=== PATIENT | female | born 1945 | race Caucasian/White ===

== ENCOUNTER → 2018-01-27 11:25 | Outpatient (CLI) | payer MEDICARE, OTHER, SELFPAY ==
[2018-01-27 14:49] LABS: Microalbumin,Random Urine < 5.0 mg/L (NO RANGE EST.)
[2018-01-27 14:52] LABS: AST(SGOT) 21 U/L (15-37); Alanine Aminotransfer ALT/SGPT 29 U/L (13-56); Albumin, Serum 3.6 g/dL (3.2-5.0); Alkaline Phosphatase 76 U/L (45-117); Anion Gap 9 (5-15); BUN 24 mg/dL (7-18); Bilirubin, Direct 0.16 mg/dL (0.00-0.30); Calcium,Total 8.8 mg/dL (8.5-10.1); Chloride 106 mmol/L (98-107); Cholesterol 135 mg/dL (200); Creatinine, Serum 0.83 mg/dL (0.55-1.02); EST Glomerular Filtration Rate 72 mL/min (>60); Est Glom Filt Rate - Afr Amer 87 mL/min (>60); Globulin 3.2 g/dL (2.2-4.2); Glucose 97 mg/dL (74-106); High Density Lipoprotein 46 mg/dL; Potassium 3.9 mmol/L (3.5-5.1); Protein, Total 6.8 g/dL (6.4-8.2); Sodium Level 141 mmol/L (136-145); Thyroid Stim Hormone (TSH) 1.21 uIU/mL (0.358-3.74); Triglycerides 176 mg/dL; Very Low Density Lipoprotein 35 mg/dL (5-40)
== END ==
PROVIDERS: Family Provider Family Medicine; PCP Family Medicine; Visit Provider Family Medicine
DX: I25.10 Atherosclerotic heart disease of native coronary artery without angina pectoris (principal); E11.9 Type 2 diabetes mellitus without complications; R00.2 Palpitations
CPT/HCPCS: 36415; 80048; 80061; 80076; 82043; 82570; 83036; 84443

== ENCOUNTER → 2018-03-07 09:08 | Outpatient (CLI) | payer MEDICARE, OTHER, SELFPAY ==
[2018-03-07 11:32] LABS: Magnesium 1.6 mg/dL (1.6-2.6)
== END ==
PROVIDERS: Family Provider Family Medicine; PCP Family Medicine; Visit Provider Physician Assistant Medical
DX: I25.10 Atherosclerotic heart disease of native coronary artery without angina pectoris (principal); I10 Essential (primary) hypertension; R00.2 Palpitations
CPT/HCPCS: 36415; 83735; 93225; 93226

== ENCOUNTER → 2018-07-25 11:20 | Outpatient (CLI) | payer MEDICARE, OTHER, SELFPAY ==
[2018-07-25 12:30] LABS: AST(SGOT) 15 U/L (15-37); Alanine Aminotransfer ALT/SGPT 29 U/L (13-56); Albumin, Serum 3.3 g/dL (3.2-5.0); Alkaline Phosphatase 82 U/L (45-117); Anion Gap 9 (5-15); BUN 16 mg/dL (7-18); BUN/Creat Ratio 18.2 RATIO (10-20); Bilirubin, Direct 0.13 mg/dL (0.00-0.30); Chloride 105 mmol/L (98-107); Cholesterol 154 mg/dL (200); Creatinine, Serum 0.88 mg/dL (0.55-1.02); EST Glomerular Filtration Rate 67 mL/min (>60); Est Glom Filt Rate - Afr Amer 81 mL/min (>60); Globulin 3.3 g/dL (2.2-4.2); Glucose 107 mg/dL (74-106); High Density Lipoprotein 41 mg/dL; Potassium 3.7 mmol/L (3.5-5.1); Protein, Total 6.6 g/dL (6.4-8.2); Sodium Level 142 mmol/L (136-145); Triglycerides 251 mg/dL; Very Low Density Lipoprotein 50 mg/dL (5-40)
== END ==
PROVIDERS: Nurse Practitioner Family; Family Provider Family Medicine; PCP Family Medicine; Visit Provider Family Medicine
DX: E11.9 Type 2 diabetes mellitus without complications (principal); E78.5 Hyperlipidemia, unspecified; Z79.899 Other long term (current) drug therapy
CPT/HCPCS: 36415; 80048; 80061; 80076; 83036

== ENCOUNTER → 2018-08-22 08:22 | Outpatient (CLI) | payer MEDICARE, OTHER, SELFPAY ==
--- NOTE | 2018-08-22 08:26 | CT_ITS ---
STUDY: CT CHEST WITH CONTRAST REASON FOR EXAM: Female, 72 years old. Follow-up right lower lobe lung nodule. RADIATION DOSAGE (If Supplied By Facility): CTDIvol = ( 16.72 ) mGy, DLP = ( 701.43 ) mGycm TECHNIQUE: Transaxial imaging was performed following intravenous administration of 100 ml of Isovue 300 contrast material. Multiplanar coronal and sagittal images were reformatted. Individualized dose optimization techniques were used for this CT. COMPARISON: CT of the chest, November 03, 2016. FINDINGS: The lungs are well expanded. There is a vague irregular density in the lateral aspect of the right upper lobe measuring 2 mm in diameter. This is best seen on image 52 of series 4. This appears unchanged from the previous examination. An area of pleural-based irregularity in the posterior lateral right lung base which appears markedly decreased from the previous examination nodularity, seen in this area is now absent. Lungs are otherwise clear. There is no demonstrated pleural abnormality. Sternal cerclage wires and vascular clips are present from a prior sternotomy and coronary artery bypass graft procedure (CABG). The heart is normal in size. Normal pericardium. Normal mediastinum. Normal hilar regions. Normal enhanced pulmonary arteries. There is atherosclerotic calcification of the aortic arch with tortuosity and elongation of the aortic arch and descending thoracic aorta. There are multi-level degenerative changes of the thoracic spine. There is a type I hiatal hernia. There are cysts in the liver which appear unchanged from the previous examination. CT/Chest WITH Contrast IMPRESSION: 1. Nonvisualization of the nodular density described at the right lung base on the prior study. There is minimal linear density seen in this area on the current exam. 2. Smaller nodular density more superiorly in the right lower lobe which appears stable. 3. No other interval change. Electronically Signed: Juan Ramon Fofana DO at 21:11 EST Tel [phone], Service support ,
== END ==
PROVIDERS: Family Provider Family Medicine; PCP Family Medicine; Referring Provider Family Medicine; Visit Provider Family Medicine
DX: R93.89 Abnormal findings on diagnostic imaging of other specified body structures (principal)
CPT/HCPCS: 71260; Q9967

== ENCOUNTER → 2018-11-03 13:49 | Outpatient (CLI) | payer MEDICARE, SELFPAY ==
--- NOTE | 2018-11-03 14:08 | VDLE_ITS ---
Reason For Study: LEG PAIN RIGHT LEFT CFV is compressible, spontaneous, phasic, GSV is normal. competent and demonstrates normal CFV is compressible, spontaneous, phasic, augmentation. competent, and demonstrates normal Procedure augmentation. Exam performed in department. FV is compressible, spontaneous, phasic, A preliminary report was called and/or faxed competent and demonstrates normal to Tina Beaulieu. augmentation. POP V is compressible, spontaneous, phasic, competent and demonstrates normal augmentation. T/P Trunk is compressible. PTV is compressible. LT PerV is compressible. Interpretation Summary Deep veins of the left lower extremity are patent and compressible segmentally. There is no evidence of left lower extremity deep vein thrombosis. Valvular competence appears intact within the proximal deep venous system on the left . The left greater saphenous vein appears patent and compressible segmentally. Ordering Physician: Sim Beaulieu Referring Physician: Sim Beaulieu Performed By: Modesta Harvey RVT
--- OUTSIDE RECORDS SUMMARY | 2019-01-08 03:37 | XMS RPT_ITS ---
:1945 Author Organization OHIP Support Name Relationship Address Phone AUDIE ESCOBEDO Unavailable Unavailable + [place] [address] S Unavailable Unavailable Unavailable SHAUM, AUDREY Unavailable [address] + [place] [address] AUDIE ESCOBEDO Unavailable Unavailable + [place] [address] S Unavailable Unavailable Unavailable SHAUM, AUDREY Unavailable [address] + [place] [address] S Unavailable Unavailable Unavailable SHAUM, AUDREY Unavailable [address] + [place] [address] AUDIE ESCOBEDO Unavailable Unavailable + [place] [address] S Unavailable Unavailable Unavailable SHAUM, AUDREY Unavailable [address] + [place] [address] S Unavailable Unavailable Unavailable SHAUM, AUDREY Unavailable [address] + [place] [address] S Unavailable Unavailable Unavailable SHAUM, AUDREY Unavailable [address] + [place] [address] S Unavailable Unavailable Unavailable SHAUM, AUDREY Unavailable [address] + [place] [address] S Unavailable Unavailable Unavailable SHAUM, AUDREY Unavailable [address] + [place] [address] S Unavailable Unavailable Unavailable SHAUM, AUDREY Unavailable [address] + [place] [address] S Unavailable Unavailable Unavailable SHAUM, AUDREY Unavailable [address] + [place] [address] S Unavailable Unavailable Unavailable SHAUM, AUDREY Unavailable [address] + [place] [address] SHAUM, AUDREY Unavailable [address] + [place] [address] SHAUM, AUDREY Unavailable [address] + [place] [address] S Unavailable Unavailable Unavailable SHAUM, AUDREY Unavailable [address] + [place] [address] SHAUM, AUDREY Unavailable [address] + [place] [address] SHAUM, AUDREY Unavailable [address] + [place] [address] Care Team Providers Name Role Phone NURA SOUZA, DR. CASEY Maya Attending Unavailable LUCINDA SOUZA, DR. ENGLAND Primary Care Unavailable NURA SOUZA, DR. CASEY Maya Attending Unavailable LUCINDA SOUZA, DR. ENGLAND Primary Care Unavailable MoodTomas avendaño Attending Unavailable Roof, Kishor H Referring Unavailable May Gonzalez Attending Unavailable Mandy Montelongo Attending Unavailable FigueroaRosana Attending Unavailable Jolliff, Karine Primary Care Unavailable FigueroaRosana Referring Unavailable Roof, Kishor H Consulting Unavailable MoodispaTomas prabhakar Attending Unavailable Jolliff, Karine Attending Unavailable Jolliff, Karine Referring Unavailable Jolliff, Karine Primary Care Unavailable Roof, Kishor H Attending Unavailable Jolliff, Karine Primary Care Unavailable Roof, Kishor H Referring Unavailable Jolliff, Karine Attending Unavailable Jolliff, Karine Primary Care Unavailable Roof, Kishor H Consulting Unavailable FigueroaRosana Attending Unavailable Jolliff, Karine Referring Unavailable Jolliff, Karine Primary Care Unavailable Jolliff, Karine Attending Unavailable Jolliff, Karine Primary Care Unavailable Christofer, Sim Attending Unavailable Beaulieu, Sim Referring Unavailable Jolliff, Karine Primary Care Unavailable Roof, Kishor H Attending Unavailable Jolliff, Karine Referring Unavailable PROBLEMS PROBLEMS DATE TYPE CONDITION / CODE ATTENDING STATUS SOURCE 10/02/2018 Unknown I48.0 - Paroxysmal Tomas Amaro Active [place] atrial fibrillation / Community I48.0(ICD-10) Hospital Repository 08/08/2018 Unknown Z95.1 - Presence of Kishor Gay Active [place] aortocoronary bypass Community graft / Z95.1(ICD-10) Hospital Repository 03/07/2018 Unknown I10 - Essential Figueroa, Active [place] (primary) Rosana Downing [facility] hypertension / Hospital I10(ICD-10) Repository 04/10/2018 Unknown R00.2 - Palpitations Tomas Amaro Active [place] / R00.2(ICD-10) [facility] Hospital Repository 03/02/2018 Unknown R01.1 - Cardiac Amee Figueroa murmur, unspecified / Rosana Downing [facility] R01.1(ICD-10) Hospital Repository 05/22/2018 Unknown I25.10 - Karine Berg Active [place] Atherosclerotic heart [facility] disease of [facility] coronary artery Repository without angina pectoris / I25.10(ICD-10) PROCEDURES PROCEDURES No Procedure Records FoundRESULTS RESULTS VENOUS DUPLEX LOWER Observed: 11/03/2018 Status: F Source: [place] EXTREMITY 2:36 PM [facility] REPOSITORY [facility] Cardiovascular Services [address] [place] [address] Venous Duplex US, Unilateral 11/03/18 1411 MR#: [id number] Acct: [id number] Name: AISLINN SALAS Rep #: [id number] : 1945 73 From: Jethro Brady MD Attending Dr: Sim Beaulieu MD Status: REG CLI Ordering Dr: Sim Beaulieu MD Date: 11/03/18 Location: CVS Sex: F C Admitted: Reason For Study: LEG PAIN RIGHT LEFT CFV is compressible, spontaneous, phasic, GSV is normal. competent and demonstrates normal CFV is compressible, spontaneous, phasic, augmentation. competent, and demonstrates normal Procedure augmentation. Exam performed in department. FV is compressible, spontaneous, phasic, A preliminary report was called and/or faxed competent and demonstrates normal to Tina Beaulieu. augmentation. POP V is compressible, spontaneous, phasic, competent and demonstrates normal augmentation. T/P Trunk is compressible. PTV is compressible. LT PerV is compressible. Interpretation Summary Deep veins of the left lower extremity are patent and compressible segmentally. There is no evidence of left lower extremity deep vein thrombosis. Valvular competence appears intact within the proximal deep venous system on the left . The left greater saphenous vein appears patent and compressible segmentally. Ordering Physician: Sim Beaulieu Referring Physician: Sim Beaulieu Performed By: Modesta Harvey RVT 11/03/18 1435 Date Jethro Brady MD CC: Karine Berg MD; Sim Beaulieu MD Date Dictated: 11/03/18 1411 Date Transcribed: 11/03/18 1435 Strategy Lead: Signed CHEST WITH CONTRAST Observed: 08/22/2018 Status: F Source: [place] 8:27 AM [facility] REPOSITORY [facility] Imaging Services [address] [place] [address] Chest WITH Contrast MR#: [id number] Acct: [id number] Name: AISLINN SALAS Rep #: [id number] : 1945 F 72 From: Juan Ramon Fofana DO PCP: Karine Berg MD Status: REG CLI Study: Chest WITH Contrast Date of Exam: 08/22/18 Exam# [id number] Ordering Dr: Karine Berg MD STUDY: CT CHEST WITH CONTRAST REASON FOR EXAM: Female, 72 years old. Follow-up right lower lobe lung nodule. RADIATION DOSAGE (If Supplied By Facility): CTDIvol = ( 16.72 ) mGy, DLP = ( 701.43 ) mGycm TECHNIQUE: Transaxial imaging was performed following intravenous administration of 100 ml of Isovue 300 contrast material. Multiplanar coronal and sagittal images were reformatted. Individualized dose optimization techniques were used for this CT. COMPARISON: CT of the chest, November 03, 2016. FINDINGS: The lungs are well expanded. There is a vague irregular density in the lateral aspect of the right upper lobe measuring 2 mm in diameter. This is best seen on image 52 of series 4. This appears unchanged from the previous examination. An area of pleural-based irregularity in the posterior lateral right lung base which appears markedly decreased from the previous examination nodularity, seen in this area is now absent. Lungs are otherwise clear. There is no demonstrated pleural abnormality. Sternal cerclage wires and vascular clips are present from a prior sternotomy and coronary artery bypass graft procedure (CABG). The heart is normal in size. Normal pericardium. Normal mediastinum. Normal hilar regions. Normal enhanced pulmonary arteries. There is atherosclerotic calcification of the aortic arch with tortuosity and elongation of the aortic arch and descending thoracic aorta. There are multi-level degenerative changes of the thoracic spine. There is a type I hiatal hernia. There are cysts in the liver which appear unchanged from the previous examination. CT/Chest WITH Contrast IMPRESSION: 1. Nonvisualization of the nodular density described at the right lung base on the prior study. There is minimal linear density seen in this area on the current exam. 2. Smaller nodular density more superiorly in the right lower lobe which appears stable. 3. No other interval change. Electronically Signed: Juan Ramon Fofana DO at 21:11 EST Tel [phone], Service support , CC: Karine Berg MD Strategy Lead: Signed CARDIOLOGY VISIT Observed: 08/08/2018 Status: F Source: [place] REPORT 10:38 AM [facility] REPOSITORY [facility] [address] [place] [address] OFFICE VISIT Date of Service: 08/08/18 MR#: [id number] Acct: [id number] Name: AISLINN SALAS Rep #: [id number] : 1945 Provider: MARQUITA Gay Age/Sex: 72/F Location: [facility] Status: Signed HPI HPI Details: AISLINN SALAS, is a 72 F who presents to the office today for a cardiovascular outpatient follow-up. She has a history of coronary artery disease with bypass surgery in August 2016. She had an JOHNSON to the LAD, SVG to the OM and SVG to the PDA. She also has a history of atrial fibrillation, TIA, heparin-induced thrombocytopenia, DVT, and pulmonary embolism. She is no longer on coumadin d/t resolved DVT. Pt. denies chest, arm, jaw, or neck discomfort. Her exercise tolerance is stable. Pt. denies symptoms of CHF, lightheadedness, dizziness, near syncope, or syncopal episodes. Pt. denies edema or claudication issues. Pt. denies orthopnea, PND, fever, chills, blood in urine, blood in stool, myalgia, or unexplainable fatigue. She states palpitations every 3-4 days. These last for about 2 minutes. She states feeling generalized weakness. Intake Vital Signs08/08/18 Height 5 ft 3 in 08/08/18 Weight: 212 lb 08/08/18 Body Mass Index (BMI) 37.5 08/08/18 Blood Pressure 128/62 H 08/08/18 Blood Pressure Location Lt brachial Intake Visit Reasons: INTERMITTENT TACH PER PCP Principal Systems Architect Required: No Accompanied by: none Is patient in pain?: No Allergies heparin Allergy (Verified 08/08/18 09:07) Other Medications Omeprazole [Prilosec] 20 mg PO DAILY 01/18/15 [History Confirmed 03/02/18] Lisinopril/Hydrochlorothiazide [Zestoretic 20/25 Tablet] 20 - 25 mg PO DAILY 01/24/15 [History Confirmed 03/02/18] Aspirin E.C. [Ecotrin] 81 mg PO DAILY@0800 11/04/16 [History Confirmed 03/02/18] Atorvastatin Calcium [Lipitor] 40 mg PO QHS 11/04/16 [History Confirmed 03/02/18] Folic Acid 0.8 mg PO DAILY@0800 11/04/16 [History Confirmed 03/02/18] Metformin HCl [Metformin HCl ER] 500 mg PO 11/04/16 [History Confirmed 03/02/18] atorvastatin 40 mg tablet 40 mg PO QDAY 02/28/18 [History Confirmed 03/02/18] coenzyme Q 10 10 mg capsule 10 mg PO ONCE 03/02/18 [History Confirmed 03/02/18] magnesium oxide 400 mg (241.3 mg magnesium) tablet 400 mg PO BID #60 tab 03/08/18 [Rx] metoprolol succinate ER 50 mg tablet,extended release 24 hr 100 mg PO DAILY tab 08/08/18 [History Confirmed 08/08/18] PFSH Medical History Paroxysmal atrial fibrillation (Chronic) Pure hypercholesterolemia (Chronic) Essential (primary) hypertension (Chronic) Atherosclerosis of [place] coronary artery of [place] heart without angina pectoris (Chronic) Palpitations (Chronic) Cardiac murmur (Chronic) Abnormal electrocardiogram [ECG] [EKG] (Chronic) Encounter for long-term current use of high risk medication (Chronic) Cerebral infarction (Chronic) 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) Secondary pulmonary arterial hypertension (Chronic) H/O: hysterectomy (Resolved) GERD (gastroesophageal reflux disease) (Chronic) Fatigue (Acute) Shortness of breath (Acute) Surgical History H/O coronary artery bypass surgery (Resolved) Family History Father CAD (coronary artery disease) CVA (cerebral vascular accident) Mother Diabetes Brother ablation for SVT x2 Social History Smoking Status: Never smoker alcohol intake: never substance use type: does not use caffeine: Yes Type: coffee Number of servings: 1 what type of physical activity do you participate in: none ROS Const Const: Negative for body ache, fever(s), chills, fatigue or weakness ENT ENT: Negative for dizziness Cardio Chest Pain: No Palpitations: Yes Edema: None Muscle aches with walking: None Resp Respiratory: Negative for SOB with activity, SOB at rest, SOB orthopnea\SOB lying down or paroxysmal nocturnal dyspnea GI GI: Negative nausea, black,tarry stools, bright, red blood in stools or vomiting blood/hematemesis : Negative for hematuria or frequent nighttime urination/ nocturia Musc Musc: Negative for muscle aches/ myalgia Skin Skin: Negative non-healing lesions or rash Neuro Neuro: Negative for weakness, dizziness, lightheadedness, near syncope, syncope or orthostatic symptoms Endo Endo: Negative for fatigue Allergy Allergy/Immunology: Negative for rash Cardiology Exam Const Appearance: cooperative, no acute distress and well developed Nutritional Appearance: obese Orientation: alert, awake and oriented x3 Head Head: normocephalic and atraumatic Ears: hearing grossly normal bilaterally Nose: external nose normal Face and Sinus: face symmetric Mouth: moist mucous membranes Eyes General: appearance normal, both eyes and all related structures Conjunctivae: conjunctivae normal Pupils: PERRL EOM: EOM intact bilaterally Neck Neck: normal visual inspection, no lymphadenopathy and no JVD Carotids: Negative bruit Neck Mass: Negative Neck mass Chest Chest inspection: normal inspection of the chest, symmetric chest movement and normal respiratory effort Auscultation: Bilateral: Clear to Auscultation Cardio Palpation: normal PMI Rate: regular rate Rhythm: regular rhythm Heart sounds: S1 normal and S2 normal; negative rub, gallop or murmur GI GI: normal to inspection and obese Neuro General: alert, awake, oriented x3, CN's II-XI intact bilaterally and moves all extremities Extremities Pulses: Normal: Right Posterior Tibial Pulse, Left Posterior Tibial Pulse, Right Radial Pulse, Left Radial Pulse Lower Extremity Edema: None: Bilateral Psych Psychological: normal affect Supplemental Info Heart catheterization from August 2016 showed elevated LVEDP, normal LV size, wall motion, systolic function, estimate ejection fraction of 65%, significant proximal left main coronary artery disease, LAD status post takeoff of septal office machine servicer apprentice system shows 95-90% stenosis, mid LAD with 50% stenosis, OM prior to bifurcation shows 75% stenosis, RCA that was a large dominant vessel with proximal minimal luminal irregularities, mid 25% stenosis, mid to distal 75% stenosis, and distal 25% stenosis. Echocardiogram from July 2016 showed ejection fraction of 70%, mildly enlarged left atrium, mild to moderate mitral annular calcification, extension of the mitral and a consultation onto the posterior mitral valve leaflet, trivial mitral valve insufficiency, trivial tricuspid valve insufficiency, mild focal aortic valve thickening, trivial pulmonic valve insufficiency, bubble contrast study negative for right to left interatrial shunt, and unable to calculate RVSP. 24-hour Holter monitor from February 2018 showed normal sinus rhythm, minimum heart rate of 50 bpm, maximum heart rate of 103 bpm, average heart of 69 bpm, rare PACs with no runs noted, rare PVCs with no runs noted, and patient reported no symptoms. Exercise tolerance test from 2016 was a technically inadequate exercise tolerance test with peak exercise ECG with continued nonspecific T wave abnormality and decreased functional capacity. Carotid duplex ultrasound from December 2012 showed right internal carotid artery with approximate 50% stenosis and moderate, 16-49%, stenosis of the left extracranial internal carotid. Assessment AND Plan 1. Atherosclerosis of [place] coronary artery of [place] heart without angina pectoris I25.10 CABG x3- JOHNSON to LAD, SVG to OM1 and PDA 08/23/16 Plan Patient denies any chest pain, arm pain, jaw pain, neck pain, shortness of breath, or fatigue suggestive of angina at this time. We will continue to monitor this. We will not make any medication regimen changes and will continue risk factor modification. 2. H/O coronary artery bypass surgery Z95.1 CABG x3- JOHNSON to LAD, SVG to OM1 and PDA 08/23/16 Plan She will continue current treatment plan as outlined above. Orders Orders: 3. Paroxysmal atrial fibrillation I48.0 Plan She appears to be maintaining regular rhythm. Her EKG in February 2018 showed sinus rhythm. It is unclear if her palpitations are related to ectopic beats, paroxysmal atrial fibrillation, or other dysrhythmia. She will undergo a 30-day event monitor for further evaluation. Her heart rate remains well controlled today in office. She is not on oral anticoagulation due to resolved DVT per patient. Depending on results further recommendation will be made Orders Orders: 4. Palpitations R00.2 Plan As noted above, she will undergo a 30-day event monitor to evaluate rhythm associated with palpitations. Her 24-hour Holter monitor in February 2018 showed normal sinus rhythm, rare PACs, and rare PVCs. 5. Essential (primary) hypertension I10 Plan Patient's blood pressure is well-controlled today in the office. We will continue to monitor this. We will not make any medication regimen changes. 6. Pure hypercholesterolemia E78.00 Plan Lipid panel from July 2018 showed cholesterol: 154, HDL: 41, LDL: 63, and triglycerides: 251. She will continue with current statin medication. Plan Detail Additional Comments Thank you for allowing us to participate in the patient's plan of care, if you have any questions please do not hesitate to call. This note was generated using a voice recognition system and there may be incorrect words, spelling, or punctuation that were not noted upon reviewing the office note prior to saving. Coding Level of Care Code Off vis,est,level 3 Diagnoses Atherosclerosis of [place] coronary artery of [place] heart without angina pectoris I25.10 H/O coronary artery bypass surgery Z95.1 Paroxysmal atrial fibrillation I48.0 Palpitations R00.2 Essential (primary) hypertension I10 Pure hypercholesterolemia E78.00 Coding Level of Care Code Off vis,est,level 3 Diagnoses Atherosclerosis of [place] coronary artery of [place] heart without angina pectoris I25.10 H/O coronary artery bypass surgery Z95.1 Paroxysmal atrial fibrillation I48.0 Palpitations R00.2 Essential (primary) hypertension I10 Pure hypercholesterolemia E78.00 08/08/18 1038 <Electronically signed by Kishor Gay WET END OPERATOR-C> Date Kishor Gay WET END OPERATOR-C Cosigner Signature: Date (if applicable) CC: Karine Berg MD 12 LEAD EKG PERFORMED Observed: 08/08/2018 Status: F Source: [place] [facility] 9:08 AM [facility] [address] [place] [address] 12 Lead EKG performed by [facility] 08/08/18906 MR#: [id number] Acct: [id number] Name: AISLINN SALAS Rep #: [id number] : 1945 72 From: Kishor Gay NP-Jakub Attending Dr: Kishor Gay NP Status: DEP AMB Ordering Dr: Kishor Gay Date: 08/08/18 Location: [facility] Sex: F C Admitted: [facility]/12 Lead EKG performed by [facility] ECG Report Interpretation Consider repeat ECGElectronically signed on 08/09/2018 at 19:39 by Tomas Amaro Software Version [id number] 08/09/181939 Date Kishor Gay WET END OPERATORBrie CC: Karine Berg MD Date Dictated: 08/08/18906 Date Transcribed: 08/08/18906 Strategy Lead: DARIEL Signed HEMOGLOBIN A1C Collected: 07/25/2018 Status: F Source: [place] 11:23 AM [facility] REPOSITORY Order Comment: Order Date: 09/15/17 Order Info: [id number] - *Hepatic Function Panel DR Zulma BERG ORDERED: A1C, BMP WET END OPERATOR.Lena GAY ORDERED: LIVER, LIPID TYPE CODE TESTS RESULT OUT OF RANGE REFERENCE UNITS LAB L501.9985 4.2-6.3 % Normal HGB A1C 6.0 Performed By: #### L501.9985 #### [facility] [address] [place], [address] BASIC METABOLIC Collected: 07/25/2018 Status: F Source: [place] PROFILE (BMP) 11:22 AM [facility] REPOSITORY Order Comment: Order Date: 09/15/17 Order Info: [id number] - *Hepatic Function Panel DR Zulma BERG ORDERED: A1C, BMP JAVIER GAY ORDERED: LIVER, LIPID Order Info: [id number] - *Lipid Profile CC PCP Comments: 12 hours fasting, may have water. TYPE CODE TESTS RESULT OUT OF RANGE REFERENCE UNITS LAB L501.0100 74-106 mg/dL High GLU 107 Result Comment: Fasting Glucose result from 100 to 125 mg/dL suggests IMPAIRED HOMEOSTASIS per A.D.A. criteria. Please note revised GLUCOSE reference range effective 2017. LAB L501.1000 7-18 mg/dL Normal BUN 16 LAB L501.1100 0.55-1.02 mg/dL Normal CREAT,SERUM 0.88 Result Comment: The validity of the calculated GFR AND GFRAA in patients over 70 years has not been determined. Clinical correlation is essential. LAB L501.1110 >60 mL/min Normal EST GFR 67 Result Comment: Non- GFR Calc LAB L501.1115 >60 mL/min Normal EST GFR - AA 81 Result Comment: GFR Calc LAB L501.1300 10-20 RATIO Normal BUN/CRE 18.2 LAB L501.2200 8.5-10.1 mg/dL CA Normal 9.0 LAB L501.5300 136-145 mmol/L NA Normal 142 LAB L501.5600 3.5-5.1 mmol/L K Normal 3.7 LAB L501.5900 98-107 mmol/L CL Normal 105 LAB L501.6100 21.0-32.0 mmol/L Normal CO2 28.0 LAB L501.6200 5-15 Normal GAP 9 Performed By: #### L500.2500 #### [facility] [address] [place], [place], [id number] LIVER PROFILE Collected: 07/25/2018 Status: F Source: [place] 11:22 AM [facility] REPOSITORY Order Comment: Order Date: 09/15/17 Order Info: [id number] - *Hepatic Function Panel DR Zulma BERG ORDERED: A1C, BMP WET END OPERATOR.Lena GAY ORDERED: LIVER, LIPID Order Info: [id number] - *Lipid Profile CC PCP Comments: 12 hours fasting, may have water. TYPE CODE TESTS RESULT OUT OF RANGE REFERENCE UNITS LAB L501.1500 6.4-8.2 g/dL Normal T PROT 6.6 LAB L501.1800 3.2-5.0 g/dL Normal ALB 3.3 LAB L501.1950 2.2-4.2 g/dL Normal GLOB 3.3 LAB L501.4100 15-37 U/L Normal AST 15 LAB L501.4305 45-117 U/L Normal ALK P 82 LAB L501.4405 13-56 U/L Normal ALT 29 LAB L501.4600 0.20-1.00 mg/dL Normal T BILI 0.70 LAB L501.4700 0.00-0.30 mg/dL Normal D BILI 0.13 Performed By: #### L500.3400 #### [facility] [address] [place], [place], [id number] LIPID PROFILE Collected: 07/25/2018 Status: F Source: [place] 11:22 AM [facility] REPOSITORY Order Comment: Order Date: 09/15/17 Order Info: [id number] - *Hepatic Function Panel DR Zulma BERG ORDERED: A1C, BMP WET END OPERATOR.Lena GAY ORDERED: LIVER, LIPID Order Info: [id number] - *Lipid Profile CC PCP Comments: 12 hours fasting, may have water. TYPE CODE TESTS RESULT OUT OF RANGE REFERENCE UNITS LAB L501.4900 200 mg/dL Normal CHOL 154 Result Comment: <200 mg/dL Desirable 200-240 mg/dL Borderline >240 mg/dL High Risk LAB L501.5000 mg/dL High TRIG 251 Result Comment: The drugs N-Acetylcysteine and Metamizole may falsely depress this assay. Serum Triglycerides Reference Interval Normal <150 mg/dL Borderline high 150 - 199 mg/dL High 200 - 499 mg/dL Very High > or = 500 mg/dL LAB L501.6400 mg/dL Normal HDL 41 Result Comment: The drugs N-Acetylcysteine and Metamizole may falsely depress this assay. Reference Range HDL <40 mg/dL Low HDL Cholesterol HDL >or= 60 mg/dL High HDL Cholesterol LAB L501.6500 0-130 mg/dL Normal LDL 63 LAB L501.6600 5-40 mg/dL High VLDL 50 Performed By: #### L500.4100 #### [facility] [address] [place], [address] MAGNESIUM Collected: 03/07/2018 Status: F Source: [place] 9:48 AM [facility] REPOSITORY TYPE CODE TESTS RESULT OUT OF RANGE REFERENCE UNITS LAB L501.5200 1.6-2.6 mg/dL Normal MG 1.6 Result Comment: Slight Hemolysis, Result may be falsely increased. Performed By: #### L501.5200 #### [facility] [address] [place], [address] CARDIOLOGY VISIT Observed: 03/03/2018 Status: F Source: [place] REPORT 7:59 AM [facility] REPOSITORY [facility] [address] [place] [address] OFFICE VISIT Date of Service: 03/02/18 MR#: [id number] Acct: [id number] Name: AISLINN SAALS Rep #: [id number] : 1945 Provider: Rosana Figueroa Age/Sex: 72/F Location: [facility] Status: Signed HPI HPI Details: AISLINN SALAS, is a 72 F who presents to the office today for a cardiovascular follow-up. She has a history of coronary artery disease with bypass surgery in August 2016. She had an JOHNSON to the LAD, SVG to the OM and SVG to the PDA. She also has a history of atrial fibrillation, TIA, heparin-induced thrombocytopenia, DVT and pulmonary embolism. She is no longer on coumadin. From a cardiac standpoint, patient is doing well. She does not have any chest discomfort/heaviness/tightness. She does have some muscle discomfort from driving for long periods of time. Her exercise tolerance is stable for her age. She does not have any worsening symptoms of shortness of breath. She does not have any orthopnea. She denies PND. She does not have any symptoms of congestive heart failure. She does have palpitations in the evenings when she is tired. She notes that it is racing when she checks her pulse. This is different than what she had when she had her 30 day event monitor, at that time it felt like it was skipping. She does not have any lightheadedness or dizziness. She does not have any near-syncope or syncope. She does not have any lower extremity edema. She does not have any symptoms of claudication. 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 [Ecotrin] 81 mg PO DAILY@0800 11/04/16 [History Confirmed 03/02/18] Atorvastatin Calcium [Lipitor] 40 mg PO QHS 11/04/16 [History Confirmed 03/02/18] Folic Acid 0.8 mg PO DAILY@0800 11/04/16 [History Confirmed 03/02/18] Metformin HCl [Metformin HCl ER] 500 mg PO 11/04/16 [History Confirmed 03/02/18] atorvastatin 40 mg tablet 40 mg PO QDAY 02/28/18 [History Confirmed 03/02/18] coenzyme Q10 10 mg capsule 10 mg PO ONCE 03/02/18 [History Confirmed 03/02/18] magnesium oxide 400 mg capsule 400 mg PO QDAY cap 03/02/18 [History Confirmed 03/02/18] Ejection fraction %: 65 to 70 PFSH Medical History Palpitations (Chronic) Cerebral infarction (Chronic) Secondary pulmonary arterial hypertension (Chronic) HLD (hyperlipidemia) (Chronic) Atherosclerotic heart disease of [place] coronary artery without angina pectoris (Chronic) GERD (gastroesophageal reflux disease) (Chronic) Hypertension (Chronic) Fatigue (Acute) Shortness of breath (Acute) Surgical History H/O: hysterectomy (Resolved) H/O coronary artery bypass surgery (Resolved) Family History Father CAD (coronary artery disease) CVA (cerebral vascular accident) Mother Diabetes Brother ablation for SVT x2 Social History Smoking Status: Never smoker alcohol intake: never substance use type: does not use caffeine: Yes Type: coffee Number of servings: 1 what type of physical activity do you participate in: none ROS Const Const: Negative for weakness, fatigue, fever(s) or headache(s) Eyes Eyes: Negative for blind spots, loss of peripheral vision or transient loss of vision ENT ENT: Negative for headache(s), dizziness, tinnitus or Nosebleed/epistaxis Cardio Chest Pain: No Palpitations: Yes (see HPI) Edema: None Muscle aches with walking: None Resp Respiratory: Negative for SOB with activity, SOB at rest, SOB orthopnea\SOB lying down or Cough GI GI: Negative nausea, vomiting, heartburn or vomiting blood/hematemesis : Negative for hematuria Musc Musc: Negative for muscle aches/ myalgia Neuro Neuro: Negative for weakness, headache(s), dizziness, near syncope, syncope, lightheadedness or orthostatic symptoms Asael Hematologic/Lymphatic: Negative for easy bleeding Endo Endo: Negative for fatigue Cardiology Exam Const Appearance: cooperative, no acute distress and well developed Orientation: alert, awake and oriented x3 Head Head: normocephalic and atraumatic Mouth: moist mucous membranes Eyes General: appearance normal, both eyes and all related structures Conjunctivae: conjunctivae normal Pupils: PERRL EOM: EOM intact bilaterally Neck Neck: normal visual inspection, no lymphadenopathy and no JVD Carotids: Negative bruit Neck Mass: Negative Neck mass Chest Chest inspection: normal inspection of the chest and symmetric chest movement Auscultation: Bilateral: Clear to Auscultation Cardio Palpation: normal PMI Rate: regular rate Rhythm: regular rhythm Heart sounds: S1 normal and S2 normal; negative rub, gallop or murmur GI GI: normal to inspection, soft, no hepatosplenomegaly and bowel sounds present; negative tender Neuro General: alert, awake, oriented x3, CN's II-XI intact bilaterally and moves all extremities Extremities Pulses: Normal: Right Posterior Tibial Pulse, Left Posterior Tibial Pulse, Right Radial Pulse, Left Radial Pulse Lower Extremity Edema: None: Bilateral Psych Psychological: normal affect Assessment AND Plan 1. Atherosclerosis of [place] coronary artery of [place] heart without angina pectoris I25.10 CABG x3- JOHNSON to LAD, SVG to OM1 and PDA 08/23/16 Plan - LIS Horvath Stable, from a cardiac standpoint patient does not have any symptoms of angina. We recommend that they continue with current aggressive medical management and risk factor modification. Orders Orders: 2. Essential hypertension I10 Plan - LIS Horvath Blood pressure is well controlled on current medications, we do not recommend any changes at this time. Orders Orders: 3. Pure hypercholesterolemia E78.00; E78.0 Plan - LIS Horvath Recent lipid profile demonstrates total cholesterol 135, HDL 46, LDL 54. Will not make any adjustments. These are adequately controlled. 4. Palpitations R00.2 Plan - LIS Horvath Patient does have concerns over palpitations. This is different than what she had described at her previous visit where she had a 30 day event monitor. Will obtain a magnesium. We will also obtain a 24-hour Holter monitor. Orders Orders: Plan Detail Other Orders Orders: Additional Comments - LIS Horvath The above patient was discussed with Dr. Amaro, he agrees with plan of care. Thank you for allowing us to participate in patient's plan of care, if you have any questions please do not hesitate to call. This note was generated using a voice recognition system and there may be incorrect words, spelling or punctuation errors that were not noted when reviewing the office note prior to saving. Follow Up 6 Months (MMM) 1 Year (PFM) Coding Level of Care Code Off vis,est,level 4 Diagnoses Atherosclerosis of [place] coronary artery of [place] heart without angina pectoris I25.10 [place] vs. transplanted heart: [place] heart Essential hypertension I10 Hypertension type: essential hypertension Pure hypercholesterolemia E78.00; E78.0 Hyperlipidemia type: pure hypercholesterolemia Palpitations R00.2 Coding Level of Care Code Off vis,est,level 4 Diagnoses Atherosclerosis of [place] coronary artery of [place] heart without angina pectoris I25.10 [place] vs. transplanted heart: [place] heart Essential hypertension I10 Hypertension type: essential hypertension Pure hypercholesterolemia E78.00; E78.0 Hyperlipidemia type: pure hypercholesterolemia Palpitations R00.2 03/02/18 1605 <Electronically signed by Rosana HAYS> Date Rosana HAYS 03/03/18 0759<Electronically signed by Tomas Amaro MD> Cosigner Signature: Date (if applicable) Tomas Amaro MD CC: Karine Berg MD 12 LEAD EKG PERFORMED Observed: 03/02/2018 Status: F Source: [facility] BY [facility] 2:32 PM [facility] REPOSITORY [facility] [address] [place] [address] 12 Lead EKG performed by [facility] 03/02/18 1432 MR#: [id number] Acct: [id number] Name: AISLINN SALAS Rep #: [id number] : 1945 72 From: Rosana HAYS Attending Dr: Rosana Figueroa Status: REG AMB Ordering Dr: Rosana Figueroa Date: 03/02/18 Location: [facility] Sex: F C Admitted: [facility]/12 Lead EKG performed by [facility] ECG Report Interpretation Sinus Rhythm Low voltage in precordial leads. ABNORMAL Electronically signed on 03/02/2018 at 15:03 by Tomas Amaro 03/02/18 1504 Date Rosana HAYS CC: Karine Berg MD Date Dictated: 03/02/181431 Date Transcribed: 03/02/181431 Strategy Lead: JOSUE Signed DIMER Collected: 01/30/2018 Status: F Source: [facility] 7:41 AM [facility] REPOSITORY TYPE CODE TESTS RESULT OUT OF RANGE REFERENCE UNITS LAB DIMER(LOINC <=0.49 mcg/mL FEU ) D-Dimer 0.46 Result Comment: The result of the D-Dimer test should be evaluated in the context of all the clinical and laboratory data available. In those instances where the laboratory result does not agree with the clinical evaluation, additional tests should be performed accordingly. Performed By: #### DIMER #### [facility] [address] [place], [place] [address] MICROALB:CREAT Collected: 01/27/2018 Status: F Source: RAGINI RATIO,RANDOM UR 11:30 AM [facility] REPOSITORY TYPE CODE TESTS RESULT OUT OF RANGE REFERENCE UNITS LAB L501.1200 NO RANGE EST. mg/dL 73.80 Normal UR CREAT LAB L502.0500 NO RANGE EST. mg/L < 5.0 Normal MICROALBUMI N,UR LAB L502.0600 <30 mg/g CRE mg/g CRE Test Normal not performed MALB:CREAT Performed By: #### L502.0250 #### [facility] [address] [place], [place], [address] BASIC METABOLIC Collected: 01/27/2018 Status: F Source: RAGINI PROFILE (BMP) 11:30 AM [facility] REPOSITORY TYPE CODE TESTS RESULT OUT OF RANGE REFERENCE UNITS LAB L501.0100 74-106 mg/dL Normal GLU 97 Result Comment: Please note revised GLUCOSE reference range effective 2017. LAB L501.1000 7-18 mg/dL High BUN 24 LAB L501.1100 0.55-1.02 mg/dL Normal CREAT,SERUM 0.83 Result Comment: The validity of the calculated GFR AND GFRAA in patients over 70 years has not been determined. Clinical correlation is essential. LAB L501.1110 >60 mL/min Normal EST GFR 72 Result Comment: Non- GFR Calc LAB L501.1115 >60 mL/min Normal EST GFR - AA 87 Result Comment: GFR Calc LAB L501.1300 10-20 RATIO High BUN/CRE 29.0 LAB L501.2200 8.5-10.1 mg/dL CA Normal 8.8 LAB L501.5300 136-145 mmol/L NA Normal 141 LAB L501.5600 3.5-5.1 mmol/L K Normal 3.9 LAB L501.5900 98-107 mmol/L CL Normal 106 LAB L501.6100 21.0-32.0 mmol/L Normal CO2 26.0 LAB L501.6200 5-15 Normal GAP 9 Performed By: #### L500.2500, L500.3400, L500.4100, L501.9520 #### [facility] [address] [place], [place], [address] LIVER PROFILE Collected: 01/27/2018 Status: F Source: [place] 11:30 AM [facility] REPOSITORY TYPE CODE TESTS RESULT OUT OF RANGE REFERENCE UNITS LAB L501.1500 6.4-8.2 g/dL Normal T PROT 6.8 LAB L501.1800 3.2-5.0 g/dL Normal ALB 3.6 LAB L501.1950 2.2-4.2 g/dL Normal GLOB 3.2 LAB L501.4100 15-37 U/L Normal AST 21 LAB L501.4305 45-117 U/L Normal ALK P 76 LAB L501.4405 13-56 U/L Normal ALT 29 Result Comment: Please note revised ALT reference range effective 2017. LAB L501.4600 0.20-1.00 mg/dL Normal T BILI 0.90 LAB L501.4700 0.00-0.30 mg/dL Normal D BILI 0.16 Performed By: #### L500.2500, L500.3400, L500.4100, L501.9520 #### [facility] [address] [place], [place], [address] LIPID PROFILE Collected: 01/27/2018 Status: F Source: RAG[place]I 11:30 AM [facility] REPOSITORY TYPE CODE TESTS RESULT OUT OF RANGE REFERENCE UNITS LAB L501.4900 200 mg/dL Normal CHOL 135 Result Comment: <200 mg/dL Desirable 200-240 mg/dL Borderline >240 mg/dL High Risk LAB L501.5000 mg/dL Normal TRIG 176 Result Comment: The drugs N-Acetylcysteine and Metamizole may falsely depress this assay. Serum Triglycerides Reference Interval Normal <150 mg/dL Borderline high 150 - 199 mg/dL High 200 - 499 mg/dL Very High > or = 500 mg/dL LAB L501.6400 mg/dL Normal HDL 46 Result Comment: The drugs N-Acetylcysteine and Metamizole may falsely depress this assay. Reference Range HDL <40 mg/dL Low HDL Cholesterol HDL >or= 60 mg/dL High HDL Cholesterol LAB L501.6500 0-130 mg/dL Normal LDL 54 LAB L501.6600 5-40 mg/dL Normal VLDL 35 Performed By: #### L500.2500, L500.3400, L500.4100, L501.9520 #### [facility] [address] [place], [place], [address] THYROID STIM HORMONE Collected: 01/27/2018 Status: F Source: [place]AN (TSH) 11:30 AM [facility] REPOSITORY TYPE CODE TESTS RESULT OUT OF RANGE REFERENCE UNITS LAB L501.9520 0.358-3.74 uIU/mL Normal TSH 1.21 Performed By: #### L500.2500, L500.3400, L500.4100, L501.9520 #### [facility] [address] [place], [place], [address] HEMOGLOBIN A1C Collected: 01/27/2018 Status: F Source: [place] 11:30 AM [facility] REPOSITORY TYPE CODE TESTS RESULT OUT OF RANGE REFERENCE UNITS LAB L501.9985 4.2-6.3 % Normal HGB A1C 6.0 Performed By: #### L501.9985 #### [facility] [address] [place], [address] CBC Collected: 01/16/2018 Status: F Source: [facility] 8:52 AM [facility] REPOSITORY TYPE CODE TESTS RESULT OUT OF REFERENCE UNITS RANGE LAB WBC(LOINC) 4.60-10.80 10 3/mcL WBC 7.40 LAB RBCCT(LOINC 4.20-5.40 10 6/mcL ) RBC 4.41 LAB HGB(LOINC) 12.0-16.0 G/dL Hgb 14.3 LAB HCT(LOINC) 37.0-47.0 % Hct 40.5 LAB MCV(LOINC) 80.0-94.0 fL MCV 91.7 LAB MCH(LOINC) 27.0-31.2 pg High MCH 32.4 LAB MCHC(LOINC) 33.0-37.0 G/dL MCHC 35.4 LAB RDW(LOINC) 11.5-14.5 % RDW 13.3 LAB PLT(LOINC) 130-400 10 3/mcL Platelet 228 LAB MPV(LOINC) 7.4-10.4 fL MPV 9.1 Performed By: #### CBC, ADIFF, ANEU, GFR, FE, LD, CMP, IBC, DIMER #### [address] [address] #### FERR #### [address] [address] .AUTO DIFF Collected: 01/16/2018 Status: F Source: [facility] 8:52 AM [facility] REPOSITORY TYPE CODE TESTS RESULT OUT OF REFERENCE UNITS RANGE LAB NACHO(LOINC) 37.0-80.0 % Neutrophil % 76.6 LAB LYM(LOINC) 10.0-50.0 % Lymphocyte % 13.1 LAB MON(LOINC) 1.7-13.0 % Monocyte % 7.8 LAB EO(LOINC) 0.0-7.0 % Eosinophil % 2.0 LAB BAS(LOINC) 0.0-2.5 % Basophil % 0.5 LAB ABLYM(LOIN 0.77-3.85 10 3/mcL C) Lymphocyte, 1.00 Absolute LAB COLBY(LOINC 0.15-1.00 10 3/mcL ) Monocyte, 0.60 Absolute LAB AEOS(LOINC 0.00-0.40 10 3/mcL ) Eosinophil, 0.10 Absolute LAB ABAS(LOINC 0.00-0.19 10 3/mcL ) Basophil, 0.00 Absolute Performed By: #### CBC, ADIFF, ANEU, GFR, FE, LD, CMP, IBC, DIMER #### [address] [address] #### FERR #### [place] [address] .NEUABS Collected: 01/16/2018 Status: F Source: [facility] 8:52 AM [facility] REPOSITORY TYPE CODE TESTS RESULT OUT OF REFERENCE UNITS RANGE LAB ANEU(LOINC) 2.85-6.16 10 3/mcL Neutrophil, 5.70 Absolute Performed By: #### CBC, ADIFF, ANEU, GFR, FE, LD, CMP, IBC, DIMER #### [address] [address] #### FERR #### [place] [address] .GFR Collected: 01/16/2018 Status: F Source: [facility] 8:52 AM [facility] REPOSITORY TYPE CODE TESTS RESULT OUT OF REFERENCE UNITS RANGE LAB GFRAA(LOINC ml/min/1.73 ) sqm GFR 92 [place] Result Comment: GFR Population mean for , Non- Americans Ages 20-29 = 116 mL/min/1.73 sq.m. Ages 30-39 = 107 mL/min/1.73 sq.m. Ages 40-49 = 99 mL/min/1.73 sq.m. Ages 50-59 = 93 mL/min/1.73 sq.m. Ages 60-69 = 85 mL/min/1.73 sq.m. Ages 70+ = 75 mL/min/1.73 sq.m. Chronic Kidney Disease: Less than 60 mL/min/1.73 square meters End Stage Renal Disease: Less than 15 mL/min/1.73 square meters LAB GFRNO(LOINC) ml/min/1.73sqm GFR Non- >60 Result Comment: GFR Population mean for , Non- Americans Ages 20-29 = 116 mL/min/1.73 sq.m. Ages 30-39 = 107 mL/min/1.73 sq.m. Ages 40-49 = 99 mL/min/1.73 sq.m. Ages 50-59 = 93 mL/min/1.73 sq.m. Ages 60-69 = 85 mL/min/1.73 sq.m. Ages 70+ = 75 mL/min/1.73 sq.m. Chronic Kidney Disease: Less than 60 mL/min/1.73 square meters End Stage Renal Disease: Less than 15 mL/min/1.73 square meters Performed By: #### CBC, ADIFF, ANEU, GFR, FE, LD, CMP, IBC, DIMER #### [address] [address] #### FERR #### [place] [address] FE Collected: 01/16/2018 Status: F Source: [facility] 8:52 AM [facility] REPOSITORY TYPE CODE TESTS RESULT OUT OF RANGE REFERENCE UNITS LAB FE(LOINC) 65-170 mcg/dL Iron 83 Performed By: #### CBC, ADIFF, ANEU, GFR, FE, LD, CMP, IBC, DIMER #### [address] [address] #### FERR #### [address] [address] LDH Collected: 01/16/2018 Status: F Source: [facility] 8:52 AM [facility] REPOSITORY TYPE CODE TESTS RESULT OUT OF RANGE REFERENCE UNITS LAB LD(LOINC) 100-190 IU/L High LDH 224 Performed By: #### CBC, ADIFF, ANEU, GFR, FE, LD, CMP, IBC, DIMER #### [address] [address] #### FERR #### [place] [address] CMP Collected: 01/16/2018 Status: F Source: [facility] 8:52 AM [facility] REPOSITORY TYPE CODE TESTS RESULT OUT OF REFERENCE UNITS RANGE LAB 1547-9 83-110 mg/dL GLUCOSE High 114 LAB NA(LOINC) 136-146 mEq/L Sodium Level 140 LAB K(LOINC) 3.5-5.1 mEq/L Potassium Level 4.3 LAB CL(LOINC) 98-107 mEq/L Chloride 102 LAB CO2(LOINC) 23-31 mEq/L CO2 29 LAB EBAL(LOINC mEq/L ) Electrolyte Balance 9.0 LAB BUN(LOINC) 7.0-18.0 mg/dL BUN High 19.7 LAB CRE(LOINC) 0.6-1.2 mg/dL Creatinine Lvl (s) 0.7 LAB BC(LOINC) 7-27 ratio High BUN/Creatinine 28 Ratio LAB CA(LOINC) 8.4-10.2 mg/dL Calcium Lvl 9.8 LAB PROT(LOINC 6.0-8.3 G/dL ) Total Protein 6.5 LAB ALB(LOINC) 3.4-4.8 G/dL Albumin Level 4.2 LAB GLB(LOINC) G/dL Globulin 2.3 LAB AG(LOINC) 1.1-2.5 ratio A/G Ratio 1.8 LAB BILT(LOINC 0.2-1.0 mg/dL ) Bili Total 0.7 LAB AP(LOINC) 40-135 IU/L Alk Phos 70 LAB AST(LOINC) 10-40 IU/L AST/SGOT 21 LAB ALT(LOINC) 10-35 IU/L ALT/SGPT 23 Performed By: #### CBC, ADIFF, ANEU, GFR, FE, LD, CMP, IBC, DIMER #### [address] [address] #### FERR #### [address] [address] IBC Collected: 01/16/2018 Status: F Source: [facility] 8:52 AM [facility] REPOSITORY TYPE CODE TESTS RESULT OUT OF RANGE REFERENCE UNITS LAB IBC(LOINC) 250-450 mcg/dL TIBC 267 Performed By: #### CBC, ADIFF, ANEU, GFR, FE, LD, CMP, IBC, DIMER #### [address] [address] #### FERR #### [place] [id number] DIMER Collected: 01/16/2018 Status: F Source: [facility] 8:52 AM [facility] [place] REPOSITORY TYPE CODE TESTS RESULT OUT OF RANGE REFERENCE UNITS LAB DIMER(LOINC <=0.49 mcg/mL FEU ) High D-Dimer 0.57 Result Comment: The result of the D-Dimer test should be evaluated in the context of all the clinical and laboratory data available. In those instances where the laboratory result does not agree with the clinical evaluation, additional tests should be performed accordingly. Performed By: #### CBC, ADIFF, ANEU, GFR, FE, LD, CMP, IBC, DIMER #### [place] [address] [place], [place] [address] #### FERR #### [place] [address] FERR Collected: 01/16/2018 Status: F Source: [facility] 8:52 AM [facility] REPOSITORY TYPE CODE TESTS RESULT OUT OF REFERENCE UNITS RANGE LAB FERR(LOINC) 8-252 ng/mL Ferritin 124 Performed By: #### CBC, ADIFF, ANEU, GFR, FE, LD, CMP, IBC, DIMER #### [place] [address] [place], [place] [address] #### FERR #### [place] [address] ALLERGIES ALLERGIES DATE TYPE / CODE NAME / CODE REACTION SEVERITY SOURCE 08/08/2018 Drug heparin/F006 Other Unknown [facility] Allergy/4160 615695([facility] [address](SNOMED M) Repository CT) ENCOUNTERS ENCOUNTERS ADMIT/DISCHARGE ACCOUNT NUMBER ADMITTING ENCOUNTER LOCATION SOURCE CLASS 11/03/2018 [id number] Ambulatory [facility] ding:[facility] Repository 08/22/2018 [id number] Ambulatory [facility] ding:CT Repository 08/11/2018 [id number] Ambulatory [facility] ding:[facility] Repository 08/11/2018 [id number] Ambulatory [facility]MSBuilding: [facility] Repository 08/08/2018/08/08/20 [id number] Ambulatory BMSBuilding: [place] 18 [facility] Repository 07/25/2018 [id number] Ambulatory [facility] ding:MFPLAB Repository 03/07/2018 [id number] Ambulatory [facility] ding:PSN Repository 03/07/2018 [id number] Ambulatory BMSBuilding: [facility] Repository 03/02/2018/03/02/20 [id number] Ambulatory BMSBuilding: [place] 18 BMS.[facility] Repository 02/28/2018 [id number] Ambulatory [facility] Repository 02/17/2018 [id number] Ambulatory BMSBuilding: [place] BMS.[facility] Repository 01/30/2018/01/31/20 [id number] Ambulatory [address] ding:OLAB [facility] Repository 01/27/2018 [id number] Ambulatory [facility] ding:MFPLAB Repository 01/16/2018/01/17/20 [id number] Ambulatory [address] ding:[facility] Repository PAYERS PAYERS ENCOUNTER GUARANTOR PAYER SUBSCRIBER SOURCE 11/03/2018 AISLINN A Primary AISLINN A [place] [id number] NARENDRA Insurance[facility] A [facility] [id number] [address]Vhw: Number: Repository [id number] () Date:2018-11-03 11/03/2018 Secondary IASLINN A [place] Insurance:HUMANA [facility] Community MEDICARE PPOPolicy [id number] Hospital Number: Repository [id number] Date:[id number] [address]SV: 11/03/2018 Tertiary NOT GIVENUNK [place] Insurance:SELF PAY [facility] Number: Effective Repository Date:2018-11-03 08/22/2018 AISLINN A Primary AISLINN A [place] [id number] NARENDRA Insurance:[facility] [id number] [address]Xbs: Number: Repository [id number] (HP) Date:2018-07-31 08/22/2018 Secondary AISLINN A [place] Insurance:SHENENCE EDDIE: [facility] [id number] Hospital Number: Repository [id number] Date:[id number] [address]GT: 08/22/2018 Tertiary NOT GIVENUNK [place] Insurance:SELF PAY [facility] Number: Effective Repository Date:2018-07-31 08/11/2018 AISLINN A Primary NOT GIVENUNK [place] [id number] NARENDRA Insurance:SELF PAY [facility] [address]Hli: Number: Effective Repository Date:2018-08-08 (HP) 08/11/2018 AISLINN A Primary AISLINN A [place] [id number] NARENDRA Insurance:MEDICARE SHAUMDOB: [facility], PART A [facility] [id number] [facility] [address]Slb: Number: Repository [id number] (HP) Date:2018-07-25 08/11/2018 Secondary AISLINN A [place] Insurance:EVERENCE ADRIENB: [facility] [id number] Hospital Number: Repository [id number] Date:[id number] [address]EZ: 08/11/2018 Tertiary NOT GIVENUNK [place] Insurance:SELF PAY [facility] Number: Effective Repository Date:2018-08-08 08/08/2018 AISLINN A Primary AISLINN A [place] [id number] NARENDRA Insurance:MEDICARE [facility] [facility], PART A [facility] [id number] [facility]ers [facility] [address]Jdi: Number: Repository [id number] (HP) Date:2018-07-25 08/08/2018 Secondary AISLINN A [place] Insurance:EVERENCE ADRIEN: [facility] [id number] Hospital Number: Repository [id number] Date:[id number] [place] [address] [place] [address]TB: 08/08/2018 Tertiary NOT GIVENUNK Ragini Insurance:SELF PAY [facility] Number: Effective Repository Date:2018-08-08 07/25/2018 AISLINN A Primary AISLINN A Ragini [id number] [address] Insurance:MEDICARE SHAUMDOB: [facility] PART A [facility] [id number] Corners Regional Health Center 60123Wkb: Number: Repository [id number] (HP) Date:2018-07-25 07/25/2018 Secondary AISLINN A Ragini [facility] [id number] Hospital Number: Repository [id number] Date:6812-88-48[address] [place] [address]SA: 07/25/2018 Tertiary NOT GIVENUNK [place] Insurance:SELF PAY [facility] Number: Effective Repository Date:2018-07-25 03/07/2018 IASLINN A Primary AISLINN A Ragini [id number] NARENDRA Insurance:MEDICARE SHAUMDOB: [facility], PART A [facility] [id number] Corners Regional Health Center [address]Nze: Number: Repository [id number] (HP) Date:2018-03-02 03/07/2018 Secondary AISLINN A [place] Insurance:CINDY JURADO: [facility] [id number] Hospital Number: Repository [id number] Date:[id number] [place] [address]TW: 03/07/2018 Tertiary NOT GIVENUNK [place] Insurance:SELF PAY [facility] Number: Effective Repository Date:2018-03-02 03/07/2018 IASLINN A Primary AISLINN A Ragini [id number] NARENDRA Insurance:MEDICARE [facility] PART A [facility] [id number] Corners Regional Health Center [address]Ayo: Number: Repository [id number] (HP) Date:2018-03-02 03/07/2018 Secondary AISLINN A [place] Insurance:EVERENCE ADRIENB: [facility] [id number] Hospital Number: Repository [id number] Date:[id number] [place] [address]PN: 03/07/2018 Tertiary NOT GIVENUNK Ragini Insurance:SELF PAY [facility] Number: Effective Repository Date:2018-03-07 03/02/2018 AISLINN A Primary AISLINN A [place] [id number] NARENDRA Insurance:MEDICARE SHAUMDOB: [facility] PART A [facility] [id number] Corners Regional Health Center [address]Rah: Number: Repository [id number] (HP) Date:2017-09-27 03/02/2018 Secondary AISLINN A Ragini Insurance:EVERENCE ADRIENB: [facility] [id number] Hospital Number: Repository [id number] Date:[id number] [place] [address]IC: 03/02/2018 Tertiary NOT GIVENUNK Ragini Insurance:SELF PAY [facility] Number: Effective Repository Date:2017-09-27 02/28/2018 Aislinn A Primary Aislinn A Ragini [id number] Narendra Insurance:EVERENCE BuckumDOB: [facility] [id number] Corners Regional Health Center [address]Cqk: Number: Repository [id number] (HP) Date:[id number] [place] [address]QO: 02/28/2018 Secondary Aislinn A [place] Insurance:[facility]ARE [facility] [id number] Hospital Number: Repository [id number] Date:2018-02-28 02/28/2018 Tertiary NOT GIVENUNK [place] Insurance:SELF PAY [facility] Number: Effective Repository Date:2018-02-28 02/17/2018 Aislinn A Primary Aislinn A Ragini [id number] [place] Insurance:EVERENCE ShaumDOB: [facility] [id number] Corners Regional Health Center [address]Ttb: Number: Repository [id number] (HP) Date:8282-01-51MY [address] [place], [place] [address] [address]JN: 02/17/2018 Secondary Aislinn A Rag[place] Insurance:MEDICARE ShaumDOB: [facility] PART A [facility] [id number] Hospital Number: Repository [id number] Date:2018-02-17 02/17/2018 Tertiary NOT GIVENUNK Rag[place] Insurance:SELF PAY [facility] Number: Effective Repository Date:2018-02-17 01/30/2018 AISLINN A Primary AISLINN A [facility] SHAUMDOB: Insurance:MEDICARE SHAUMDOB: [facility] [id number] PART [facility] Number: [id number] Repository [facility] [id number] [address] [place], [place] Date:2018-01-30 [place], [place] [address]Okm: 330 [id number]: (HP) Name:[facility] [phone] [facility] (HP)Tel: (000) [address] [address]Oavimkaqq, 000-0000 (WP) [place] [address]MY: 01/30/2018 Secondary [facility] A [facility] Insurance:EVERENCE OF SHAUMDOB: [facility] Number: [id number] Repository [id number] Date:2018-01-30 [place], [place] [id number] [address]Uzd: (330) Name:[facility] [phone] (HP)Tel: [phone]: (WP) [phone] 01/27/2018 AISLINN A Primary AISLINN A [place] [id number] NARENDRA Insurance:MEDICARE SHAUMDOB: [facility] [address], PART A [facility] [id number] Corners Regional Health Center [address]Aut: Number: Repository [id number] (HP) Date:2018-01-27 01/27/2018 Secondary AISLINN A Rag[place] Insurance:EVERENCE SHAUMDOB: [facility] [id number] Hospital Number: Repository [id number] Date:8040-86-14JP [address] [place], [place] [address] [address]LU: 01/27/2018 Tertiary NOT GIVENUNK Ragini Insurance:SELF PAY [facility] Number: Effective Repository Date:2018-01-27 01/16/2018 AISLINN A Primary AISLINN A [facility] SHAUMDOB: Insurance:[facility]ICARE [facility] [place] [id number] [facility] Number: [id number] Repository [address] [id number] [facility] [place] Date:2018-01-16 [place], [place] [address]Fts: 330 [id number] [address]Yhn: (HP) Name:[facility] [phone] [facility] (HP)Tel: 000) [address] [address]Xqifofzsx, 000-0000 (WP) [place] [address]NX: 01/16/2018 Secondary [facility] A [facility] Insurance:EVERENCE OF SHAUMDOB: [facility] Number: [id number] Repository [id number] Date:2018-01-16 - [place], [place] [id number] [address]Ras: (330) Name:[facility] [phone] [place] (HP)Tel: [phone]: (WP) [phone]
== END ==
PROVIDERS: Family Provider Family Medicine; PCP Family Medicine; Referring Provider Family Medicine; Visit Provider Family Medicine
DX: M79.605 Pain in left leg (principal); Z86.73 Personal history of transient ischemic attack (TIA), and cerebral infarction without residual deficits
CPT/HCPCS: 93971

== ENCOUNTER → 2018-12-18 11:36 | Outpatient (CLI) | payer MEDICARE, SELFPAY ==
[2018-08-08 09:06] VITALS: BMI 37.5
[2018-12-18 14:43] LABS: Anion Gap 9 (5-15); BUN 16 mg/dL (7-18); BUN/Creat Ratio 21.1 RATIO (10-20); Calcium,Total 8.8 mg/dL (8.5-10.1); Chloride 106 mmol/L (98-107); Creatinine, Serum 0.76 mg/dL (0.55-1.02); EST Glomerular Filtration Rate 79 mL/min (>60); Est Glom Filt Rate - Afr Amer 96 mL/min (>60); Glucose 92 mg/dL (74-106); Microalbumin,Random Urine 6.4 mg/L (NO RANGE EST.); Microalbumin:Creatinine Ratio 10.1 mg/g CRE (<30 mg/g CRE); Potassium 4.1 mmol/L (3.5-5.1); Sodium Level 140 mmol/L (136-145)
== END ==
PROVIDERS: Family Provider Family Medicine; PCP Family Medicine; Referring Provider Family Medicine; Visit Provider Family Medicine
DX: E11.9 Type 2 diabetes mellitus without complications (principal); I10 Essential (primary) hypertension
CPT/HCPCS: 36415; 80048; 82043; 82570; 83036

== ENCOUNTER → 2019-04-12 07:34 | Outpatient (CLI) | payer MEDICARE, SELFPAY ==
[2019-03-26 09:30] VITALS: BMI 36.8
[2019-04-12 08:14] LABS: AST(SGOT) 24 U/L (15-37); Alanine Aminotransfer ALT/SGPT 34 U/L (13-56); Albumin, Serum 3.8 g/dL (3.2-5.0); Alkaline Phosphatase 82 U/L (45-117); Bilirubin, Direct 0.23 mg/dL (0.00-0.30); Cholesterol 162 mg/dL (200); Globulin 3.3 g/dL (2.2-4.2); High Density Lipoprotein 53 mg/dL; Protein, Total 7.1 g/dL (6.4-8.2); Triglycerides 186 mg/dL; Very Low Density Lipoprotein 37 mg/dL (5-40)
== END ==
PROVIDERS: Family Provider Family Medicine; PCP Family Medicine; Referring Provider Internal Medicine Cardiovascular Disease; Visit Provider Internal Medicine Cardiovascular Disease
DX: E78.5 Hyperlipidemia, unspecified (principal)
CPT/HCPCS: 80061; 80076

== ENCOUNTER → 2019-07-27 11:59 | Outpatient (CLI) | payer MEDICARE, SELFPAY ==
[2019-03-26 09:30] VITALS: BMI 36.8
[2019-07-27 16:05] LABS: Vitamin B12 1075 pg/mL (211-911)
== END ==
PROVIDERS: Family Provider Family Medicine; PCP Family Medicine; Referring Provider Family Medicine; Visit Provider Family Medicine
DX: R00.2 Palpitations (principal)
CPT/HCPCS: 36415; 82607

== ENCOUNTER → 2019-10-15 08:16 | Outpatient (CLI) | payer MEDICARE, SELFPAY ==
[2019-09-26 08:34] VITALS: BMI 37.9
[2019-10-15 09:36] LABS: AST(SGOT) 18 U/L (15-37); Alanine Aminotransfer ALT/SGPT 29 U/L (13-56); Albumin, Serum 3.6 g/dL (3.2-5.0); Alkaline Phosphatase 76 U/L (45-117); Bilirubin, Direct 0.17 mg/dL (0.00-0.30); Cholesterol 143 mg/dL (200); Globulin 3.2 g/dL (2.2-4.2); High Density Lipoprotein 57 mg/dL; Protein, Total 6.8 g/dL (6.4-8.2); Triglycerides 162 mg/dL; Very Low Density Lipoprotein 32 mg/dL (5-40)
== END ==
PROVIDERS: Family Provider Family Medicine; PCP Family Medicine; Referring Provider Internal Medicine Cardiovascular Disease; Visit Provider Internal Medicine Cardiovascular Disease
DX: E78.00 Pure hypercholesterolemia, unspecified (principal)
CPT/HCPCS: 36415; 80061; 80076

== ENCOUNTER → 2019-12-24 14:54 | Outpatient (CLI) | payer MEDICARE, SELFPAY ==
[2019-09-26 08:34] VITALS: BMI 37.9
[2019-12-24 18:36] LABS: AST(SGOT) 21 U/L (15-37); Alanine Aminotransfer ALT/SGPT 32 U/L (13-56); Anion Gap 7 (5-15); BUN 20 mg/dL (7-18); BUN/Creat Ratio 24.1 RATIO (10-20); Calcium,Total 9.1 mg/dL (8.5-10.1); Chloride 100 mmol/L (98-107); Cholesterol 162 mg/dL (200); Creatinine, Serum 0.83 mg/dL (0.55-1.02); EST Glomerular Filtration Rate 71 mL/min (>60); Est Glom Filt Rate - Afr Amer 86 mL/min (>60); Glucose 107 mg/dL (74-106); High Density Lipoprotein 43 mg/dL; Potassium 3.5 mmol/L (3.5-5.1); Sodium Level 137 mmol/L (136-145); Triglycerides 225 mg/dL; Very Low Density Lipoprotein 45 mg/dL (5-40)
[2019-12-24 18:38] LABS: Hemoglobin A1c 6.2 % (4.2-6.3)
[2019-12-24 18:43] LABS: Microalbumin,Random Urine < 5.0 mg/L (NO RANGE EST.)
== END ==
PROVIDERS: PCP Family Medicine; Referring Provider Family Medicine; Visit Provider Family Medicine
DX: E11.9 Type 2 diabetes mellitus without complications (principal); I10 Essential (primary) hypertension; E78.00 Pure hypercholesterolemia, unspecified
CPT/HCPCS: 36415; 80048; 80061; 82043; 82570; 83036; 84450; 84460

== ENCOUNTER → 2021-05-13 15:46 | Outpatient (CLI) | payer MEDICARE, SELFPAY ==
[2021-01-12 09:20] VITALS: BMI 36.6
[2021-05-13 18:07] LABS: Anion Gap 7 (5-15); BUN 28 mg/dL (7-18); BUN/Creat Ratio 23.9 RATIO (10-20); Calcium,Total 9.1 mg/dL (8.5-10.1); Chloride 102 mmol/L (98-107); Creatinine, Serum 1.17 mg/dL (0.55-1.02); EST Glomerular Filtration Rate 48 mL/min (>60); Est Glom Filt Rate - Afr Amer 58 mL/min (>60); Glucose 138 mg/dL (74-106); Potassium 4.2 mmol/L (3.5-5.1); Sodium Level 137 mmol/L (136-145)
== END ==
PROVIDERS: PCP Family Medicine; Referring Provider Family Medicine; Visit Provider Family Medicine
DX: E11.9 Type 2 diabetes mellitus without complications (principal)
CPT/HCPCS: 36415; 80048

== ENCOUNTER → 2021-05-29 08:56 | Outpatient (CLI) | payer MEDICARE, SELFPAY ==
[2021-01-12 09:20] VITALS: BMI 36.6
[2021-05-29 10:26] LABS: Anion Gap 8 (5-15); BUN 19 mg/dL (7-18); BUN/Creat Ratio 20.6 RATIO (10-20); Calcium,Total 8.9 mg/dL (8.5-10.1); Chloride 104 mmol/L (98-107); Creatinine, Serum 0.92 mg/dL (0.55-1.02); EST Glomerular Filtration Rate 63 mL/min (>60); Est Glom Filt Rate - Afr Amer 76 mL/min (>60); Glucose 145 mg/dL (74-106); Potassium 3.9 mmol/L (3.5-5.1); Sodium Level 138 mmol/L (136-145)
== END ==
PROVIDERS: PCP Family Medicine; Referring Provider Family Medicine; Visit Provider Family Medicine
DX: E11.59 Type 2 diabetes mellitus with other circulatory complications (principal)
CPT/HCPCS: 36415; 80048

== ENCOUNTER → 2021-06-15 07:56 | Outpatient (CLI) | payer MEDICARE, SELFPAY ==
[2021-06-15 09:42] LABS: AST(SGOT) 22 U/L (15-37); Alanine Aminotransfer ALT/SGPT 37 U/L (13-56); Albumin, Serum 3.6 g/dL (3.2-5.0); Alkaline Phosphatase 68 U/L (45-117); Cholesterol 123 mg/dL (200); Globulin 3.4 g/dL (2.2-4.2); High Density Lipoprotein 47 mg/dL; Triglycerides 179 mg/dL; Very Low Density Lipoprotein 36 mg/dL (5-40)
== END ==
PROVIDERS: PCP Family Medicine; Referring Provider Nurse Practitioner Gerontology; Visit Provider Nurse Practitioner Gerontology
DX: E78.00 Pure hypercholesterolemia, unspecified (principal)
CPT/HCPCS: 36415; 80061; 80076

== ENCOUNTER 2021-11-12 13:20 | Outpatient (CLI) | payer MEDICARE, SELFPAY ==
--- NOTE | 2021-11-12 13:25 | ECHOCS_ITS ---
Reason For Study: MURMUR Procedure This was a 2D Doppler, Color Flow transthoracic echocardiogram. The study was technically difficult. Due to body habitus. Contrast injection was performed. Exam performed in department. Left Ventricle Normal LV size. Left ventricular systolic function is normal. The estimated ejection fraction is 70 %. Diastolic function is indeterminate. No regional wall motion abnormalities noted. Right Ventricle Normal RV size. Normal systolic function. Atria Normal left atrium. Normal right atrium. No doppler evidence for ASD. Mitral Valve There is mild to moderate mitral annular calcification. Extension of the mitral annular calcification onto the posterior mitral valve leaflet. Trivial mitral valve insufficiency. Tricuspid Valve Normal tricuspid valve. Trivial tricuspid valve insufficiency. Unable to estimate RV systolic pressure/pulmonary artery pressure due to technically difficult study. Aortic Valve Trisinus/trileaflet aortic valve. Mild diffuse aortic valve thickening. Mild focal aortic valve calcification. Pulmonic Valve The pulmonic valve is not well visualized. Trivial pulmonic valve insufficiency. Great Vessels Normal sized aortic root. Pericardium/Pleural No pericardial effusion. MMode/2D Measurements & Calculations LVIDd: 4.3 cm IVSd: 1.1 cm Ao root diam: 2.8 cm LVIDs: 2.7 cm LVPWd: 0.99 cm RVDd: 2.9 cm FS: 37.1 % LAV(MOD-bp): 57.5 ml LA A4 area: 18.2 cm2 LA dimension(2D): 3.5 cm LAV(MOD-bp) Indexed: 28.9 ml/m2 LAV(MOD-sp2): 68.6 ml LAV(MOD-sp4): 49.0 ml RA A4 area: 11.9 cm2 Time Measurements MV dec time: 0.29 sec Doppler Measurements & Calculations MV E max syd: 100.7 cm/sec Lat Peak E' Syd: 5.7 cm/sec Med Peak E' Syd: 4.5 cm/sec MV A max syd: 141.9 cm/sec E/E' lat: 17.7 E/E' med: 22.6 MV E/A: 0.71 Ao V2 max: 149.0 cm/sec LV V1 max: 92.3 cm/sec PA V2 max: 65.9 cm/sec Ao max P.9 mmHg LV V1 max P.4 mmHg ECHO/Echo Complete W/ Contrast Interpretation Summary The study was technically difficult. Contrast injection was performed. Left ventricular systolic function is normal. The estimated ejection fraction is 70 %. There is mild to moderate mitral annular calcification. Extension of the mitral annular calcification onto the posterior mitral valve l eaflet. Trivial mitral valve insufficiency. Trivial tricuspid valve insufficiency. Mild diffuse aortic valve thickening. Mild focal aortic valve calcification. Trivial pulmonic valve insufficiency. Unable to estimate RV systolic pressure/pulmonary artery pressure due to techni danish difficult study. Diastolic function is indeterminate. Ordering Physician: Tomas Amaro Referring Physician: Karine Berg Performed By: Ingrid Lott, ELIJAH, RVT
== END 2021-11-12 23:59 | disposition short-term general hospital (02) ==
LOC: CVS 13:22
PROVIDERS: PCP Family Medicine; Visit Provider Internal Medicine Cardiovascular Disease
DX: I27.21 Secondary pulmonary arterial hypertension (principal); I48.0 Paroxysmal atrial fibrillation; E78.00 Pure hypercholesterolemia, unspecified; I10 Essential (primary) hypertension; I25.10 Atherosclerotic heart disease of native coronary artery without angina pectoris; R01.1 Cardiac murmur, unspecified; Z95.1 Presence of aortocoronary bypass graft
CPT/HCPCS: 93306; Q9957; A4216; C8929

== ENCOUNTER → 2022-05-26 | Outpatient (CLI) | payer MEDICARE, SELFPAY ==
[2022-05-26 12:11] LABS: Absolute Lymphocyte Count 0.77 X10^3/uL (0.83-4.51); Absolute Neutrophil Count 4.9 X10^3/uL (2.0-7.7); Basophil# 0.03 X10^3/uL; Basophil% 0.5 % (0-1); Eosinophil# 0.12 X10^3/uL; Eosinophils% 1.9 % (0-5); Hematocrit 40.5 % (37-47); Hemoglobin 13.4 g/dL (12.0-15.0); Lymphocyte # 0.77 X10^3/ul (0.83-4.51); Lymphocyte % 12.1 % (19-41); Mean Corp Hgb Conc 33.1 g/dL (32-36); Mean Corpuscular Hgb 30.8 pg (27.0-32.0); Mean Corpuscular Volume 93.1 fL (81-99); Monocyte# 0.57 X10^3/uL; Monocyte% 8.9 % (0-10); NRBC Flagged by Analyzer 0 % (0-5); Neutrophil # 4.86 X10^3/uL (2.7-7.7); Neutrophil % 76.1 % (47-70); Platelet Count 248 K/mm3 (150-450); RBC Distribution Width CV 13.5 % (11.6-14.6); RBC Distribution Width SD 45.8 fl (35.1-43.9); Red Blood Count 4.35 M/mm3 (4.2-5.4); White Blood Count 6.4 K/mm3 (4.4-11.0)
[2022-05-26 12:26] LABS: AST(SGOT) 28 U/L (15-37); Alanine Aminotransfer ALT/SGPT 40 U/L (13-56); Albumin, Serum 3.4 g/dL (3.2-5.0); Alkaline Phosphatase 68 U/L (45-117); Bilirubin, Direct 0.18 mg/dL (0.00-0.30); Cholesterol 131 mg/dL (200); Globulin 3.2 g/dL (2.2-4.2); High Density Lipoprotein 44 mg/dL; Protein, Total 6.6 g/dL (6.4-8.2); Triglycerides 191 mg/dL; Very Low Density Lipoprotein 38 mg/dL (5-40)
[2022-05-26 12:42] LABS: Anion Gap 4 (5-15); BUN 15 mg/dL (7-18); BUN/Creat Ratio 16.4 RATIO (10-20); Calcium,Total 9.5 mg/dL (8.5-10.1); Chloride 106 mmol/L (98-107); Creatinine, Serum 0.91 mg/dL (0.55-1.02); EST Glomerular Filtration Rate 63 mL/min (>60); Est Glom Filt Rate - Afr Amer 77 mL/min (>60); Glucose 134 mg/dL (74-106); Potassium 4.1 mmol/L (3.5-5.1); Sodium Level 141 mmol/L (136-145)
== END | disposition home or self-care (01) ==
LOC: MFPLAB 10:05
PROVIDERS: Nurse Practitioner Gerontology; PCP Family Medicine; Referring Provider Family Medicine; Visit Provider Family Medicine
DX: E11.9 Type 2 diabetes mellitus without complications (principal); R53.83 Other fatigue; E78.00 Pure hypercholesterolemia, unspecified
CPT/HCPCS: 36415; 80048; 80061; 80076; 85025

== ENCOUNTER → 2022-06-07 | Outpatient (CLI) | payer MEDICARE, SELFPAY | END | disposition home or self-care (01) | PROVIDERS: PCP Family Medicine; Visit Provider Family Medicine | DX: R39.89 Other symptoms and signs involving the genitourinary system (principal) | CPT/HCPCS: 87086; 87088 ==

== ENCOUNTER 2022-09-18 22:50 | Emergency (ER) | payer MEDICARE, SELFPAY ==
[2022-09-18 22:51] VITALS: BP 238/61; PULSE 91; RESP 16; TEMP 36.4; O2SAT 98; BMI 36.3
--- NOTE | 2022-09-18 22:54 | NURSING ---
Called for ecg
--- NOTE | 2022-09-18 23:02 | EKG12_ITS ---
Test Reason : PALPATATIONS Blood Pressure : / mmHG Vent. Rate : 090 BPM Atrial Rate : 090 BPM P-R Int : 164 ms QRS Dur : 086 ms QT Int : 366 ms P-R-T Axes : 044 034 076 degrees QTc Int : 447 ms Normal sinus rhythm Nonspecific ST and T wave abnormality Abnormal ECG Confirmed by DREW HDZ, ROGELIO ([id number]), editor city [place] ([id number]) on 09/20/2022 10:01:37 AM Referred By: Confirmed By:ROGELIO RUSSELL MD
[2022-09-18 23:13] VITALS: PULSE 83; RESP 18; O2SAT 100
--- NOTE | 2022-09-18 23:35 | RAD_ITS ---
EXAM: XR CHEST, 1 VIEW CLINICAL INDICATION: palpitations TECHNIQUE: Frontal view of the chest. This report was created using [employer] report generation technology. COMPARISON: 10/20/16. FINDINGS: LUNGS AND PLEURAL SPACES: Unremarkable. No consolidation or edema. No pneumothorax. No effusion. HEART: See below. MEDIASTINUM: Central airways and mediastinal contour are unremarkable. BONES/JOINTS: Degenerative changes of the acromioclavicular joints and spine. Intact sternotomy wires status post CABG. SOFT TISSUES: Unremarkable. RAD/Chest 1 View (Portable) IMPRESSION: No acute disease. Electronically Signed: Fer Christina MD at 23:55 EST ,
[2022-09-18 23:40] LABS: Absolute Lymphocyte Count 1.17 X10^3/uL (0.83-4.51); Absolute Neutrophil Count 5.3 X10^3/uL (2.0-7.7); Basophil# 0.05 X10^3/uL; Basophil% 0.7 % (0-1); Eosinophil# 0.16 X10^3/uL; Eosinophils% 2.2 % (0-5); Hematocrit 39.5 % (37-47); Hemoglobin 13.2 g/dL (12.0-15.0); Lymphocyte # 1.17 X10^3/ul (0.83-4.51); Lymphocyte % 15.7 % (19-41); Mean Corp Hgb Conc 33.4 g/dL (32-36); Mean Corpuscular Hgb 30.6 pg (27.0-32.0); Mean Corpuscular Volume 91.4 fL (81-99); Mean Platelet Vol. 10.3 fl (6.2-12.0); Monocyte# 0.71 X10^3/uL; Monocyte% 9.5 % (0-10); NRBC Flagged by Analyzer 0 % (0-5); Neutrophil # 5.32 X10^3/uL (2.7-7.7); Neutrophil % 71.5 % (47-70); Platelet Count 234 K/mm3 (150-450); RBC Distribution Width CV 13.3 % (11.6-14.6); RBC Distribution Width SD 45.5 fl (35.1-43.9); Red Blood Count 4.32 M/mm3 (4.2-5.4); White Blood Count 7.4 K/mm3 (4.4-11.0)
[2022-09-19] VITALS: BP 154/53; PULSE 85; RESP 16; O2SAT 96
[2022-09-19 00:06] LABS: Anion Gap 6 (5-15); BUN 21 mg/dL (7-18); BUN/Creat Ratio 24.1 RATIO (10-20); Calcium,Total 9.3 mg/dL (8.5-10.1); Chloride 105 mmol/L (98-107); Creatinine, Serum 0.87 mg/dL (0.55-1.02); EST Glomerular Filtration Rate 67 mL/min (>60); Est Glom Filt Rate - Afr Amer 81 mL/min (>60); Estimated Creatinine Clearance 44.08 ml/min; Glucose 170 mg/dL (74-106); Magnesium 1.7 mg/dL (1.6-2.6); Potassium 3.5 mmol/L (3.5-5.1); Sodium Level 139 mmol/L (136-145); Thyroid Stim Hormone (TSH) 2.46 uIU/mL (0.358-3.74); Troponin-I HS 14 pg/mL (3.0-54.0)
[2022-09-19 00:56] VITALS: BP 139/57; PULSE 79; RESP 15; O2SAT 97
--- NOTE | 2022-09-19 00:57 | EDS_ITS ---
HPI History of Present Illness Chief Complaint: Palpitations Narrative Narrative: Patient is a 77-year-old female with past medical history of paroxysmal atrial fibrillation as well as hypertension. She was seen by her family doctor and recently prescribed Remeron. She states that she took her first dose tonight at 8 PM and then around 930 began feeling like her heart was beating hard and fast and irregular. She states that there was no true chest pain shortness of breath nausea vomiting or diaphoresis associated with this. She states she waited 2 hours approximately and there was no improvement of symptoms and therefore she comes to the ER for evaluation. Patient denies any illicit drug use or excessive stimulant use [facility] Medical History Abnormal electrocardiogram [ECG] [EKG] Atherosclerosis of campo coronary artery of campo heart without angina pectoris Cardiac murmur Cerebral infarction Encounter for long-term current use of high risk medication Essential (primary) hypertension Fatigue GERD (gastroesophageal reflux disease) vermin exterminator use of drug Palpitations Paroxysmal atrial fibrillation Pure hypercholesterolemia Secondary pulmonary arterial hypertension Shortness of breath Home Medications atorvastatin 40 mg tablet 40 mg PO QHS 11/04/16 [History Last Taken Unknown] metformin 500 mg 24 hr tablet,extended release 500 mg PO DAILY 03/26/19 [History Last Taken Unknown] amlodipine 5 mg tablet 5 mg PO DAILY #90 tabs 09/26/19 [Rx Last Taken Unknown] lisinopril 20 mg-hydrochlorothiazide 25 mg tablet 2 tab PO DAILY 09/26/19 [History Last Taken Unknown] metoprolol succinate 100 mg tablet,extended release 24 hr 100 mg PO DAILY 10/21/21 [History Last Taken Unknown] mirtazapine 7.5 mg tablet 7.5 mg PO QHS 09/18/22 [History Last Taken Unknown] Allergy/AdvReac Type Severity Reaction Status Date / Time heparin Allergy Other Verified 09/18/22 22:50 Family History Father CAD (coronary artery disease) CVA (cerebral vascular accident) Mother Diabetes Brother ablation for SVT x2 Surgical History H/O coronary artery bypass surgery (~08/23/16) History of hysterectomy Social History (Reviewed 04/27/22 @ 09:16 by Mellissa Zarate FIGURE REFINISHER AND REPAIRER, FIGURE REFINISHER AND REPAIRER-C) Smoking Status: Never smoker alcohol intake: never substance use type: does not use caffeine: Yes Type: coffee Number of servings: 1 what type of physical activity do you participate in: none ROS ROS ED Constitutional Constitutional ED: Denies chills or fever(s) ENT ENT ED: Denies sore throat Cardiovascular Cardiovascular: Reports palpitations and racing heartbeat; Denies chest pain Respiratory/Chest Respiratory/Chest: Denies cough or dyspnea Gastrointestinal Gastrointestinal: Denies abdominal pain, diarrhea, nausea or vomiting Genitourinary Genitourinary ED: Denies dysuria Musculoskeletal Musculoskeletal: Denies myalgias Integumentary Denies rash Neurologic Neurologic: Denies headache(s) Psychiatric Psychiatric: Denies anxiety Hematologic/Lymphatic Hematologic/Lymphatic: Denies easy bleeding or easy bruising EXAM Physical Exam Const Vital Signs: 09/18/22 22:51 09/18/22 23:13 09/19/22 00:00 Temperature 97.6 F L Temperature Source Temporal Pulse Rate 91 83 85 Respiratory Rate 16 18 16 Blood Pressure 238/61 H 154/53 H Blood Pressure Mean 120 86 Pulse Ox 98 100 96 Oxygen Delivery Method Room Air Room Air Room Air 09/19/22 00:56 Temperature Temperature Source Pulse Rate 79 Respiratory Rate 15 Blood Pressure 139/57 H Blood Pressure Mean Pulse Ox 97 Oxygen Delivery Method Positive well nourished and well developed General Appearance ED: well developed HEENT Reports moist mucous membranes Eyes PERRL and EOMs intact bilaterally Neck supple Resp normal respiratory effort and clear to auscultation bilaterally Cardio regular rate and regular rhythm Rate: other Other Details: Radial pulses are +2-4 bilaterally are equal and symmetric Carotid pulses are equal and symmetric as well GI normal to inspection, nondistended, normoactive bowel sounds, non-tender and non-distended GI Narrative: No voluntary guarding or rigidity no pulsatile mass Auscultation: normoactive bowel sounds Palpation: soft Extremity normal to inspection Extremity Narrative: No asymmetric edema no pitting edema negative Homans' sign bilaterally Neuro oriented x3 and CN's II-XII intact bilaterally Sensorium / Orientation: alert Psych mental status grossly normal Skin no rashes or lesions noted MDM MDM MDM Narrative Medical decision making narrative: Patient arrived to the ER hypertensive but her initial EKG showed normal sinus rhythm without acute IL changes or cardiac dysrhythmia changes. Blood pressure was rechecked upon entry into the room and had spontaneously improved to approximately 160/60. With the patient's known history of paroxysmal atrial fibrillation and a report of a hard and fast heart rate at home this most likely was the cause of her palpitations. At this time she is not in atrial fibrillation with RVR but instead in normal sinus rhythm but in order to ensure that there is no cause for her recent symptoms a basic cardiac work-up was obtained. Blood work revealed no clinically significant findings and with the initial hypertension there were no signs of endorgan damage either. Patient was kept on the monitor and her heart rate remained normal sinus rhythm and blood pressure remained at an acceptable level between 140 and 160 systolically. Therefore at this time as the work-up does not reveal any acute kidney injury or cardiac event and electrolytes are within normal limits and patient's symptoms have remained gone since arrival there is no need for further work-up and she is safe for discharge. Lab Data Attestation: I reviewed the patient's lab results. Labs: Laboratory Results - last 24 hr 09/18/22 09/18/22 23:10 23:10 WBC 7.4 RBC 4.32 Hgb 13.2 Hct 39.5 MCV 91.4 MCH 30.6 MCHC 33.4 RDW Std Deviation 45.5 H RDW Coeff of Amber 13.3 Plt Count 234 MPV 10.3 Immature Gran % (Auto) 0.400 Neut % (Auto) 71.5 H Lymph % (Auto) 15.7 L [place] % (Auto) 9.5 Eos % (Auto) 2.2 Baso % (Auto) 0.7 Absolute Neuts (auto) 5.3 Absolute Lymphs (auto) 1.17 Nucleated RBC % 0 Sodium 139 Potassium 3.5 Chloride 105 Carbon Dioxide 28.0 Anion Gap 6 BUN 21 H Creatinine 0.87 Estim Creat Clear Calc 44.08 Est GFR (MDRD) Af Amer 81 Est GFR (MDRD) Non-Af 67 BUN/Creatinine Ratio 24.1 H Glucose 170 H Calcium 9.3 Magnesium 1.7 Troponin I High Sens 14 TSH 2.46 Radiography Diagnostic Testing: Clinical Impression(s) from Imaging Studies Chest X-Ray 09/18/22 23:35 IMPRESSION: No acute disease. Electronically Signed: Fer Christina MD at 23:55 EST , Chest x-ray as interpreted by the emergency medicine physician reveals no acute infiltrate pneumothorax or pleural effusion Discharge Plan Triage Chief Complaint: Palpitations ED Provider: Fer Osborne Dx/Rx/DC Orders Clinical Impression: Palpitations, Paroxysmal atrial fibrillation, Accelerated hypertension Instructions: ED Palpitations Prescriptions: No Action amlodipine 5 mg tablet 5 mg PO DAILY Qty: 90 0RF metoprolol succinate 100 mg tablet extended release 24 hr 100 mg PO DAILY lisinopril-hydrochlorothiazide 20-25 mg tablet 2 tab PO DAILY Label Comments: BLOOD PRESSURE, HEART atorvastatin 40 MG tablet 40 mg PO QHS metformin 500 mg tablet,ER leon.retention 24 hr 500 mg PO DAILY mirtazapine 7.5 mg tablet 7.5 mg PO QHS Primary Care Provider: Karine Berg Referrals: Karine Berg MD [Primary Care Provider] - Activity Restrictions/Additional Instructions: Please do not take your mirtazapine/Remeron as less than 1% of people who are on this medication can experience a cardiac arrhythmia. Talk to your family doctor on Tuesday about whether he should continue this or not. Your work-up today does not show any electrolyte abnormalities or abnormal heart rhythm in the ER. If you have any further concerns please return to the ER for repeat evaluation Disposition Disposition: Home, Self Care Discharge Date/Time: 09/19/22 01:06
== END 2022-09-19 01:06 | disposition home or self-care (01) ==
LOC: ED 23:25
PROVIDERS: Emergency Provider Emergency Medicine; PCP Family Medicine; Visit Provider Emergency Medicine
DX: R00.2 Palpitations (principal); I48.0 Paroxysmal atrial fibrillation; I10 Essential (primary) hypertension; E78.00 Pure hypercholesterolemia, unspecified; I25.10 Atherosclerotic heart disease of native coronary artery without angina pectoris
CPT/HCPCS: 71045; 80048; 83735; 84443; 84484; 85025; 93005; 99283

== ENCOUNTER → 2022-11-02 | Outpatient (CLI) | payer MEDICARE, SELFPAY ==
[2022-11-02 11:17] LABS: BUN 20 mg/dL (7-18); Creatinine, Serum 0.94 mg/dL (0.55-1.02); Glucose 113 mg/dL (74-106)
[2022-11-02 11:18] LABS: Anion Gap 7 (5-15); BUN/Creat Ratio 21.4 RATIO (10-20); Calcium,Total 9.2 mg/dL (8.5-10.1); Chloride 104 mmol/L (98-107); EST Glomerular Filtration Rate 62 mL/min (>60); Est Glom Filt Rate - Afr Amer 74 mL/min (>60); Magnesium 1.8 mg/dL (1.6-2.6); Potassium 4.1 mmol/L (3.5-5.1); Sodium Level 140 mmol/L (136-145)
[2022-11-02 11:19] LABS: Vitamin B12 898 pg/mL (211-911)
== END | disposition home or self-care (01) ==
PROVIDERS: PCP Family Medicine; Referring Provider Nurse Practitioner Gerontology; Visit Provider Nurse Practitioner Gerontology
DX: R00.2 Palpitations (principal)
CPT/HCPCS: 36415; 80048; 82607; 83735

== ENCOUNTER → 2022-11-12 | Outpatient (CLI) | payer MEDICARE, SELFPAY ==
--- NOTE | 2022-11-12 07:54 | CDU_ITS ---
Reason For Study: Lightheadedness Rt. Velocities/BP Lt. Velocities/BP Prox CCA 110.4/20.4 cm/sec. Prox CCA 94.1/9.3 cm/sec. Mid CCA 123.6/13.8 cm/sec. Mid CCA 122.1/12.3 cm/sec. Dist CCA 91.3/16.7 cm/sec. Dist CCA 115.5/16.7 cm/sec. Prox ICA 152.1/20.4 cm/sec. Prox ICA 117.7/18.9 cm/sec. Mid ICA 133.9/17.0 cm/sec. Mid ICA 104.5/18.9 cm/sec. Dist ICA 91.0/17.3 cm/sec. Dist ICA 106.7/27.7 cm/sec. Rt. ICA/CCA = 1.2. Lt. ICA/CCA = 1.0. Prox ECA 417.7/13.9 cm/sec. Prox ECA 168.2/3.5 cm/sec. Rt. Vert. 43.3/6.6 cm/sec. Lt. Vert. 46.9/6.2 cm/sec. Right Extracranial There is heterogeneous, irregular atherosclerotic plaque noted in the right common carotid artery. There is heterogeneous, irregular atherosclerotic plaque noted in the right internal carotid artery. There is heterogeneous, irregular atherosclerotic plaque noted in the right external carotid artery. Antegrade flow is noted in the right vertebral artery. Left Extracranial There is heterogeneous, irregular atherosclerotic plaque noted in the left common carotid artery. There is heterogeneous, irregular atherosclerotic plaque noted in the left internal carotid artery. There is heterogeneous, irregular atherosclerotic plaque noted in the left external carotid artery. Antegrade flow is noted in the left vertebral artery. Procedure Carotid Duplex 16597. This is a Carotid Duplex examination using B-mode, color flow and specral Doppler. The exam was diagnostic. The study was technically difficult due to patient heavy breathing. Exam performed in department. VL/Carotid Duplex Ultrasound Interpretation Summary Moderate (50-69%) stenosis right extracranial internal carotid. Mild (<50%) stenosis left extracranial internal carotid. Patent and antegrade vertebrals bilaterally. Ordering Physician: Mellissa Zarate Referring Physician: Karine Chang Performed By: Rd Resendez RVT
== END | disposition home or self-care (01) ==
LOC: PSN 07:52
PROVIDERS: PCP Family Medicine; Visit Provider Internal Medicine Cardiovascular Disease
DX: I65.23 Occlusion and stenosis of bilateral carotid arteries (principal); I48.0 Paroxysmal atrial fibrillation; R00.2 Palpitations; R42 Dizziness and giddiness
CPT/HCPCS: 93225; 93226; 93880

== ENCOUNTER 2023-05-02 18:56 | Emergency (ER) | payer MEDICARE, SELFPAY ==
[2023-05-02 19:00] VITALS: BP 224/69; PULSE 84; RESP 16; TEMP 36.6; O2SAT 97; BMI 36.6
--- NOTE | 2023-05-02 19:17 | EX.ED.DYSGE1 ---
HPI History of Present Illness Chief Complaint: Dizziness Detail of Chief Complaint: Palpitations, head feels woozy and high blood pressure Informant: patient and spouse/S.O. Onset/Context/Timing Onset: Yesterday Context: Sudden Onset Timing: Continuous and Waxes and wanes Quality: Systolic greater than 200 Location: Cardiovascular Current Severity: Moderate Maximum Severity: Moderate Worsened by: Nothing Relieved by: Nothing Associated Symptoms Associated Symptoms: Head feeling woozy and palpitations Narrative Narrative: Patient is 77-year-old woman with history of hypertension, type 2 diabetes, hypercholesterolemia who reports compliance with her medication but not her diet. Blood pressure was elevated yesterday. Significantly elevated today. She complains of her head being woozy. She denies headache. She also reports bilateral fuzzy vision. She attributes this to cataracts based on her most recent ophthalmologic exam. She does have trouble driving at night. She denies visual field cut or blindness in either eye. She denies double vision. She does complain of tightness in her neck for weeks if not longer. She denies paresthesia, anesthesia or motor weakness. She denies trouble with balance or coordination. She denies problems with speech or swallowing. She denies shortness of breath, dyspnea on exertion, PND or orthopnea. She denies chest pain, back pain or abdominal pain. Patient has history of stroke. 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 This occurred after heart surgery at the [facility]. Prior similar symptoms: No Recent Illness/Hospitalization: No [facility] Medical History (Updated 05/02/23 @ 22:[address] Darnell Grover MD) Abnormal electrocardiogram [ECG] [EKG] Atherosclerosis of creek coronary artery of creek heart without angina pectoris Cardiac murmur Cerebral infarction Encounter for long-term current use of high risk medication Essential (primary) hypertension Fatigue GERD (gastroesophageal reflux disease) Heparin-induced thrombocytopenia group home use of drug Palpitations Paroxysmal atrial fibrillation Pure hypercholesterolemia Secondary pulmonary arterial hypertension Shortness of breath Home Medications atorvastatin 40 mg tablet 40 mg PO QHS 11/04/16 [History Last Taken Unknown] metformin 500 mg 24 hr tablet,extended release 500 mg PO DAILY 03/26/19 [History Last Taken Unknown] lisinopril 20 mg-hydrochlorothiazide 25 mg tablet 2 tab PO DAILY 09/26/19 [History Last Taken Unknown] metoprolol succinate 100 mg tablet,extended release 24 hr 100 mg PO DAILY 10/21/21 [History Last Taken Unknown] aspirin 81 mg tablet,delayed release 81 mg PO DAILY 09/22/22 [History Last Taken Unknown] vitamin B comp and C no.3 15 mg-10 mg-50 mg-5 mg-300 mg capsule (B Complex Plus Vitamin C) 1 cap PO DAILY 11/02/22 [History Last Taken Unknown] amlodipine 10 mg tablet 10 mg PO DAILY #90 tabs 11/11/22 [Rx Last Taken Unknown] Allergy/AdvReac Type Severity Reaction Status Date / Time heparin Allergy Other Verified 05/02/23 19:00 Family History Father CAD (coronary artery disease) CVA (cerebral vascular accident) Mother Diabetes Brother ablation for SVT x2 Surgical History H/O coronary artery bypass surgery (~08/23/16) History of hysterectomy Social History (Updated 05/02/23 @ 19:[address] Darnell Grover MD) household members: spouse Smoking Status: Never smoker alcohol intake: never substance use type: does not use caffeine: Yes Type: coffee Number of servings: 1 what type of physical activity do you participate in: none ROS ROS ED Constitutional Constitutional ED: Denies chills, fever(s), subjective, sweats or weight loss Eyes Eyes: Reports blurry vision bilateral; Denies change in vision or diplopia ENT ENT ED: Denies ear pain, rhinorrhea or sore throat Cardiovascular Cardiovascular: Denies chest pain, orthopnea, palpitations, paroxysmal nocturnal dyspnea or racing heartbeat Respiratory/Chest Respiratory/Chest: Denies cough, dyspnea, dyspnea on exertion, orthopnea or paroxysmal nocturnal dyspnea Gastrointestinal Gastrointestinal: Reports nausea; Denies abdominal pain, diarrhea or vomiting Genitourinary Genitourinary ED: Denies dysuria, hematuria or urinary frequency Musculoskeletal Musculoskeletal: Denies arthralgias, back pain, myalgias or neck pain Integumentary Denies abscess, Abrasions or rash Neurologic Neurologic: Denies headache(s), paresthesias or weakness Psychiatric Psychiatric: Denies anxiety or depression Endocrine Endocrinology: Denies cold intolerance or heat intolerance Hematologic/Lymphatic Hematologic/Lymphatic: Denies systems reviewed and no addt'l complaints, except as documented EXAM Physical Exam Const Vital Signs: 05/02/23 19:00 05/02/23 19:13 05/02/23 19:23 Temperature 98 F Temperature Source Temporal Pulse Rate 84 Respiratory Rate 16 Respiratory Pattern Normal Blood Pressure 224/69 H 200/61 H Blood Pressure Mean 120 107 Pulse Ox 97 Oxygen Delivery Method Room Air 05/02/23 19:32 05/02/23 19:57 05/02/23 20:17 Temperature Temperature Source Pulse Rate 80 77 Respiratory Rate 16 16 Respiratory Pattern Blood Pressure 173/69 H 171/47 H 137/79 H Blood Pressure Mean 103 88 98 Pulse Ox 98 98 Oxygen Delivery Method Room Air Room Air 05/02/23 21:16 Temperature Temperature Source Pulse Rate 79 Respiratory Rate 16 Respiratory Pattern Blood Pressure 197/54 H Blood Pressure Mean 101 Pulse Ox 98 Oxygen Delivery Method Room Air Positive well nourished and well developed General Appearance ED: well developed and NAD; Negative for cyanotic, diaphoretic or pallor HEENT Reports moist mucous membranes HEENT Narrative: Head is atraumatic normocephalic. Ears normal. Nares patent. Uvula midline. No deviation with protrusion. Eyes PERRL and EOMs intact bilaterally Eyes Narrative: There is no nystagmus. Difficulty seeing fundi due to cataracts and miosis. There is no visual field cut. General Eye ED: Negative for pale conjunctiva or scleral icterus Neck no lymphadenopathy, supple and no JVD Chest Wall inspection of chest normal and palpation of chest normal Resp normal respiratory effort and clear to auscultation bilaterally Cardio regular rate, regular rhythm, S1 normal heart sound, S2 normal heart sound and no murmurs GI normal to inspection, nondistended, normoactive bowel sounds, non-tender, non-distended and no masses; Negative for hepatosplenomegaly Back/Spine no CVA tenderness Extremity Negative for normal to inspection Extremity Narrative: Bruise dorsum of the right foot due to blunt trauma. She states last week she dropped her cell phone and struck the top of her foot. Psych mental status grossly normal Skin no rashes or lesions noted and no wounds General Skin Exam: Negative for jaundice or pallor MDM MDM MDM Narrative Medical decision making narrative: Patient presents because of elevated blood pressure. We will obtain EKG looking for evidence of LVH and ischemia. Since her neuro exam is normal and she denies headache CT of the head was not obtained. BMP was obtained to assess renal function and electrolytes as especially since she is on a thiazide diuretic. Also to assess glucose and she has type 2 diabetes. Nurse was instructed to inform you of her next blood pressure reading to determine if parenteral meds are needed to lower her blood pressure. 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 This occurred due to heparinization after open heart surgery and when she came in with stroke symptoms she received heparin again. History & Record Review Additional record(s) reviewed:: Prior inpatient record, Prior outpatient record and Prior labs Lab Data Attestation: I reviewed the patient's lab results. Lab results narrative: CBC is workable. BMP is normal. Urine is normal. Labs: Laboratory Results - last 24 hr 05/02/23 05/02/23 19:16 20:20 WBC 7.1 RBC 4.24 Hgb 13.3 Hct 39.7 MCV 93.6 MCH 31.4 MCHC 33.5 RDW Std Deviation 45.1 H RDW Coeff of Amber 13.2 Plt Count 223 MPV 10.1 Immature Gran % (Auto) 0.600 Neut % (Auto) 75.6 H Lymph % (Auto) 12.6 L [place] % (Auto) 9.0 Eos % (Auto) 1.8 Baso % (Auto) 0.4 Absolute Neuts (auto) 5.4 Absolute Lymphs (auto) 0.89 Nucleated RBC % 0 Sodium 139 Potassium 3.9 Chloride 105 Carbon Dioxide 28.0 Anion Gap 6 BUN 19 H Creatinine 1.00 Estim Creat Clear Calc 38.35 Est GFR (MDRD) Af Amer 69 Est GFR (MDRD) Non-Af 57 L BUN/Creatinine Ratio 19.0 Glucose 142 H Calcium 9.1 Urine Color Yellow Urine Clarity Clear Urine pH 7.0 Ur Specific [place] 1.010 Urine Protein Negative Urine Glucose (UA) Normal Urine Ketones Negative Urine Occult Blood Negative Urine Nitrite Negative Urine Bilirubin Negative Urine Urobilinogen Normal Ur Leukocyte Esterase Negative Urine RBC 0 SEEN Urine WBC 0 SEEN Ur Squamous Epith Cells 0 SEEN Urine Bacteria 0 SEEN Urine Mucus 0 SEEN Treatment and Re-Evaluation :: She has had elevated blood pressure readings however there is no evidence of endorgan dysfunction and she has no symptoms. She received an additional dose of lisinopril. She was discharged to home to follow-up with her doctor for repeat blood pressure check in a couple of days. Patient has accelerated asymptomatic hypertension with no evidence of endorgan dysfunction. Discharge Plan Triage Chief Complaint: Dizziness Other Complaint: Hypertension Weakness ED Provider: Darnell Grovre Dx/Rx/DC Orders Clinical Impression: Accelerated essential hypertension, Cerebral infarction, Atherosclerosis of creek coronary artery of creek heart without angina pectoris, Pure hypercholesterolemia Instructions: ED Hypertension, Established Prescriptions: No Action metoprolol succinate 100 mg tablet extended release 24 hr 100 mg PO DAILY B Complex Plus Vitamin C [id number] mg capsule 1 cap PO DAILY Rx Instructions: give with food (meal/snack) aspirin 81 mg tablet,delayed release (DR/EC) 81 mg PO DAILY lisinopril-hydrochlorothiazide 20-25 mg tablet 2 tab PO DAILY Patient Comments: BLOOD PRESSURE, HEART atorvastatin 40 MG tablet 40 mg PO QHS metformin 500 mg tablet,ER leon.retention 24 hr 500 mg PO DAILY amlodipine 10 mg tablet 10 mg PO DAILY Qty: 90 3RF Primary Care Provider: Karine Berg Referrals: Karine Berg MD [Primary Care Provider] - 5-7 Days Disposition Disposition: Home, Self Care
[2023-05-02 19:23] VITALS: BP 200/61
[2023-05-02 19:30] LABS: Absolute Lymphocyte Count 0.89 X10^3/uL (0.83-4.51); Absolute Neutrophil Count 5.4 X10^3/uL (2.0-7.7); Basophil# 0.03 X10^3/uL; Basophil% 0.4 % (0-1); Eosinophil# 0.13 X10^3/uL; Eosinophils% 1.8 % (0-5); Hematocrit 39.7 % (37-47); Hemoglobin 13.3 g/dL (12.0-15.0); Lymphocyte # 0.89 X10^3/ul (0.83-4.51); Lymphocyte % 12.6 % (19-41); Mean Corp Hgb Conc 33.5 g/dL (32-36); Mean Corpuscular Hgb 31.4 pg (27.0-32.0); Mean Corpuscular Volume 93.6 fL (81-99); Mean Platelet Vol. 10.1 fl (6.2-12.0); Monocyte# 0.64 X10^3/uL; NRBC Flagged by Analyzer 0 % (0-5); Neutrophil # 5.36 X10^3/uL (2.7-7.7); Neutrophil % 75.6 % (47-70); Platelet Count 223 K/mm3 (150-450); RBC Distribution Width CV 13.2 % (11.6-14.6); RBC Distribution Width SD 45.1 fl (35.1-43.9); Red Blood Count 4.24 M/mm3 (4.2-5.4); White Blood Count 7.1 K/mm3 (4.4-11.0)
[2023-05-02 19:32] VITALS: BP 173/69
[2023-05-02 19:54] LABS: Anion Gap 6 (5-15); BUN 19 mg/dL (7-18); Calcium,Total 9.1 mg/dL (8.5-10.1); Chloride 105 mmol/L (98-107); EST Glomerular Filtration Rate 57 mL/min (>60); Est Glom Filt Rate - Afr Amer 69 mL/min (>60); Estimated Creatinine Clearance 38.35 ml/min; Glucose 142 mg/dL (74-106); Potassium 3.9 mmol/L (3.5-5.1); Sodium Level 139 mmol/L (136-145)
[2023-05-02 19:57] VITALS: BP 171/47; PULSE 80; RESP 16; O2SAT 98
[2023-05-02 20:17] VITALS: BP 137/79; PULSE 77; RESP 16; O2SAT 98
[2023-05-02 20:27] LABS: Bacteria 0 SEEN /hpf (None Seen); Mucous, Urine 0 SEEN /hpf (<or=2+); Red Blood Cells-Urine 0 SEEN /hpf (0-5); Squamous Epithelial Cells - UA 0 SEEN /hpf (5-10); White Blood Cells 0 SEEN /hpf (0-5)
[2023-05-02 20:28] LABS: Color, Urine Yellow (Yellow); Glucose, Dipstick Normal (Normal); Ketone-Dipstick Negative (Negative); Leukocyte Esterase-Dipstick Negative /ul (Negative); Nitrite-Dipstick Negative (Negative); Occult Blood-Urine Negative /ul (Negative); Protein-Dipstick Negative (Negative); Urine Bilirubin Dipstick Negative (Negative); Urine Clarity Clear (Clear); Urine Urobilinogen Normal (Normal)
[2023-05-02 21:16] VITALS: BP 197/54; PULSE 79; RESP 16; O2SAT 98
[2023-05-02] MEDS: Lisinopril 20 MG Tablet PO (22:35)
== END 2023-05-02 22:44 | disposition home or self-care (01) ==
PROVIDERS: Emergency Provider Emergency Medicine; PCP Family Medicine; Referring Provider Family Medicine; Visit Provider Emergency Medicine
DX: I10 Essential (primary) hypertension (principal); I27.20 Pulmonary hypertension, unspecified; I48.0 Paroxysmal atrial fibrillation; E11.9 Type 2 diabetes mellitus without complications; E78.00 Pure hypercholesterolemia, unspecified; I25.10 Atherosclerotic heart disease of native coronary artery without angina pectoris; R00.2 Palpitations; Z79.82 Long term (current) use of aspirin; Z79.84 Long term (current) use of oral hypoglycemic drugs; Z79.899 Other long term (current) drug therapy; Z86.73 Personal history of transient ischemic attack (TIA), and cerebral infarction without residual deficits; Z95.1 Presence of aortocoronary bypass graft
CPT/HCPCS: 80048; 81001; 85025; 93005; 99284; A4216

== ENCOUNTER → 2023-05-23 | Outpatient (CLI) | payer MEDICARE, SELFPAY ==
--- NOTE | 2023-05-23 11:07 | RAD_ITS ---
INDICATION: pain EXAMINATION/TECHNIQUE: X-RAY - XR Spine Thoracic 3 Views COMPARISON: No prior examinations are available for comparison. FINDINGS: VERTEBRAE: Preserved vertebral body height. No fracture. No spondylolisthesis. Mild increased kyphosis of the thoracic spine. No substantial scoliosis. Endplate spondylosis and degenerative osteophytes at multiple levels. DISCS: Disc spaces are maintained. INCLUDED CHEST/ABDOMEN: Status post median sternotomy. RAD/Thoracic Spine 3 Views IMPRESSION: Degenerative changes of the thoracic spine. Electronically Signed: Demetrio Carey MD at 11:25 EDT ,
[2023-05-23 12:43] LABS: AST(SGOT) 21 U/L (15-37); Cholesterol 131 mg/dL (200); High Density Lipoprotein 51 mg/dL; Triglycerides 250 mg/dL; Very Low Density Lipoprotein 50 mg/dL (5-40)
== END | disposition home or self-care (01) ==
PROVIDERS: PCP Family Medicine; Referring Provider Family Medicine; Visit Provider Family Medicine
DX: E11.69 Type 2 diabetes mellitus with other specified complication (principal); M54.9 Dorsalgia, unspecified
CPT/HCPCS: 36415; 72072; 80061; 84450

== ENCOUNTER 2023-06-27 09:30 | Outpatient (RCR) | payer MEDICARE, SELFPAY ==
--- NOTE | 2023-05-24 11:19 | HP.PTEVAL ---
Patient's Visit Information Visit Information Visit Information: VICTOR M SALAS is a 77 year old F referred to Physical Therapy by Dr. Karine Berg MD with a diagnosis of THORACIC PAIN. Date of Evaluation: 05/24/23 Physical Therapist: Radha Claudio PT, Cert MDT Visit Plan Frequency: 2x /Week Duration: 4-6 Weeks Plan: *CHECK AUTH NEXT VISIT: RECORD # OF VISITS APPROVED AND EXPIRATION DATE. CHECK CODES APPROVED WITH POC* US X 6-8 VISITS (DOUBLE CHECK CONTRAINDICATIONS). POSTURE CORRECTION/STRENGTHENING, INSTRUCTION IN APPROPRIATE BODY MECHANICS AND ACTIVITY MODIFICATIONS. MAGED UE ROM, STRETCHING AND STRENGTHENING. HEP INSTRUCTION. 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 Present symptoms: NECK AND UPPER BACK PAIN. PATIENT DENIES MAGED UE SX'S. Present since: 2-3 MONTHS Pain Scale: Worst - 4/10 Least - 0/10 Currently: 4/10 Commenced as a result of: NO APPARENT REASON OTHER THAN POSSIBLY RANKING ON DOORS BETWEEN DINING ROOM AND PORCH. Symptoms at onset: SAME Worse: RANDOM Better: MASSAGE GUN, COOLING CREAM Disturbed sleep: NO Previous history/Previous treatment: FALL 1991 OUT OF BATHTUB AND HIT HEAD AND 3 LITTLE BONES BROKE IN NECK. NO NECK SURGERY. NO NECK INJECTIONS. CHIROPRACTIC OFF AND ON FOR A FEW YEARS This episode: CHIROPRACTIC Dizziness: CHRONIC Tinnitis: NO Nausea: NO Shortness of Breath: NO Difficulty Swollowing: NO Gait: MY WALKING IS GETTING A LITTLE WORSE SINCE THIS STARTED. PATIENT REPORTS SHE HAS HAD BALANCE PROBLEMS FOR 7 YEARS AGO SINCE STROKE AND HAS PROGRESSIVELY GOT WORSE. MORE BALANCE PROBLEMS SINCE SHE TOOK UP HER FLOOR ABOUT A YEAR AGO AND HURT HER LOW BACK. THAT IS WHEN SHE STARTED USING HER CANE. Unexplained weight loss: NO Imaging: PATIENT DENIES ANY RECENT NECK X-RAYS. THORACIC X-RAYS YESTERDAY ORDERED BY DR. BERG - PATIENT HAS NOT REC'D RESULTS. NO RESULTS IN [facility] EMR YET EITHER. H/O LBP AND PMH FROM [facility] EMR: Abnormal electrocardiogram [ECG] [EKG] Atherosclerosis of [place] coronary artery of [place] heart without angina pectoris Cardiac murmur Cerebral infarction Encounter for long-term current use of high risk medication Essential (primary) hypertension Fatigue GERD (gastroesophageal reflux disease) Heparin-induced thrombocytopenia senior living use of drug Palpitations Paroxysmal atrial fibrillation Pure hypercholesterolemia Secondary pulmonary arterial hypertension Shortness of breath H/O coronary artery bypass surgery ~08/23/16 History of hysterectomy Objective Objective: Sitting Posture/Standing Posture: POOR. RH. RSH'S. NO TORTICOLLIS. INCREASED KYPHOSIS Active Correction of posture: BETTER. PATIENT REPORTED IMMEDIATE DECREASE IN PAIN WITH USE OF LUMBAR SUPPORT IN SITTING. Other Observations: THIS PATIENT REPORTS DRIVING HERSELF TO PT TODAY AND AMBULATED INDEP'LY INTO PT TODAY BUT LOB NOTED. PATIENT WAS BROUGHT TO TREATMENT ROOM IN A W/C AND CANE ADJUSTED TO PROPER HEIGHT WHICH PATIENT REPORTED BEING HELPFUL. SHE IS ABLE TO TRANSFER INDEP'LY FROM SIT TO STAND WITH UE ASSIST. SHE WAS OBSERVED WALKING ABOUT 30 FEET BACK TO CAR WITHOUT LOB AND WITH USE OF CANE. Sensory deficit: MAGED UE LIGHT TOUCH SENSATION GROSSLY INTACT AND SYMMETRICAL ROM deficit: MAGED UE'S WFL Motor deficit: MAGED UE STRENGTH GROSSLY 5/5 WITH MMT'ING EXCEPT R SHLD 4-/5 AND LEFT 4/5. Dural Signs: NEGATIVE MAGED UE'S. Cervical Mvmt Loss: Flex: NIL Pro: NIL Ext: MOD TO CONSUELO Ret: CONSUELO RSB: MOD LSB: CONSUELO R Rot: MIN L Rot: MIN PATIENT C/O INCREASED MAGED NECK PAIN R > L WITH CERVICAL ROM TESTING ALL PLANES ESPECIALLY L SB. L CERVICAL SB TESTING PROVOKES R UPPER BACK PAIN AND PATIENT REPORTS THAT IS THE SAME PAIN SHE IS HERE FOR TODAY. Postural strength: POOR Palpation: PATIENT WITH TENDERNESS THROUGHOUT UPPER THORACIC SPINE AND LOWER CERVICAL SPINE WITH LIGHT PALPATION. ALSO TENDER MAGED PARASPINALS AND UPPER TRAPS IN CERVICAL AND UPPER THORACIC REGIONS R > LEFT. TREATMENT: NEUROMUSCULAR REEDUCATION - RETRAINING OF MVMT AND POSTURE FOR SITTING, LYING AND STANDING ACTIVITIES. INSTRUCTED PATIENT TO SUPPORT ELBOWS WITH ACTIVITIES LIKE HOLDING THE BABY AND CROCHETING. ALSO TAKE FREQUENT BREAKS FROM SITTING AND LIE DOWN NEEDED TO HELP DECREASE PAIN. PATIENT COMMUNICATED A GOOD UNDERSTANDING OF THESE INSTRUCTIONS AFTER GIVEN. Balance/Special Test Scores Oswestry Neck Score: 16 Goals Goal 1:: DECREASE C/O NECK AND UPPER BACK PAIN Goal Time Frame: 4-6 Weeks Goal 2:: IMPROVE PERSONAL CARE, LIFTING, READING, SLEEP, WORK, DRIVING AND RECREATIONAL FUNCTION Goal Time Frame: 4-6 Weeks Goal 3:: INSTRUCT IN PROPHYLAXIS Goal Time Frame: 4-6 Weeks Anticipated Interventions Patient/Client Instruction: Educate patient on: Condition, Plan of Care and Risk Factors For the Purpose of:: To improve self management Therapeutic Exercise to Include: Strength training, Body mechanics, Postural training, Flexibilty training, Neuromotor development and Scapular Strength/Stabilization For the Purpose of:: To decrease pain, To increase ROM, To improve muscle performance and motor function, To increase tolerance to activity/condition/position and To improve ability of physical actions for home/community/work/leisure Cryotherapy (ice pack, ice massage): Yes Thermo therapy (hot pack): Yes Ultrasound (thermal/non thermal): Yes For the Purpose of:: To improve nutrient delivery to tissue Text: Thank you for the opportunity to evaluate your patient. For Medicare and Medicare HMO plans, please review the plan of care and approve it. It will need to be FAXED BACK to us at [phone] for Medicare purposes. For Medicare only, by signing this I certify the plan of care. Please let me know if there are questions or concerns regarding this plan of care. Physician Signature: Date:
--- NOTE | 2023-06-27 10:06 | HP.PTDCSUM_ITS ---
Discharge Summary D/C summary: It has been my pleasure to treat VICTOR M SALAS referred by Dr. Karine Berg MD, with the diagnosis of THORACIC PAIN for a total of 10 visit(s). Discharge Date: 06/27/23 Please see the following information for a summary of their discharge status. Subjective Subjective: I CAN TURN MY HEAD BETTER AND THE CATCH BACK THERE THAT I CAME HERE FOR IS ONLY OCCASSIONAL NOW (PATIENT POINTING TO UPPER BACK/LOWER NECK REGION). PATIENT REPORTS SHE CAN TURN HER HEAD BETTER FOR DRIVING. PATIENT REPORTS COMPLIANCE WITH HOME EX PROGRAM AND THAT THE EX[employer]S HELP LOOSEN HER UP. PATIENT REPORTS SHE IS GOING TO WORK AT THE [employer] AT HOME AND KEEP AT IT AND SHE DOES NOT FEEL SHE NEEDS MORE THERAPY AT THIS TIME. PATIENT REPORTS INTERMITTENT HEADACHES THAT SHE RELATES TO HER EYES MOSTLY AND SHE STATES SHE IS PLANNING TO MAKE AN RUKHSANA'T TO GET HER CATERACTS REMOVED BECAUSE IT IS A STRAIN TO SEE. Pain Right Back: Pain Intensity (Out of 10): 2 Overall Improvement % Improvement: 50 Objective Objective/Function: PATIENT WAS SEEN TODAY FOR RE-ASSESSMENT OF PROGRESS TOWARD THE SET PT GOALS AND THE NEED FOR FURTHER PHYSICAL THERAPY VS READINESS FOR DISCHARGE. 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 Dural Signs: NEGATIVE MAGED UE'S. Cervical Mvmt Loss: Flex: NIL Pro: NIL Ext: MOD Ret: CONSUELO RSB: MIN LSB: MOD R Rot: MIN L Rot: NIL PATIENT C/O INCREASED R NECK PAIN WITH R SB TESTING BUT DOES NOT REMAIN WORSE A RESULT. PATIENT DENIES INCREASED NECK PAIN WITH ROM TESTING ALL OTHER PLANES TODAY. Postural strength: POOR Palpation: PATIENT WITH TENDERNESS OF C67T1 REGION BUT OTHERWISE DENIES UPPER THORACIC AND CERVICAL TENDERNESS TODAY. MAGED CERVICAL TIGHTNESS R>L. Goals Goal 1:: DECREASE C/O NECK AND UPPER BACK PAIN Goal Progress: Goal Met Goal 2:: IMPROVE PERSONAL CARE, LIFTING, READING, SLEEP, WORK, DRIVING AND RECREATIONAL FUNCTION Goal Progress: Progressing Goal 3:: INSTRUCT IN PROPHYLAXIS Goal Progress: Goal Met Plan Plan: D/C D/C Information d/c sentence: If there are questions or concerns regarding this patient's physical therapy, please feel free to call me at [phone]. Thank you for the referral of this patient. Sincerely, Radha Claudio, PT, Cert MDT Balance/Gait/Functional tests Balance/Special Test Scores Oswestry Neck Score: 16 Improvement % Improvement: 50
== END 2023-06-27 10:23 | disposition home or self-care (01) ==
LOC: PT 09:30
PROVIDERS: PCP Family Medicine; Referring Provider Family Medicine; Visit Provider Family Medicine
DX: M54.6 Pain in thoracic spine (principal)
CPT/HCPCS: 97035; 97110; 97112; 97140; 97162; 97164

== ENCOUNTER 2024-06-07 03:37 | Observation (INO) | payer MEDICARE, SELFPAY ==
[2024-06-07] VITALS (9 sets, daily range): BP systolic 127–198; BP diastolic 43–75; PULSE 61–81; RESP 14–18; TEMP 36.4–36.8; O2SAT 96–99; BMI 36.0; BMI 33.8
--- NOTE | 2024-06-07 03:54 | RAD_ITS ---
INDICATION: chest pain EXAMINATION/TECHNIQUE: X-RAY - XR Chest 1 View AP portable. 4:15 AM COMPARISON: 09/18/2022 FINDINGS: LINES/DEVICES: None. LUNGS: No consolidation. No pneumothorax. MEDIASTINUM: Aorta is atherosclerotic. CARDIAC SILHOUETTE: Not enlarged. Sternal wires. BONES AND SOFT TISSUES: No acute abnormalities. RAD/Chest 1 View (Portable) IMPRESSION: No evidence of active intrathoracic disease. Electronically Signed: Malena Verde MD at 4:28 EDT ,
--- NOTE | 2024-06-07 03:54 | CT_ITS ---
EXAM: CT HEAD WITHOUT INTRAVENOUS CONTRAST CLINICAL INDICATION: hypertensive encephalopathy TECHNIQUE: Multiple axial images were obtained of the head without intravenous contrast. This CT exam was performed using one or more of the following dose reduction techniques: automated exposure control, adjustment of the mA and/or kV according to patient size, and/or use of iterative reconstruction technique. RADIATION DOSE: CTDIvol = 44.99 mGy, DLP = 796.11 mGy-cm COMPARISON: Head CT 01/18/2015 FINDINGS: BRAIN AND EXTRA-AXIAL SPACES: Diffuse cerebral volume loss. Periventricular small vessel ischemic changes. No intra- or extra-axial hemorrhage. No intracranial mass or mass effect. Posterior fossa structures are unremarkable. No hydrocephalus. Basal cisterns are patent. BONES/JOINTS: Unremarkable. No discrete lytic or blastic abnormalities. VASCULATURE: Vascular calcifications. SINUSES: Unremarkable as visualized. Clear. MASTOID AIR CELLS: Unremarkable. Clear. ORBITS: Visualized globes, extraocular muscles, optic nerves and retrobulbar fat appear unremarkable. CT/Brain/Head without Contrast IMPRESSION: 1. No acute intracranial abnormalities. Follow up with additional imaging if clinically indicated. 2. Age-related changes. Electronically Signed: Pankaj Stallings MD at 5:09 EDT ,
--- NOTE | 2024-06-07 03:55 | EKG12_ITS ---
Test Reason : Blood Pressure : / mmHG Vent. Rate : 061 BPM Atrial Rate : 061 BPM P-R Int : 180 ms QRS Dur : 086 ms QT Int : 436 ms P-R-T Axes : 046 020 060 degrees QTc Int : 438 ms Sinus rhythm with Premature supraventricular complexes Otherwise normal ECG Confirmed by SAYRA HDZ, BETITO ([id number]), design editor QUINCY CANALES ([id number]) on 06/08/2024 6:51:34 AM Referred By: Confirmed By:MARIA EUGENIA COLBERT MD
[2024-06-07 04:12] LABS: Absolute Lymphocyte Count 1.45 X10^3/uL (0.83-4.51); Absolute Neutrophil Count 5.1 X10^3/uL (2.0-7.7); Basophil# 0.05 X10^3/uL; Basophil% 0.7 % (0-1); Eosinophil# 0.23 X10^3/uL; Eosinophils% 3.1 % (0-5); Hematocrit 42.2 % (37-47); Hemoglobin 14.2 g/dL (12.0-15.0); Lymphocyte # 1.45 X10^3/ul (0.83-4.51); Lymphocyte % 19.3 % (19-41); Mean Corp Hgb Conc 33.6 g/dL (32-36); Mean Corpuscular Hgb 31.1 pg (27.0-32.0); Mean Corpuscular Volume 92.5 fL (81-99); Mean Platelet Vol. 10.5 fl (6.2-12.0); Monocyte# 0.72 X10^3/uL; Monocyte% 9.6 % (0-10); NRBC Flagged by Analyzer 0 % (0-5); Neutrophil # 5.05 X10^3/uL (2.7-7.7); Platelet Count 220 K/mm3 (150-450); RBC Distribution Width CV 13.2 % (11.6-14.6); RBC Distribution Width SD 44.3 fl (35.1-43.9); Red Blood Count 4.56 M/mm3 (4.2-5.4); White Blood Count 7.5 K/mm3 (4.4-11.0)
[2024-06-07] MEDS: hydrALAZINE 20 MG/ML Vial 10 MG IV (04:12)
--- NOTE | 2024-06-07 04:25 | EX.ED.DYSGE1 ---
HPI History of Present Illness Chief Complaint: Hypertension Narrative Narrative: 78-year-old female past medical history of hypertension, on multiple medications, presents with exacerbation of her high blood pressure that she has been having over the last week. She states that she has been taking supplementations of magnesium which will lower her blood pressure. Yesterday evening she noticed that her blood pressure was elevated over 200 systolic. She took half a dose of her lisinopril, and took magnesium supplementations which lowered her blood pressure to the 140s. She states she also takes amlodipine which causes her leg swelling, and she is on metoprolol as well which she takes once a day. She takes lisinopril 20 mg twice daily. She recently switched to a new primary care physician 4 weeks ago. After she went to bed, she awoke with a fast, pounding heart rate. She really did not have chest pain but she had a very slight headache. No nausea or vomiting, no shortness of breath. She tried to take her blood pressure, but states that it was too high to register on her home machine. She presents because of her uncontrolled blood pressure. [facility] Medical History Heparin-induced thrombocytopenia Paroxysmal atrial fibrillation Pure hypercholesterolemia Essential (primary) hypertension Atherosclerosis of [place] coronary artery of [place] heart without angina pectoris Shortness of breath Fatigue Palpitations Cardiac murmur Abnormal electrocardiogram [ECG] [EKG] Encounter for long-term current use of high risk medication Cerebral infarction senior care use of drug Secondary pulmonary arterial hypertension GERD (gastroesophageal reflux disease) Home Medications ?Medication ?Instructions ?Recorded ?Last Taken ?Type atorvastatin 40 mg tablet 40 mg PO QHS 11/04/16 Unknown History lisinopril 20 2 tab PO DAILY 09/26/19 Unknown History mg-hydrochlorothiazide 25 mg tablet metoprolol succinate 100 mg 100 mg PO DAILY 10/21/21 Unknown History tablet,extended release 24 hr aspirin 81 mg tablet,delayed 81 mg PO DAILY 09/22/22 Unknown History release vitamin B comp and C no.3 15 mg-10 1 cap PO DAILY 11/02/22 Unknown History mg-50 mg-5 mg-300 mg capsule (B Complex Plus Vitamin C) Cardio [place] PO 12/20/23 Unknown History folic acid 800 mcg tablet 0.8 mg PO DAILY 12/20/23 Unknown History amlodipine 10 mg tablet 10 mg PO DAILY 06/07/24 Unknown History Allergy/AdvReac Type Severity Reaction Status Date / Time heparin Allergy Other Verified 06/07/24 03:39 metformin AdvReac Other Verified 06/07/24 03:39 Family History Father CAD (coronary artery disease) CVA (cerebral vascular accident) Mother Diabetes Brother ablation for SVT x2 Surgical History History of hysterectomy H/O coronary artery bypass surgery (~08/23/16) Social History household members: spouse Smoking Status: Never smoker alcohol intake: never substance use type: does not use caffeine: Yes Type: coffee Number of servings: 1 what type of physical activity do you participate in: none ROS ROS ED ROS Narrative Constitutional: No fever, no chills. Uncontrolled blood pressure. HEENT: No sore throat. No neck pain. No loss of vision. No rhinorrhea. Cardiovascular: No chest pain. Positive palpitations. No pedal edema. Respiratory: No cough, no shortness of breath. Abdominal: No abdominal pain. No nausea. No vomiting. Genitourinary: No dysuria. No hematuria. Musculoskeletal: No myalgias. No arthralgias. Neurologic: Mild headaches. No dizziness. No lightheadedness. Skin: No rash. No change in color. Psychiatric: No depression. No anxiety. EXAM Physical Exam Narrative Exam Narrative: Afebrile. Vital signs noted. HEENT: Normocephalic. Atraumatic. PERRL, EOMI. Neck soft and supple. No point tenderness or step off. Cardiovascular: Regular rate and rhythm. No murmurs, rubs, or gallops appreciated. Respiratory: No tachypnea. Lungs clear to auscultation bilaterally. Gastrointestinal: Abdomen soft, nontender, with normoactive bowel sounds. No rebound or guarding. Neurological: Awake. Alert. Nonfocal, nonlateralizing. Skin: No rash. Normal color. No pallor. Musculoskeletal: No pedal edema. Full range of motion extremities. Const Vital Signs: 06/07/24 03:38 06/07/24 03:45 06/07/24 04:15 Temperature 97.7 F L Temperature Source Temporal Pulse Rate 75 63 Respiratory Rate 16 18 Respiratory Effort Normal Non-Labored Respiratory Pattern Normal Blood Pressure 198/75 H 177/54 H Blood Pressure Mean 116 95 Pulse Ox 98 98 Oxygen Delivery Method Room Air Room Air 06/07/24 04:59 06/07/24 05:32 Temperature 97.7 F L Temperature Source Pulse Rate 81 71 Respiratory Rate 14 16 Respiratory Effort Respiratory Pattern Blood Pressure 177/52 H 182/67 H Blood Pressure Mean 93 105 Pulse Ox 99 99 Oxygen Delivery Method MDM MDM MDM Narrative Medical decision making narrative: Differential diagnosis includes but not limited to uncontrolled hypertension versus hypertensive urgency versus acute coronary syndrome versus hypertensive encephalopathy versus intracranial hemorrhage secondary to hypertension. Her blood pressure is 196 systolic here. Comprehensive workup was pursued. I do feel CT imaging of the brain is indicated given her headache albeit mild in her eyes. She was administered hydralazine 10 mg intravenously and she was placed on a teletypesetter monitor. EKG was obtained and interpreted by myself independently as normal sinus rhythm at 61 bpm with PACs but no acute ST changes. No STEMI. I reviewed her laboratory work and she has normal white count of 7.5 with hemoglobin normal at 14.2 and platelet count normal at 220. CMP is grossly unremarkable except for glucose 127 with a normal anion gap of 6. LFTs are grossly unremarkable. High-sensitivity troponin is normal at 11. I do not feel she needs serial enzymes, and she is not really having chest pain. Chest x-ray 1 view interpreted by myself independently shows no evidence of acute process, no pneumothorax, no pneumonia. I reviewed the radiology report which confirms my independent interpretation. After hydralazine 10 mg, resultant blood pressure is now in the 170s. I did order metoprolol 100 mg orally. However, I was approached by the RN who stated that the patient told her that she had intermittently been having chest pain and pressure on the right side of her chest. Currently she is pain-free. I reviewed the patient's prior records and she has history of coronary artery bypass that was performed at [place]. She states that she usually sees [facility], but has not had a stress test recently. Additionally, when I reviewed her prior records, she was seen in April for accelerated hypertension that was asymptomatic at that time. Now that she is having headaches, and now chest pain, I feel that she needs observation for possible stress testing and better control of her blood pressure as it is uncontrolled. I reviewed the radiology report of the CT of the brain and there is no acute intracranial hemorrhage. Patient will be discussed with Dr. Colindres for observation for her chest pain and uncontrolled hypertension. Disposition is assigned observation in stable condition. History & Record Review Discussion w/independent historian: Patient Additional record(s) reviewed:: Prior ED visit Lab Data Attestation: I reviewed the patient's lab results. Labs: Laboratory Results - last 24 hr 06/07/24 03:40 WBC 7.5 RBC 4.56 Hgb 14.2 Hct 42.2 MCV 92.5 MCH 31.1 MCHC 33.6 RDW Std Deviation 44.3 H RDW Coeff of [place] 13.2 Plt Count 220 MPV 10.5 Immature Gran % (Auto) 0.300 Neut % (Auto) 67.0 Lymph % (Auto) 19.3 [place] % (Auto) 9.6 Eos % (Auto) 3.1 Baso % (Auto) 0.7 Absolute Neuts (auto) 5.1 Absolute Lymphs (auto) 1.45 Nucleated RBC % 0 Sodium 137 Potassium 4.0 Chloride 106 Carbon Dioxide 25.0 Anion Gap 6 BUN 18 Creatinine 0.76 Estim Creat Clear Calc 61.54 Est GFR (MDRD) Af Amer 94 Est GFR (MDRD) Non-Af 78 BUN/Creatinine Ratio 23.6 H Glucose 127 H Calcium 9.4 Total Bilirubin 0.80 AST 29 ALT 29 Alkaline Phosphatase 78 Troponin I High Sens 11 Total Protein 6.8 Albumin 3.6 Globulin 3.2 Albumin/Globulin Ratio 1.1 Radiography Diagnostic Testing: Clinical Impression(s) from Imaging Studies Brain CT 06/07/24 03:54 IMPRESSION: 1. No acute intracranial abnormalities. Follow up with additional imaging if clinically indicated. 2. Age-related changes. Electronically Signed: Pankaj Stallings MD at 5:09 EDT , Chest X-Ray 06/07/24 03:54 IMPRESSION: No evidence of active intrathoracic disease. Electronically Signed: Malena Verde MD at 4:28 EDT , Discharge Plan Dx/Rx/DC Orders Clinical Impression: Chest pain, Uncontrolled hypertension Disposition Disposition: Acute Care [facility]
[2024-06-07 04:31] LABS: ALB/GLOB Ratio 1.1 RATIO (0.9-2.4); AST(SGOT) 29 U/L (15-37); Alanine Aminotransfer ALT/SGPT 29 U/L (13-56); Albumin, Serum 3.6 g/dL (3.2-5.0); Alkaline Phosphatase 78 U/L (45-117); Anion Gap 6 (5-15); BUN 18 mg/dL (7-18); BUN/Creat Ratio 23.6 RATIO (10-20); Calcium,Total 9.4 mg/dL (8.5-10.1); Chloride 106 mmol/L (98-107); Creatinine, Serum 0.76 mg/dL (0.55-1.02); EST Glomerular Filtration Rate 78 mL/min (>60); Est Glom Filt Rate - Afr Amer 94 mL/min (>60); Estimated Creatinine Clearance 61.54 ml/min; Globulin 3.2 g/dL (2.2-4.2); Glucose 127 mg/dL (74-106); Protein, Total 6.8 g/dL (6.4-8.2); Sodium Level 137 mmol/L (136-145); Troponin-I HS 11 pg/mL (3.0-54.0)
[2024-06-07] MEDS: Metoprolol(XL)Succ 100 MG Tablet PO (05:31)
--- NOTE | 2024-06-07 05:47 | ECHOCS_ITS ---
Reason For Study: Chest Pain Procedure This was a 2D Doppler, Color Flow transthoracic echocardiogram. Technically difficult due to patients body habitus. Contrast injection performed. Exam performed in department. Left Ventricle Normal LV size. The estimated ejection fraction is 75 %. Unable to assess diastolic dysfunction. No regional wall motion abnormalities noted. Right Ventricle Normal RV size. Normal systolic function. Atria The left atrium is mildly enlarged. Normal right atrium. No doppler evidence for ASD. Mitral Valve There is moderate to severe mitral annular calcification. There is no mitral valve stenosis. No mitral valve insufficiency. Tricuspid Valve There is no tricuspid stenosis. Trivial tricuspid valve insufficiency. Unable to estimate RV systolic pressure due to insufficient tricuspid regurgitant envelope. Aortic Valve Trisinus/trileaflet aortic valve. There is no aortic stenosis. No aortic valve insufficiency. Pulmonic Valve There is no pulmonic valvular stenosis. Trivial pulmonic valve insufficiency. Great Vessels Normal aortic root. Pericardium/Pleural No pericardial effusion. Medication Diluted definity 1.5ml given slow IV push to enhance endocardial definition. MMode/2D Measurements & Calculations LVIDd: 4.1 cm IVSd: 1.1 cm Ao root diam: 2.6 cm LVIDs: 2.5 cm LVPWd: 1.2 cm LA dimension: 3.9 cm FS: 38.6 % LAV(MOD-bp): 72.6 ml LA A4 area: 23.3 cm2 RA A4 area: 17.0 cm2 LAV(MOD-bp) Indexed: 37.3 ml/m2 LAV(MOD-sp2): 68.0 ml LAV(MOD-sp4): 66.5 ml TAPSE: 1.6 cm Time Measurements MV dec time: 0.33 sec Doppler Measurements & Calculations MV E max syd: 90.8 cm/sec Lat Peak E' Syd: 5.6 cm/sec Med Peak E' Syd: 4.5 cm/sec MV A max syd: 142.1 cm/sec E/E' lat: 16.3 E/E' med: 20.2 MV E/A: 0.64 MV V2 max: 168.3 cm/sec MV P1/2t max syd: 110.2 cm/sec Ao V2 max: 157.2 cm/sec MV max P.3 mmHg MV P1/2t: 117.1 msec Ao max P.9 mmHg MV V2 mean: 83.8 cm/sec MV dec slope: 275.7 cm/sec2 MV mean P.4 mmHg MVA(P1/2t): 1.9 cm2 MV V2 VTI: 41.9 cm LV V1 max: 115.6 cm/sec PA V2 max: 84.8 cm/sec TR max syd: 242.1 cm/sec LV V1 max P.3 mmHg PA max PG (full): 0.96 mmHg TR max P.4 mmHg ECHO/Echo Complete W/ Contrast Interpretation Summary The estimated ejection fraction is 75 %. Unable to assess diastolic dysfunction. The left atrium is mildly enlarged. Ordering Physician: Brandy Colindres Performed By: Aniket Hays RCS
--- NOTE | 2024-06-07 05:48 | PCM.HP.STD ---
HPI - General General Date of Admission: 06/07/24 Date of Service: 06/07/24 Chief Complaint: Chest Pain/Uncontrolled HTN HPI Narrative VICTOR M SALAS, is a 78 F who presented to the emergency department at [facility] on 06/07/2024 with a chief complaint of elevated blood pressure. She states over about the last 3 to 5 days her blood pressures have been elevated at home when she takes them. She has been taking her home medications including amlodipine, lisinopril/HCTZ/and metoprolol in addition to her supplements including magnesium which she feels lowered her blood pressure and significantly. Yesterday afternoon she was feeling a little bit off and took her blood pressure and noticed her systolic was in the 120s at which time she took a half dose extra of her lisinopril and her magnesium supplements which lowered her blood pressure to the 140s. She stated she was having issues and then went off of her metformin and had been feeling much better overall until the last week or so. She stated she went to bed as she was feeling better with a lower systolic blood pressure but then awoke with a fast pounding heart but did not check her heart rate. She denied any palpitations. And checked her blood pressure and noticed it was markedly elevated so she came to the emergency department. She was feeling fine otherwise prior to presentation but while she was in the emergency department developed a slight headache and complained of some right-sided chest pain that was pressure in nature. She complains of some concomitant shortness of breath associated with this but denies any nausea or diaphoresis. She does have previous CABG in 2016 but has not had any recent evaluation of her coronary arteries. She also has a history of heparin-induced thrombocytopenia. Vital signs on presentation showed temperature of 97.7, heart rate 75, respiratory rate was 16, blood pressure was 198/75 and pulse ox was 98% on room air. CBC is unremarkable. Chemistry panel is unremarkable other than hyperglycemia with a blood sugar of 127. LFTs are unremarkable. Troponin was 11. EKG was normal sinus rhythm with no ST-T wave changes concerning for acute ischemia and normal intervals. Chest x-ray showed no evidence of acute intrathoracic disease. CT of the brain was performed due to headache and shows age-related changes with no acute intracranial abnormalities. Initially the intent was to improve her blood pressure and get her home however she developed chest pain in the emergency department that was pressure-like and with her history there was concern that this could be coronary in nature. PENDING SALE TO [facility] Medical History Heparin-induced thrombocytopenia Paroxysmal atrial fibrillation Pure hypercholesterolemia Essential (primary) hypertension Atherosclerosis of [place] coronary artery of [place] heart without angina pectoris Shortness of breath Fatigue Palpitations Cardiac murmur Abnormal electrocardiogram [ECG] [EKG] Encounter for long-term current use of high risk medication Cerebral infarction retirement use of drug Secondary pulmonary arterial hypertension GERD (gastroesophageal reflux disease) Home Medications ?Medication ?Instructions ?Recorded ?Last Taken ?Type atorvastatin 40 mg tablet 40 mg PO QHS 11/04/16 Unknown History lisinopril 20 2 tab PO DAILY 09/26/19 Unknown History mg-hydrochlorothiazide 25 mg tablet metoprolol succinate 100 mg 100 mg PO DAILY 10/21/21 Unknown History tablet,extended release 24 hr aspirin 81 mg tablet,delayed 81 mg PO DAILY 09/22/22 Unknown History release vitamin B comp and C no.3 15 mg-10 1 cap PO DAILY 11/02/22 Unknown History mg-50 mg-5 mg-300 mg capsule (B Complex Plus Vitamin C) Cardio [place] PO 12/20/23 Unknown History folic acid 800 mcg tablet 0.8 mg PO DAILY 12/20/23 Unknown History amlodipine 10 mg tablet 10 mg PO DAILY 06/07/24 Unknown History Allergy/AdvReac Type Severity Reaction Status Date / Time heparin Allergy Other Verified 06/07/24 03:39 metformin AdvReac Other Verified 06/07/24 03:39 Family History Father CAD (coronary artery disease) CVA (cerebral vascular accident) Mother Diabetes Brother ablation for SVT x2 Surgical History History of hysterectomy H/O coronary artery bypass surgery (~08/23/16) Social History household members: spouse Smoking Status: Never smoker alcohol intake: never substance use type: does not use caffeine: Yes Type: coffee Number of servings: 1 what type of physical activity do you participate in: none ROS Constitutional Constitutional: Reports fatigue; Denies anorexia, change in weight, chills, fever(s), malaise, night sweats, weakness or other Eyes Eyes: Denies blurry vision, change in eye color, change in vision, discharge from eye(s), double vision, erythema, eye pain, loss of vision or other ENT HEENT: Denies abnormal hearing, dysphagia, ear pain, epistaxis, headache(s), hearing loss, nasal congestion, nasal discharge, post nasal drip, sinus pressure, sore throat or other Cardiovascular Cardiovascular: Reports chest pain and other Details: Pounding in her chest Respiratory/Chest Respiratory/Chest: Reports shortness of breath at rest; Denies cough, dyspnea, excessive phlegm production, hemoptysis, productive cough, shortness of breath with exertion, wheezing or other Gastrointestinal Gastrointestinal: Denies abdominal pain, coffee ground emesis, constipation, diarrhea, dyspepsia, hematemesis, hematochezia, loose stools, melena, nausea, vomiting or other Genitourinary Genitourinary: Denies burning urination, difficulty urinating, dysuria, hematuria, nocturia, urinary frequency, urinary hesitancy, urinary incontinence, urinary urgency or other Musculoskeletal Musculoskeletal: Denies arthralgias, back pain, joint pain, joint stiffness, joint swelling, myalgias, neck pain or other Neurologic Neurologic: Reports headache(s); Denies abnormal gait, abnormal speech, confusion, disequilibrium, dizziness, focal weakness, numbness, paresthesias, seizure-like activity, seizures, syncope, tingling, tremor(s) or other Psychiatric Psychiatric: Denies anxiety, depression, homicidal ideation, suicidal ideation or other Endocrine Endocrinology: Denies change in body appearance, cold intolerance, excessive sweating, heat intolerance, polydipsia, polyuria or other Hematologic/Lymphatic Hematologic/Lymphatic: Denies anemia, easy bleeding, easy bruising, lymphadenopathy or other Allergic/Immunologic Allergic/Immunologic: Denies rhinitis, hives, eczemia, asthma or other Vital Signs Vital Signs Vital Signs: 06/07/24 03:38 06/07/24 03:45 06/07/24 04:15 Temperature 97.7 F L Temperature Source Temporal Pulse Rate 75 63 Respiratory Rate 16 18 Respiratory Effort Normal Non-Labored Respiratory Pattern Normal Blood Pressure 198/75 H 177/54 H Blood Pressure Mean 116 95 Pulse Ox 98 98 Oxygen Delivery Method Room Air Room Air 06/07/24 04:59 06/07/24 05:32 Temperature 97.7 F L Temperature Source Pulse Rate 81 71 Respiratory Rate 14 16 Respiratory Effort Respiratory Pattern Blood Pressure 177/52 H 182/67 H Blood Pressure Mean 93 105 Pulse Ox 99 99 Oxygen Delivery Method Weight Weight: 92.3 kg Body Mass Index (BMI) 36.0 Physical Exam Const alert, oriented x3, no apparent distress and well nourished; Negative for average body habitus Constitutional Narrative: Slightly agitated, obese, older, white female, sitting up in bed, currently appears comfortable, does not appear toxic, at bedside General Appearance: cooperative HEENT normocephalic, head/scalp atraumatic, hearing grossly normal bilaterally and moist oral mucous membranes Eyes PERRL and EOMs intact bilaterally Eyes Narrative: No scleral icterus Neck no lymphadenopathy and supple Neck Narrative: Trachea midline, no thyroid enlargement Resp normal respiratory effort, no retractions, no use of accessory muscles and clear to auscultation bilaterally Auscultation: Negative for rales, rhonchi or wheezes Cardio regular rate, regular rhythm, S1 normal heart sound, S2 normal heart sound, no murmurs, no rub and no clicks; Negative for no gallops Cardio Narrative: S4 gallop present GI normal to inspection, nondistended, normoactive bowel sounds, soft to palpation and non-tender Extremity no clubbing, cyanosis or edema Extremity Narrative: 2+ pedal pulses Neuro oriented x3, moves all extremities and no focal motor deficits Speech: speech normal Psych Psych Narrative: Slightly agitated, answers questions appropriately Results Lab / Micro Data 06/07/24 03:40 06/07/24 03:40 Labs: Laboratory Results - last 24 hr 06/07/24 03:40: WBC 7.5, RBC 4.56, Hgb 14.2, Hct 42.2, MCV 92.5, MCH 31.1, MCHC 33.6, RDW Std Deviation 44.3 H, RDW Coeff of [place] 13.2, Plt Count 220, MPV 10.5, Immature Gran % (Auto) 0.300, Neut % (Auto) 67.0, Lymph % (Auto) 19.3, [place] % (Auto) 9.6, Eos % (Auto) 3.1, Baso % (Auto) 0.7, Absolute Neuts (auto) 5.1, Absolute Lymphs (auto) 1.45, Nucleated RBC % 0, Sodium 137, Potassium 4.0, Chloride 106, Carbon Dioxide 25.0, Anion Gap 6, BUN 18, Creatinine 0.76, Estim Creat Clear Calc 61.54, Est GFR (MDRD) Af Amer 94, Est GFR (MDRD) Non-Af 78, BUN/Creatinine Ratio 23.6 H, Glucose 127 H, Calcium 9.4, Total Bilirubin 0.80, AST 29, ALT 29, Alkaline Phosphatase 78, Troponin I High Sens 11, Total Protein 6.8, Albumin 3.6, Globulin 3.2, Albumin/Globulin Ratio 1.1 Imaging Radiology Impression Brain CT 06/07/24 03:54 IMPRESSION: 1. No acute intracranial abnormalities. Follow up with additional imaging if clinically indicated. 2. Age-related changes. Electronically Signed: Pankaj Stallings MD at 5:09 EDT , Chest X-Ray 06/07/24 03:54 IMPRESSION: No evidence of active intrathoracic disease. Electronically Signed: Malena Verde MD at 4:28 EDT , Assessment & Plan Assessment/Plan (1) Chest pain: (2) Uncontrolled hypertension: (3) Hyperglycemia: PLAN: Plan Chest pain -Previous CABG x3- JOHNSON to LAD, SVG to OM1 and PDA 08/23/16 -Initial cardiac enzyme unremarkable-will cycle -Check echocardiogram -Check stress test -Check hemoglobin A1c -Check lipid panel -Continue home metoprolol -Continue home lisinopril -As needed nitroglycerin Accelerated hypertension -Patient appears to have uncontrolled hypertension and per review of other visits she has not really had very well-controlled blood pressure at any of those -Goal blood pressure should be less than 130/80 given history -Will continue lisinopril/HCTZ -Continue home metoprolol -Continue home amlodipine -Will follow blood pressures after given all the above medications to see what blood pressure is running and then patient may need further oral medications -Evidently medication tolerance has been problematic previously based on cardiology's last note from 12/20/2023 -As needed hydralazine available for systolic blood pressure greater than 160 -May be the precipitant for her chest pain Insulin resistance with hyperglycemia -Patient had previously been on metformin but did not tolerate due to side effects -Currently on nothing for diabetes -Hemoglobin A1c is pending -Will hold on sliding scale and Accu-Cheks for now but if A1c is markedly elevated or blood sugars are elevated may need to add Chronic palpitations -Patient has been following with cardiology and underwent Holter monitor in the past which revealed sinus rhythm with a rate of 80-100 -Appears to be noncardiac Essential hypertension/hyperlipidemia -Blood pressure medications as above -Continue home atorvastatin -Lipid panel is pending Carotid artery stenosis -Last carotid duplex done on 11/15/2022 showed moderate right extracranial internal carotid artery stenosis and mild left extracranial internal carotid artery stenosis with patent antegrade vertebral arteries -Continue aspirin -Continue risk modification as above with statin, blood pressure control, and glycemic control History of stroke -Continue aspirin -Continue risk factor modification GERD -Patient is not on any current medication -Monitor for symptoms History of heparin-induced thrombocytopenia -Occurred at the time of her coronary artery bypass -Avoid heparin and low molecular weight heparin products -Patient would need argatroban/bivalirudin for IV anticoagulation Obesity -BMI is 36.0 -Recommend weight loss -Complicates treatment, prognosis, outcomes DVT prophylaxis -SCDs -No chemoprophylaxis due to history of HIT CODE STATUS -DNR CCA okay for short-term intubation per discussion prior to admission Charges/Coding Visit Charges Inpatient E&M: 20624 Init Hosp L2
[2024-06-07 06:55] LABS: Magnesium 1.9 mg/dL (1.6-2.6); Phosphorus 3.5 mg/dL (2.5-4.9)
--- NOTE | 2024-06-07 06:58 | EKG12_ITS ---
Test Reason : Blood Pressure : / mmHG Vent. Rate : 073 BPM Atrial Rate : 073 BPM P-R Int : 170 ms QRS Dur : 082 ms QT Int : 432 ms P-R-T Axes : 041 037 069 degrees QTc Int : 475 ms Normal sinus rhythm Normal ECG When compared with ECG of 07-JUN-2024 04:00, Premature supraventricular complexes are no longer Present Confirmed by Kyle Kasper ([id number]), field map editor RIVER [place]ONEL ([id number]) on 06/12/2024 6:42:39 AM Referred By: [facility] Confirmed By:Kyle Kasper
[2024-06-07 07:36] LABS: Cholesterol 129 mg/dL (200); High Density Lipoprotein 57 mg/dL; Triglycerides 161 mg/dL; Troponin-I HS 14 pg/mL (3.0-54.0); Very Low Density Lipoprotein 32 mg/dL (5-40)
[2024-06-07] MEDS: Aspirin E.C. 81 MG Tablet PO (07:43)
[2024-06-07 09:12] LABS: Hemoglobin A1c 6.1 % (3.8-5.6)
[2024-06-07] MEDS: hydroCHLOROthiazide 25 MG Tablet 50 MG PO (10:11)
[2024-06-07] MEDS: amLODIPine 10 MG Tablet PO (10:11)
[2024-06-07] MEDS: Lisinopril 20 MG Tablet 40 MG PO (10:11)
[2024-06-07 10:59] LABS: Troponin-I HS 13 pg/mL (3.0-54.0)
--- NOTE | 2024-06-07 13:34 | STRESSREP_ITS ---
Stress Test Report Date: 06/07/2024 Procedure: Pharmacologic stress nuclear imaging study Indications: Chest pain Consent: Per the patient Procedure: The patient underwent pharmacologic (Regadenoson) evaluation with a peak heart rate of 99 beats per minute (70%predicted maximal heart rate) and a peak blood pressure of 158/70 mmHg. The baseline ECG demonstrated normal sinus rhythm, nonspecific ST-T changes. EKG during lexiscan infusion revealed no significant ischemic changes. EKG post infusion revealed no significant ischemic changes [There were no cardiac dysrhythmias pretest, during pharmacologic infusion, or recovery]. [There was no complaint of chest discomfort during pharmacologic infusion or recovery]. The examination was discontinued secondary to completion of protocol. Impression: 1. Lexiscan stress test test is negative for Lexiscan infusion induced EKG changes of ischemia. 2. Lexiscan stress test test is negative for Lexiscan infusion induced chest pain. 3. Results of the nuclear portion of the test is as below Myocardial perfusion imaging study: Technique: The patient was injected with 14.1 millicuries of technetium 99m Cardiolite and subsequently rest SPECT Cardiolite nuclear imaging was obtained in the horizontal long, vertical long, and short axis views. The patient underwent pharmacologic [Regadenoson 0.4mg] evaluation. Please see above for details. The patient was injected with 44.7 millicuries of technetium 99m Cardiolite and subsequently stress SPECT Cardiolite nuclear imaging was obtained in the horizontal long, vertical long, and short axis views. A gated Cardiolite study at peak stress was obtained. Interpretation: Rest and stress SPECT Cardiolite nuclear imaging status post realignment, normalization, and attenuation correction demonstrate no evidence of significant ischemia or infarction. Gated images reveal no significant regional wall motion abnormalities. The reported LVEF is greater than 70%. Impression: 1. There is no evidence of significant ischemia or infarction. 2. Estimated ejection fraction is greater than 70%. This note was generated with [employer] software. It may contain incorrect words, spelling, and punctuation that were not noted in checking the note before signing.
--- NOTE | 2024-06-07 14:45 | CASEMGMT ---
DEYIS CM into pt room, pt sitting on edge of bed eating lunch with at bedside. Pt states she is I in ADLs at home. States she uses a cane. Pt denies any homegoing needs.
--- NOTE | 2024-06-07 15:23 | RDU_ITS ---
Reason For Study: Uncontrolled HTN Right Renal Artery Left Renal Artery Right renal artery ostium 86.7/25.3 Left renal artery ostium 59.2/10.8 RSV/EDV. PSV/EDV. Right renal artery proximal Left renal artery proximal PSV/EDV 127.6/16.2 PSV/EDV. 131.0/23.5 . Right renal artery mid 136.1/20.9 Left renal artery mid 142.9/19.5 PSV/EDV. PSV/EDV . Right renal artery distal Left renal artery distal 141.7/16.6 118.7/23.8 PSV/EDV. PSV/EDV. Right RAR 1.38. Left RAR 1.44. Right Renal Parenchyma Left Renal Parenchyma Upper Pole Medula 64.5/16.0 Left upper pole medulla 45.2/6.5 PSV/EDV. PSV/EDV . Right upper pole medulla EDR 0.20 . Left upper pole medulla EDR 0.10 . Right upper pole medulla R.I. Left upper pole medulla R.I. 0.86 . 0.75 . UP Cortex 21.9/5.9 PSV/EDV. Upper Jim Cortx 23.3/4.9 PSV/EDV. Left upper pole cortex EDR 0.30 . Right upper pole cortex EDR 0.20 . Left upper pole cortex R.I. 0.73 . Right upper pole cortex R.I. 0.79 . Left lower Pole medulla 55.0/6.5 Right lower Pole medulla 54.7/8.3 PSV/EDV . PSV/EDV . Left lower pole medulla EDR 0.10 . Right lower pole medulla EDR 0.25 . Left lower pole medulla R.I. 0.88 . Right lower pole medulla R.I. Lower Pole Cortx 39.7/5.9 PSV/EDV. 0.70 . Left lower pole cortex EDR 0.10 . Lower Pole Cortex 31.9/7.2 PSV/EDV. Left lower pole cortex R.I. 0.85 . Right lower pole cortex EDR 0.20 . Left Renal Hilar Right lower pole cortex R.I. 0.77 . LT Hilar avg 123.1/14.8 PSV/EDV . Right Renal Hilar Left hilar acceleration time 50 Right Hilar avg 109.8/13.4 PSV/EDV. m/sec. Right hilar acceleration time 30 Left Renal Dimensions m/sec. Left kidney size 11.78 cm . Right Renal Dimensions Left cortical dimension 1.32 cm . Right kidney size 11.90 cm . Right cortical dimension 1.37 cm . Aorta Unable to accurately obtain AO measurements due to bowel gas. Distal abdominal aorta peak systolic velocity is 98.6 cm/sec . VL/Renal Artery Duplex Ultrasound Interpretation Summary Renal artery velocities are bilaterally normal. Renal-aortic ratios are also bi laterally normal. Acceleration times are normal bilaterally. There is no evidence of hemodynamica lly significant renal artery stenosis on either side. Renovascular resistance appears to be bilateral ly elevated . Cortical dimensions are bilaterally normal. Kidneys appear normal in size danay norman. Ordering Physician: Vianey Galvan Referring Physician: Judy Koch Performed By: Rd Resendez RVT
--- NOTE | 2024-06-07 16:09 | CASEMGMT ---
Met with patient to complete LAMBERT form. LAMBERT form explained to patient who voiced understanding and signed form. Original form placed in pt?s chart and copy provided to patient. Malathi Meza, Discharge Planning Asst
[2024-06-07] MEDS: Atorvastatin Calcium 40 MG Tablet PO (21:49)
[2024-06-08 03:33] VITALS: BP 113/50; PULSE 62; RESP 18; TEMP 36.6; O2SAT 98
[2024-06-08 08:10] VITALS: O2SAT 96
[2024-06-08 08:15] LABS: Absolute Lymphocyte Count 0.91 X10^3/uL (0.83-4.51); Absolute Neutrophil Count 5.3 X10^3/uL (2.0-7.7); Basophil# 0.05 X10^3/uL; Basophil% 0.7 % (0-1); Eosinophil# 0.21 X10^3/uL; Eosinophils% 2.9 % (0-5); Hematocrit 39.7 % (37-47); Hemoglobin 13.3 g/dL (12.0-15.0); Lymphocyte # 0.91 X10^3/ul (0.83-4.51); Lymphocyte % 12.6 % (19-41); Mean Corp Hgb Conc 33.5 g/dL (32-36); Mean Corpuscular Hgb 31.4 pg (27.0-32.0); Mean Corpuscular Volume 93.9 fL (81-99); Mean Platelet Vol. 10.2 fl (6.2-12.0); Monocyte# 0.68 X10^3/uL; Monocyte% 9.4 % (0-10); NRBC Flagged by Analyzer 0 % (0-5); Neutrophil # 5.33 X10^3/uL (2.7-7.7); Platelet Count 233 K/mm3 (150-450); RBC Distribution Width CV 13.3 % (11.6-14.6); RBC Distribution Width SD 46.2 fl (35.1-43.9); Red Blood Count 4.23 M/mm3 (4.2-5.4); White Blood Count 7.2 K/mm3 (4.4-11.0)
[2024-06-08 08:51] LABS: ALB/GLOB Ratio 1.1 RATIO (0.9-2.4); AST(SGOT) 19 U/L (15-37); Alanine Aminotransfer ALT/SGPT 27 U/L (13-56); Albumin, Serum 3.4 g/dL (3.2-5.0); Alkaline Phosphatase 64 U/L (45-117); Anion Gap 5 (5-15); BUN 19 mg/dL (7-18); BUN/Creat Ratio 20.1 RATIO (10-20); Calcium,Total 9.1 mg/dL (8.5-10.1); Chloride 105 mmol/L (98-107); Creatinine, Serum 0.94 mg/dL (0.55-1.02); EST Glomerular Filtration Rate 61 mL/min (>60); Est Glom Filt Rate - Afr Amer 73 mL/min (>60); Estimated Creatinine Clearance 50.64 ml/min; Glucose 138 mg/dL (74-106); Potassium 3.9 mmol/L (3.5-5.1); Protein, Total 6.4 g/dL (6.4-8.2); Sodium Level 139 mmol/L (136-145)
[2024-06-08 09:15] VITALS: BP 151/64; PULSE 69; RESP 14; TEMP 36.6; O2SAT 100
[2024-06-08 09:17] VITALS: BP 151/64; PULSE 69
[2024-06-08] MEDS: hydroCHLOROthiazide 25 MG Tablet 50 MG PO (09:17)
[2024-06-08] MEDS: Aspirin E.C. 81 MG Tablet PO (09:17)
[2024-06-08] MEDS: amLODIPine 10 MG Tablet PO (09:17)
[2024-06-08] MEDS: Metoprolol(XL)Succ 100 MG Tablet PO (09:17)
[2024-06-08] MEDS: Lisinopril 20 MG Tablet 40 MG PO (09:18)
--- NOTE | 2024-06-08 14:50 | DS.PCM_ITS ---
Providers Date of Admission: 06/07/24 Date of Discharge: 06/08/24 Primary Care Physician: YAIR BUNDY Reason For Visit: ACCELERATED HTN & CHEST PAIN Diagnosis Discharge Diagnosis (1) Chest pain: Status: Acute Code(s): R07.9 - Chest pain, unspecified (2) Uncontrolled hypertension: Status: Acute Code(s): I10 - Essential (primary) hypertension (3) Hyperglycemia: Status: Acute Code(s): R73.9 - Hyperglycemia, unspecified Medications at Discharge Home Medications atorvastatin 40 mg tablet 40 mg PO QHS 11/04/16 lisinopril 20 mg-hydrochlorothiazide 25 mg tablet 2 tab PO DAILY 09/26/19 metoprolol succinate 100 mg tablet,extended release 24 hr 100 mg PO DAILY 10/21/21 aspirin 81 mg tablet,delayed release 81 mg PO DAILY 09/22/22 vitamin B comp and C no.3 15 mg-10 mg-50 mg-5 mg-300 mg capsule (B Complex Plus Vitamin C) 1 cap PO DAILY 11/02/22 Cardio [place] PO 12/20/23 folic acid 800 mcg tablet 0.8 mg PO DAILY 12/20/23 amlodipine 10 mg tablet 10 mg PO DAILY 06/07/24 Hospital Course Operations None Procedures 2-D Echocardiogram Summary of Care Provided Minutes Spent on Discharge: 45 Hospital Course: Patient is a 78-year-old female with past medical history as outlined who was admitted through the ED on 06/07/2024 with a complaint of elevated blood pressure. She noted that her blood pressure had been elevated at home over the last 3 to 5 days prior to admission. She has been compliant with her home medications. However the day before she notices that her BP was a bit elevated and so she took an extra dose of her magnesium. She woke up with a racing herat and checked her BP; it was markedly elevated so she came in to the ED. in the ED she complained of some right-sided chest pain which was however pressure-like in nature and also complained of a slight headache. Blood pressure was 198/75 on admission. Troponins were not elevated and EKG showed no acute ST changes. Chest x-ray showed no acute cardiopulmonary process. CT of the brain showed no acute intracranial pathology. She was admitted and managed for accelerated hypertension as well as chest pain. She was placed back on her home doses of BP meds for meds to be adjusted as needed. Chest pain resolved. She had a stress test which showed no evidence of any acute ischemia. Her blood pressure did remain controlled in the hospital. Due to her poorly controlled blood pressure, she did have a renal duplex artery ultrasound to rule out renal stenosis, results of which were still pending at time patient was discharged. Per the radiology technologist, preliminary read was normal. She remained stable and was discharged home on 06/08/2024. She was continued with her home dose of her BP meds and keep a blood pressure log with results to be discussed with her PCP for adjustment of BP meds as needed. To be precise, she was on lisinopril hydrochlorothiazide 20/25 mg daily, metoprolol XL 100 mg daily, and amlodipine 10 mg daily. Patient seen and examined prior to discharge. She had no active complaints and had an uneventful night. Review of systems otherwise negative. Labs and vitals reviewed. Medication reviewed on consult. Physical Exam Const alert, oriented x3, no apparent distress and average body habitus General Appearance: cooperative, comfortable and well kempt Orientation / Consciousness: awake Exam Limitations: no limitations HEENT normocephalic, head/scalp atraumatic, hearing grossly normal bilaterally, moist oral mucous membranes and oropharynx normal Mouth: oral and palatal mucosa normal and dry mucous membranes Eyes PERRL, EOMs intact bilaterally and conjunctivae normal Neck no lymphadenopathy and supple Resp normal respiratory effort, no retractions, no use of accessory muscles and clear to auscultation bilaterally Cardio regular rate, regular rhythm, S1 normal heart sound, S2 normal heart sound and no murmurs GI normal to inspection, nondistended, normoactive bowel sounds, soft to palpation, non-tender and non-distended Extremity normal to inspection, full ROM and no clubbing, cyanosis or edema Skin no rashes or lesions noted Neuro oriented x3, CN's II-XII intact bilaterally, moves all extremities and no focal motor deficits Sensorium / Orientation: awake and alert Motor Exam: strength 5/5 throughout Psych affect normal Weight / BMI Weight Weight: 191 lb Body Mass Index (BMI) 33.8 ABG / Lab / Microbiology Data 06/08/24 07:43 06/08/24 07:43 Laboratory: Laboratory Results - last 24 hr 06/08/24 07:43: WBC 7.2, RBC 4.23, Hgb 13.3, Hct 39.7, MCV 93.9, MCH 31.4, MCHC 33.5, RDW Std Deviation 46.2 H, RDW Coeff of Maber 13.3, Plt Count 233, MPV 10.2, Immature Gran % (Auto) 0.400, Neut % (Auto) 74.0 H, Lymph % (Auto) 12.6 L, [place] % (Auto) 9.4, Eos % (Auto) 2.9, Baso % (Auto) 0.7, Absolute Neuts (auto) 5.3, Absolute Lymphs (auto) 0.91, Nucleated RBC % 0, Sodium 139, Potassium 3.9, Chloride 105, Carbon Dioxide 29.0, Anion Gap 5, BUN 19 H, Creatinine 0.94, Estim Creat Clear Calc 50.64, Est GFR (MDRD) Af Amer 73, Est GFR (MDRD) Non-Af 61, B UN/Creatinine Ratio 20.1 H, Glucose 138 H, Calcium 9.1, Total Bilirubin 1.30 H, AST 19, ALT 27, Alkaline Phosphatase 64, Total Protein 6.4, Albumin 3.4, Globulin 3.0, Albumin/Globulin Ratio 1.1 D/C Instructions Discharge Diet: Low fat / Low cholesterol Discharge Activity: Return to Normal Activity Weight Bearing Status: Weight bearing as tolerated Call your doctor if you observe: Fever of 101 or Higher, Shortness of breath, Dizziness, Swelling in the ankles and Chest pain Meaningful Use Info Meaningful Use Meaningful Use Diagnoses (Choose all that apply): None applicable Ischemic Stroke Statin Dosing Therapy Reference: STATIN DOSE THERAPY REFERENCE: * Patients > 75 years receive moderate or high dose statin therapy. * Patients 75 years or YOUNGER should receive HIGH intensity statin dose unless contraindicated. You will be required to document reason for non-treatment if statin daily dose does not meet guidelines. HIGH DOSE STATIN THERAPY DAILY Atorvastatin > than or = to 40 mg Rosuvastatin > than or = to 20 mg Amlodipine + Atorvastatin > than or = to 2.5/40 mg Ezetimibe + Simvastatin 10/80 mg Simvastatin 80mg Discharge Plan Admission Admit Date/Time: 06/07/24 05:42 Primary Reason for Your Visit: accelerated hypertension Attending Provider: Vianey Galvan Primary Care Provider: JEFFERY ENGEL Consulting Providers: Brandy Colindres Instructions Patient Instructions: Hypertension Dc Discharge Orders/Prescriptions Prescriptions: Continued metoprolol succinate 100 mg tablet extended release 24 hr 100 mg PO DAILY B Complex Plus Vitamin C 44-60-00-5-300 mg capsule 1 cap PO DAILY Rx Instructions: give with food (meal/snack) aspirin 81 mg tablet,delayed release (DR/EC) 81 mg PO DAILY folic acid 800 mcg tablet 0.8 mg PO DAILY Cardio [place] PO lisinopril-hydrochlorothiazide 20-25 mg tablet 2 tab PO DAILY Patient Comments: BLOOD PRESSURE, HEART atorvastatin 40 MG tablet 40 mg PO QHS amlodipine 10 mg tablet 10 mg PO DAILY Referrals / Follow Up: Karine Berg MD [Med Staff - [employer]] - Within 1 Week JEFFERY ENGEL CRNP [Primary Care Provider] - Disposition Disposition (needs filled in before D/C Order can be placed): Home, Self Care Charges/Coding Visit Charges Inpatient E&M: 04573 Disch Hosp >30min
[2024-06-08 14:56] VITALS: BP 116/56; PULSE 66; RESP 12; TEMP 36.6; O2SAT 99
--- NOTE | 2024-06-08 16:38 | DCINST_ITS ---
Discharge Instructions Diet Discharge Diet: Low fat / Low cholesterol Activity Discharge Activity: Return to Normal Activity Weight Bearing Status: Weight bearing as tolerated Dressing / Incision Call your doctor if you observe: Fever of 101 or Higher, Shortness of breath, Dizziness, Swelling in the ankles and Chest pain Follow Up Care Test Results: Test results from this visit will be discussed in further detail at your follow- up appointment, if applicable. Discharge Plan Admission Admit Date/Time: 06/07/24 05:42 Primary Reason for Your Visit: accelerated hypertension Attending Provider: Vianey Galvan Primary Care Provider: JEFFERY ENGEL Consulting Providers: Brandy Colindres Instructions Patient Instructions: Hypertension Dc Discharge Orders/Prescriptions Prescriptions: Continued metoprolol succinate 100 mg tablet extended release 24 hr 100 mg PO DAILY B Complex Plus Vitamin C 57-71-57-5-300 mg capsule 1 cap PO DAILY Rx Instructions: give with food (meal/snack) aspirin 81 mg tablet,delayed release (DR/EC) 81 mg PO DAILY folic acid 800 mcg tablet 0.8 mg PO DAILY Cardio [place] PO lisinopril-hydrochlorothiazide 20-25 mg tablet 2 tab PO DAILY Patient Comments: BLOOD PRESSURE, HEART atorvastatin 40 MG tablet 40 mg PO QHS amlodipine 10 mg tablet 10 mg PO DAILY Referrals / Follow Up: Karine Berg MD [Med Staff - [employer]] - Within 1 Week JEFFERY ENGEL CRNP [Primary Care Provider] - Disposition Disposition (needs filled in before D/C Order can be placed): Home, Self Care
== END 2024-06-08 14:32 | disposition home or self-care (01) ==
LOC: ED 05:34 → PCU 06:01
PROVIDERS: Admitting Provider Internal Medicine; Emergency Provider Emergency Medicine; PCP Nurse Practitioner Adult Health; Visit Provider Student in an Organized Health Care Education/Training Program
DX: R07.89 Other chest pain (principal); I27.21 Secondary pulmonary arterial hypertension; I48.0 Paroxysmal atrial fibrillation; R00.2 Palpitations; I10 Essential (primary) hypertension; R51.9 Headache, unspecified; R73.9 Hyperglycemia, unspecified; Z79.82 Long term (current) use of aspirin; E78.00 Pure hypercholesterolemia, unspecified; I25.10 Atherosclerotic heart disease of native coronary artery without angina pectoris; Z79.899 Other long term (current) drug therapy; K21.9 Gastro-esophageal reflux disease without esophagitis; Z95.1 Presence of aortocoronary bypass graft; E66.9 Obesity, unspecified; Z68.36 Body mass index [BMI] 36.0-36.9, adult
CPT/HCPCS: 36415; 70450; 71045; 78452; 80053; 80061; 83036; 83735; 84100; 84443; 84484; 85025; 93005; 93017; 93306; 93975; 94668; 96374; 99221; 99284; A9500; Q9957; A4216; C8929; G0378; J2785

== ENCOUNTER → 2024-07-31 | Outpatient (CLI) | payer MEDICARE, SELFPAY ==
--- NOTE | 2024-07-31 09:09 | CDU_ITS ---
Reason For Study: LT Carotid Bruit Rt. Velocities/BP Lt. Velocities/BP Prox CCA 104.7/15.1 cm/sec. Prox CCA 119.8/19.4 cm/sec. Mid CCA 69.1/17.6 cm/sec. Mid CCA 118.0/12.1 cm/sec. Dist CCA 91.2/18.8 cm/sec. Dist CCA 105.6/13.1 cm/sec. Prox ICA 147.4/37.5 cm/sec. Prox ICA 104.6/19.3 cm/sec. Mid ICA 117.3/23.6 cm/sec. Mid ICA 112.5/15.7 cm/sec. Dist ICA 110.9/23.6 cm/sec. Dist ICA 85.3/17.1 cm/sec. Rt. ICA/CCA = 2.1. Lt. ICA/CCA = 1.0. Prox ECA 152.9/2.3 cm/sec. Prox ECA 91.9/1.8 cm/sec. Rt. Vert. 54.4/9.0 cm/sec. Lt. Vert. 59.0/12.7 cm/sec. Right Extracranial There is heterogeneous, irregular atherosclerotic plaque noted in the right common carotid artery. There is heterogeneous, irregular atherosclerotic plaque noted in the right internal carotid artery. There is heterogeneous, irregular atherosclerotic plaque noted in the right external carotid artery. Antegrade flow is noted in the right vertebral artery. Left Extracranial There is heterogeneous, irregular atherosclerotic plaque noted in the left common carotid artery. There is heterogeneous, irregular atherosclerotic plaque noted in the left internal carotid artery. There is heterogeneous, irregular atherosclerotic plaque noted in the left external carotid artery. Antegrade flow is noted in the left vertebral artery. Procedure Carotid Duplex [id number]. This is a Carotid Duplex examination using B-mode, color flow and specral Doppler. The exam was diagnostic. Exam performed in department. VL/Carotid Duplex Ultrasound Interpretation Summary Moderate (50-69%) stenosis right extracranial internal carotid. Mild (<50%) stenosis left extracranial internal carotid. Patent and antegrade vertebrals bilaterally. Ordering Physician: Rosana Figueroa Referring Physician: Judy Koch Performed By: Rd Resendez RVT
== END | disposition home or self-care (01) ==
LOC: CVS 09:05
PROVIDERS: PCP Nurse Practitioner Adult Health; Referring Provider Physician Assistant Medical; Visit Provider Physician Assistant Medical
DX: R42 Dizziness and giddiness (principal)
CPT/HCPCS: 93880

== ENCOUNTER 2024-08-24 20:07 | Emergency (ER) | payer MEDICARE, SELFPAY ==
[2024-08-24 20:08] VITALS: BP 202/67; PULSE 69; RESP 18; TEMP 36.4; O2SAT 99
[2024-08-24 20:23] VITALS: BP 193/71; PULSE 70; RESP 14; O2SAT 98
[2024-08-24 20:55] LABS: Absolute Lymphocyte Count 0.73 X10^3/uL (0.83-4.51); Absolute Neutrophil Count 7.6 X10^3/uL (2.0-7.7); Basophil# 0.03 X10^3/uL; Basophil% 0.3 % (0-1); Eosinophil# 0.13 X10^3/uL; Eosinophils% 1.4 % (0-5); Hematocrit 38.4 % (37-47); Hemoglobin 13.4 g/dL (12.0-15.0); Lymphocyte # 0.73 X10^3/ul (0.83-4.51); Lymphocyte % 7.8 % (19-41); Mean Corp Hgb Conc 34.9 g/dL (32-36); Mean Corpuscular Hgb 31.8 pg (27.0-32.0); Mean Corpuscular Volume 91.2 fL (81-99); Mean Platelet Vol. 9.5 fl (6.2-12.0); Monocyte# 0.82 X10^3/uL; Monocyte% 8.7 % (0-10); NRBC Flagged by Analyzer 0 % (0-5); Neutrophil # 7.59 X10^3/uL (2.7-7.7); Neutrophil % 80.9 % (47-70); Platelet Count 264 K/mm3 (150-450); RBC Distribution Width CV 12.6 % (11.6-14.6); RBC Distribution Width SD 41.9 fl (35.1-43.9); Red Blood Count 4.21 M/mm3 (4.2-5.4); White Blood Count 9.4 K/mm3 (4.4-11.0)
[2024-08-24 21:12] LABS: Anion Gap 8 (5-15); BUN 15 mg/dL (7-18); BUN/Creat Ratio 20.5 RATIO (10-20); Calcium,Total 9.3 mg/dL (8.5-10.1); Chloride 105 mmol/L (98-107); Creatinine, Serum 0.73 mg/dL (0.55-1.02); EST Glomerular Filtration Rate 81 mL/min (>60); Est Glom Filt Rate - Afr Amer 98 mL/min (>60); Glucose 136 mg/dL (74-106); Potassium 3.8 mmol/L (3.5-5.1); Sodium Level 138 mmol/L (136-145); Troponin-I HS (w/2H Reflex) 14 pg/mL (3.0-54.0)
[2024-08-24 21:13] VITALS: BP 178/77; PULSE 68; RESP 17; O2SAT 98
[2024-08-24 21:55] VITALS: BP 164/57; PULSE 65; RESP 10; O2SAT 97
[2024-08-24 22:47] VITALS: BP 208/74; PULSE 65; RESP 11; O2SAT 98
[2024-08-24 22:48] LABS: Reflex Troponin-HS? (from REC) Y
[2024-08-24 23:17] LABS: Troponin-I HS 20 pg/mL (3.0-54.0)
[2024-08-24 23:35] VITALS: BP 196/44; PULSE 66; RESP 15; O2SAT 98
[2024-08-25 00:07] VITALS: BP 196/44; PULSE 66; RESP 15; TEMP 36.4; O2SAT 98
== END 2024-08-25 00:12 | disposition home or self-care (01) ==
PROVIDERS: Emergency Provider Emergency Medicine; PCP Nurse Practitioner Adult Health; Visit Provider Emergency Medicine
DX: I10 Essential (primary) hypertension (principal); R07.9 Chest pain, unspecified; E78.00 Pure hypercholesterolemia, unspecified; I25.10 Atherosclerotic heart disease of native coronary artery without angina pectoris; R51.9 Headache, unspecified; Z79.899 Other long term (current) drug therapy; K21.9 Gastro-esophageal reflux disease without esophagitis
CPT/HCPCS: 70450; 71046; 80048; 84484; 85025; 93005; 99284; A4216

== ENCOUNTER 2024-12-11 08:40 | Emergency (ER) | payer MEDICARE, SELFPAY ==
[2024-12-11] VITALS (8 sets, daily range): BP systolic 123–198; BP diastolic 46–78; PULSE 59–67; RESP 13–18; TEMP 36.6–36.9; O2SAT 96–98; BMI 34.7
--- NOTE | 2024-12-11 08:56 | RAD_ITS ---
PROCEDURE: CHEST 1 VIEW (PORTABLE) REASON FOR EXAM: Chest pain. Hypertension. TECHNIQUE: Frontal view of the chest. COMPARISON: Comparison is made with prior study dated August 24, 2024. FINDINGS: EKG electrodes are seen. Prior CABG. Atherosclerotic calcification of the aortic arch. The lungs are clear. Degenerative changes are identified within the thoracic spine. Degenerative changes of both shoulders. Small hiatal hernia. RAD/Chest 1 View (Portable) IMPRESSION: Status post CABG. No acute abnormality is seen. Reading Location: [id number]
--- NOTE | 2024-12-11 08:58 | EX.ED.DYSGE1 ---
HPI History of Present Illness Chief Complaint: Hypertension Detail of Chief Complaint: High blood pressure and chest discomfort Informant: patient Narrative Narrative: Patient presents to the emergency department via EMS from home with concern for elevated blood pressure. Patient states that she had a spell this morning after waking up where she just felt funny after getting out of bed. She checked her blood pressure like she normally does and it was 250 systolic. Patient called EMS. She said that she has had about 7 spells like this in the past and has had come to the emergency department. She did take her metoprolol this morning. She did not take her lisinopril HCTZ or her amlodipine. She relates that she had a episode of chest discomfort and left side of her chest just felt like a little bit of pressure that lasted a minute or 2 and rated about a 1 or 2 out of 10. Patient denies recent illness. She denies recent travel or surgery. She does have history of prior CABG 3 vessels that was done about 8 years ago at [facility]. She denies urinary symptoms. Currently not having any chest discomfort. She does have history of some anxiety but denies any increase stressors. [facility] Medical History Uncontrolled hypertension Heparin-induced thrombocytopenia Paroxysmal atrial fibrillation Pure hypercholesterolemia Essential (primary) hypertension Atherosclerosis of [place] coronary artery of [place] heart without angina pectoris Shortness of breath Fatigue Palpitations Cardiac murmur Abnormal electrocardiogram [ECG] [EKG] Encounter for long-term current use of high risk medication Cerebral infarction USP use of drug Secondary pulmonary arterial hypertension GERD (gastroesophageal reflux disease) Home Medications ?Medication ?Instructions ?Recorded ?Last Taken ?Type lisinopril 20 2 tab PO DAILY blood pressure 09/26/19 Unknown History mg-hydrochlorothiazide 25 mg tablet aspirin 81 mg tablet,delayed 81 mg PO DAILY heart health 09/22/22 Unknown History release vitamin B comp and C no.3 15 mg-10 1 cap PO DAILY supplement 11/02/22 Unknown History mg-50 mg-5 mg-300 mg capsule (B Complex Plus Vitamin C) Cardio [place] PO 12/20/23 Unknown History folic acid 800 mcg tablet 0.8 mg PO DAILY supplement 12/20/23 Unknown History amlodipine 10 mg tablet 10 mg PO DAILY blood pressure 06/07/24 Unknown History metoprolol succinate 100 mg 100 mg PO QHS 08/24/24 Unknown History tablet,extended release 24 hr lorazepam 1 mg tablet (Ativan) 1 mg PO TID PRN anxiety #10 tabs 12/11/24 Unknown Rx Allergy/AdvReac Type Severity Reaction Status Date / Time heparin Allergy Other Verified 12/11/24 08:41 metformin AdvReac Other Verified 12/11/24 08:41 Family History Father CAD (coronary artery disease) CVA (cerebral vascular accident) Mother Diabetes Brother ablation for SVT x2 Surgical History History of hysterectomy H/O coronary artery bypass surgery (~08/23/16) Social History household members: spouse Smoking Status: Never smoker alcohol intake: never substance use type: does not use caffeine: Yes Type: coffee Number of servings: 1 what type of physical activity do you participate in: none ROS ROS ED ROS Narrative Hypertension Review of Systems ROS Unobtainable: other Constitutional Constitutional ED: Reports lethargy; Denies chills, fever(s), sweats or weight loss Eyes Eyes: Denies blurry vision, change in vision or diplopia ENT ENT ED: Denies rhinorrhea or sore throat Cardiovascular Cardiovascular: Reports chest pain; Denies orthopnea or racing heartbeat Respiratory/Chest Respiratory/Chest: Denies cough, dyspnea, dyspnea on exertion, orthopnea or sputum Gastrointestinal Gastrointestinal: Denies abdominal pain, diarrhea, nausea or vomiting Genitourinary Genitourinary ED: Denies dysuria, hematuria or urinary frequency Musculoskeletal Musculoskeletal: Denies arthralgias, back pain, myalgias or neck pain Integumentary Denies abscess, Abrasions or rash Neurologic Neurologic: Denies headache(s) or weakness Psychiatric Psychiatric: Denies anxiety, depression or suicidal thoughts Endocrine Endocrinology: Denies polydipsia, polyphagia or polyuria Hematologic/Lymphatic Hematologic/Lymphatic: Denies easy bleeding, easy bruising or lymphadenopathy Allergic/Immunologic Allergic/Immunologic ED: Denies mouth swelling, tongue swelling or urticaria EXAM Physical Exam Const Vital Signs: 12/11/24 08:41 12/11/24 08:41 12/11/24 08:49 Temperature 98.2 F Temperature Source Oral Pulse Rate 63 64 Respiratory Rate 18 18 Respiratory Effort Respiratory Pattern Normal Blood Pressure 187/58 H 187/58 H Blood Pressure Mean 101 101 Pulse Ox 98 98 Oxygen Delivery Method Room Air Room Air 12/11/24 08:50 12/11/24 09:02 12/11/24 09:40 Temperature Temperature Source Pulse Rate 62 Respiratory Rate 18 Respiratory Effort Normal Respiratory Pattern Blood Pressure 176/78 H Blood Pressure Mean 110 Pulse Ox 97 Oxygen Delivery Method Room Air Room Air 12/11/24 10:00 12/11/24 11:00 12/11/24 12:00 Temperature Temperature Source Pulse Rate 61 60 59 L Respiratory Rate 18 18 18 Respiratory Effort Respiratory Pattern Blood Pressure 198/72 H 189/59 H 184/64 H Blood Pressure Mean 114 102 104 Pulse Ox 98 98 97 Oxygen Delivery Method Room Air Room Air Room Air 12/11/24 13:00 12/11/24 14:00 Temperature 98.4 F Temperature Source Temporal Pulse Rate 64 62 Respiratory Rate 18 13 Respiratory Effort Respiratory Pattern Blood Pressure 134/78 H 127/46 H Blood Pressure Mean 96 73 Pulse Ox 98 98 Oxygen Delivery Method Room Air Room Air Positive well nourished and well developed General Appearance ED: well developed and NAD HEENT Reports TM's clear and moist mucous membranes normocephalic and atraumatic; Negative for trauma or tenderness Tympanic Membrane ED: Yes TM's clear Eyes PERRL and EOMs intact bilaterally General Eye ED: Negative for pale conjunctiva or scleral icterus Neck no lymphadenopathy, supple and no JVD General: Negative for tenderness Chest Wall inspection of chest normal and palpation of chest normal Chest: Negative for tenderness Resp normal respiratory effort and clear to auscultation bilaterally Effort and Inspection: Negative for respiratory distress or pain with movement Auscultation: Negative for rhonchi, wheezes or diminished lung sounds Cardio regular rate, regular rhythm, S1 normal heart sound, S2 normal heart sound and no murmurs Peripheral Pulses: pulses 2+ throughout GI normal to inspection, nondistended, normoactive bowel sounds, soft to palpation, non-tender, non-distended and no masses Back/Spine no CVA tenderness and no thoracic nor lumbar tenderness Extremity normal to inspection General Extremety ED: Negative for edema General Extremity: Negative for edema Neuro oriented x3, CN's II-XII intact bilaterally, no sensory deficits noted and gait normal Sensorium / Orientation: awake, alert, oriented to person, oriented to place and oriented to time Motor Exam: strength 5/5 throughout and strength abnormal Psych mental status grossly normal Skin no rashes or lesions noted and no wounds MDM MDM MDM Narrative Medical decision making narrative: Patient presents with episodes of hypertension that started this morning. She states that she has had multiple episodes like this and nobody can find out what is wrong. She is worried about her amino acid levels. Patient had taken lysine for a time and then stopped taking it because it was thought it might help with her anxiety. She has history of hypertension and history of A-fib as well as history of prior stroke. Clinically she looks well. She had vague chest discomfort when her blood pressure was elevated. Currently not having any chest pain. She had a CABG years ago three-vessel. Established. EKG obtained arrival showed a sinus rhythm with rate of 65 bpm with no acute ST segment changes. CBC with differential showed a white count of 5.6 with hemoglobin 13.8 and platelet count of 266. Chemistries unremarkable. First troponin was normal at 14 and delta troponin at 2 hours also normal at 14. Patient was given her lisinopril and amlodipine on arrival. We then discussed her symptomatology and she does have history of some anxiety. She agreed to take a milligram of Ativan. After a milligram of Ativan IV now her blood pressure in the 120s over 70s. I feel patient can be discharged to home. I will give her as needed Ativan. Advised her to discuss with her primary care physician possibly starting long-term anxiety medication. Lab Data Attestation: I reviewed the patient's lab results. Labs: Laboratory Results - last 24 hr 12/11/24 12/11/24 12/11/24 09:00 09:00 09:00 WBC 5.6 RBC 4.50 Hgb 13.8 Hct 41.2 MCV 91.6 MCH 30.7 MCHC 33.5 RDW Std Deviation 46.4 H RDW Coeff of Amber 13.6 Plt Count 266 MPV 10.3 Immature Gran % (Auto) 0.500 Neut % (Auto) 69.3 Lymph % (Auto) 17.0 L Dawson % (Auto) 9.8 Eos % (Auto) 2.7 Baso % (Auto) 0.7 Absolute Neuts (auto) 3.9 Absolute Lymphs (auto) 0.95 Nucleated RBC % 0 Sodium 138 Cancelled Potassium 3.9 Cancelled Chloride 102 Carbon Dioxide Anion Gap BUN Creatinine Estim Creat Clear Calc Est GFR (MDRD) Af Amer Est GFR (MDRD) Non-Af BUN/Creatinine Ratio Glucose Calcium Troponin I High Sens Troponin T High Sens Delta Troponin T Troponin T Hi Sens 2 Hr Urine Color Urine Clarity Urine pH Ur Specific [place] Urine Protein Urine Glucose (UA) Urine Ketones Urine Occult Blood Urine Nitrite Urine Bilirubin Urine Urobilinogen Ur Leukocyte Esterase Urine RBC Urine WBC Ur Squamous Epith Cells Urine Bacteria Urine Mucus 12/11/24 12/11/24 12/11/24 09:00 09:00 09:00 WBC RBC Hgb Hct MCV MCH MCHC RDW Std Deviation RDW Coeff of Amber Plt Count MPV Immature Gran % (Auto) Neut % (Auto) Lymph % (Auto) Dawson % (Auto) Eos % (Auto) Baso % (Auto) Absolute Neuts (auto) Absolute Lymphs (auto) Nucleated RBC % Sodium Potassium Chloride Cancelled Carbon Dioxide 24.1 Cancelled Anion Gap 12 Cancelled BUN 24 H Creatinine Estim Creat Clear Calc Est GFR (MDRD) Af Amer Est GFR (MDRD) Non-Af BUN/Creatinine Ratio Glucose Calcium Troponin I High Sens Troponin T High Sens Delta Troponin T Troponin T Hi Sens 2 Hr Urine Color Urine Clarity Urine pH Ur Specific [place] Urine Protein Urine Glucose (UA) Urine Ketones Urine Occult Blood Urine Nitrite Urine Bilirubin Urine Urobilinogen Ur Leukocyte Esterase Urine RBC Urine WBC Ur Squamous Epith Cells Urine Bacteria Urine Mucus 12/11/24 12/11/24 12/11/24 09:00 09:00 09:00 WBC RBC Hgb Hct MCV MCH MCHC RDW Std Deviation RDW Coeff of [place] Plt Count MPV Immature Gran % (Auto) Neut % (Auto) Lymph % (Auto) Dawson % (Auto) Eos % (Auto) Baso % (Auto) Absolute Neuts (auto) Absolute Lymphs (auto) Nucleated RBC % Sodium Potassium Chloride Carbon Dioxide Anion Gap BUN Cancelled Creatinine 0.8 Cancelled Estim Creat Clear Calc 59.32 Est GFR (MDRD) Af Amer 92 Est GFR (MDRD) Non-Af 76 Cancelled BUN/Creatinine Ratio 30.5 H Glucose Calcium Troponin I High Sens Troponin T High Sens Delta Troponin T Troponin T Hi Sens 2 Hr Urine Color Urine Clarity Urine pH Ur Specific [place] Urine Protein Urine Glucose (UA) Urine Ketones Urine Occult Blood Urine Nitrite Urine Bilirubin Urine Urobilinogen Ur Leukocyte Esterase Urine RBC Urine WBC Ur Squamous Epith Cells Urine Bacteria Urine Mucus 12/11/24 12/11/24 12/11/24 09:00 09:00 09:00 WBC RBC Hgb Hct MCV MCH MCHC RDW Std Deviation RDW Coeff of Amber Plt Count MPV Immature Gran % (Auto) Neut % (Auto) Lymph % (Auto) Dawson % (Auto) Eos % (Auto) Baso % (Auto) Absolute Neuts (auto) Absolute Lymphs (auto) Nucleated RBC % Sodium Potassium Chloride Carbon Dioxide Anion Gap BUN Creatinine Estim Creat Clear Calc Est GFR (MDRD) Af Amer Est GFR (MDRD) Non-Af BUN/Creatinine Ratio Cancelled Glucose 127 H Cancelled Calcium 10.0 Cancelled Troponin I High Sens TNP Troponin T High Sens 14 Delta Troponin T Troponin T Hi Sens 2 Hr Urine Color Urine Clarity Urine pH Ur Specific [place] Urine Protein Urine Glucose (UA) Urine Ketones Urine Occult Blood Urine Nitrite Urine Bilirubin Urine Urobilinogen Ur Leukocyte Esterase Urine RBC Urine WBC Ur Squamous Epith Cells Urine Bacteria Urine Mucus 12/11/24 12/11/24 09:24 12:40 WBC RBC Hgb Hct MCV MCH MCHC RDW Std Deviation RDW Coeff of Amber Plt Count MPV Immature Gran % (Auto) Neut % (Auto) Lymph % (Auto) Dawson % (Auto) Eos % (Auto) Baso % (Auto) Absolute Neuts (auto) Absolute Lymphs (auto) Nucleated RBC % Sodium Potassium Chloride Carbon Dioxide Anion Gap BUN Creatinine Estim Creat Clear Calc Est GFR (MDRD) Af Amer Est GFR (MDRD) Non-Af BUN/Creatinine Ratio Glucose Calcium Troponin I High Sens Troponin T High Sens Delta Troponin T 0 Troponin T Hi Sens 2 Hr 14 Urine Color Yellow Urine Clarity Clear Urine pH 6.0 Ur Specific [place] 1.010 Urine Protein 15 H Urine Glucose (UA) Normal Urine Ketones Negative Urine Occult Blood Negative Urine Nitrite Negative Urine Bilirubin Negative Urine Urobilinogen Normal Ur Leukocyte Esterase Negative Urine RBC 0 SEEN Urine WBC 0 SEEN Ur Squamous Epith Cells 0 SEEN Urine Bacteria 0 SEEN Urine Mucus 0 SEEN Radiography Diagnostic Testing: Clinical Impression(s) from Imaging Studies Chest X-Ray 12/11/24 08:56 IMPRESSION: Status post CABG. No acute abnormality is seen. Reading Location: [id number] 1 view chest x-ray obtained interpreted by myself as no evidence of infiltrate or pneumothorax or acute disease process. Radiology in agreement. EKG Initial EKG: Attestation: I personally reviewed and interpreted this EKG as follows: Comments: Sinus rhythm with rate of 65 bpm with no acute ST segment changes Discharge Plan Triage Chief Complaint: Hypertension ED Provider: Marko Merritt Dx/Rx/DC Orders Clinical Impression: Hypertension, Anxiety, Chest pain Instructions: ED Anxiety Reaction, ED Chest Pain, Uncertain Cause, ED Hypertension, Established Prescriptions: New lorazepam [Ativan] 1 mg tablet 1 mg PO TID PRN (Reason: anxiety) Qty: 10 0RF No Action B Complex Plus Vitamin C 44-24-54-5-300 mg capsule 1 cap PO DAILY Rx Instructions: give with food (meal/snack) aspirin 81 mg tablet,delayed release (DR/EC) 81 mg PO DAILY folic acid 800 mcg tablet 0.8 mg PO DAILY Cardio [place] PO lisinopril-hydrochlorothiazide 20-25 mg tablet 2 tab PO DAILY Patient Comments: BLOOD PRESSURE, HEART amlodipine 10 mg tablet 10 mg PO DAILY metoprolol succinate 100 mg tablet extended release 24 hr 100 mg PO QHS Primary Care Provider: Jordyn Ayala RIPRAP WORKER Referrals: JEFFERY ENGEL CRNP [Non-Staff] - 3-5 Days Print Language: Wolof Disposition Disposition: Home, Self Care
--- NOTE | 2024-12-11 09:00 | EKG12_ITS ---
Test Reason : HTN/CP Blood Pressure : */* mmHG Vent. Rate : 65 BPM Atrial Rate : 65 BPM P-R Int : 168 ms QRS Dur : 80 ms QT Int : 422 ms P-R-T Axes : 41 28 65 degrees QTcB Int : 438 ms Normal sinus rhythm Normal ECG Confirmed by Kyle Kasper ([id number]), editor publications QUINCY CANALES ([id number]) on 12/12/2024 8:21:46 AM Referred By: Confirmed By: Kyle Kasper
[2024-12-11 09:16] LABS: Absolute Lymphocyte Count 0.95 X10^3/uL (0.83-4.51); Absolute Neutrophil Count 3.9 X10^3/uL (2.0-7.7); Basophil# 0.04 X10^3/uL; Basophil% 0.7 % (0-1); Eosinophil# 0.15 X10^3/uL; Eosinophils% 2.7 % (0-5); Hematocrit 41.2 % (37-47); Hemoglobin 13.8 g/dL (12.0-15.0); Lymphocyte # 0.95 X10^3/ul (0.83-4.51); Mean Corp Hgb Conc 33.5 g/dL (32-36); Mean Corpuscular Hgb 30.7 pg (27.0-32.0); Mean Corpuscular Volume 91.6 fL (81-99); Mean Platelet Vol. 10.3 fl (6.2-12.0); Monocyte# 0.55 X10^3/uL; Monocyte% 9.8 % (0-10); NRBC Flagged by Analyzer 0 % (0-5); Neutrophil # 3.88 X10^3/uL (2.7-7.7); Neutrophil % 69.3 % (47-70); Platelet Count 266 K/mm3 (150-450); RBC Distribution Width CV 13.6 % (11.6-14.6); RBC Distribution Width SD 46.4 fl (35.1-43.9); White Blood Count 5.6 K/mm3 (4.4-11.0)
[2024-12-11] MEDS: Lisinopril 40 MG Tablet PO (09:24)
[2024-12-11] MEDS: Aspirin 81 MG TAB.CHEW 324 MG PO (09:24)
[2024-12-11] MEDS: amLODIPine 10 MG Tablet PO (09:24)
[2024-12-11 09:38] LABS: Bacteria 0 SEEN /hpf (None Seen); Mucous, Urine 0 SEEN /hpf (<or=2+); Squamous Epithelial Cells - UA 0 SEEN /hpf (5-10); White Blood Cells 0 SEEN /hpf (0-5)
[2024-12-11 09:45] LABS: Color, Urine Yellow (Yellow); Glucose, Dipstick Normal (Normal); Ketone-Dipstick Negative (Negative); Leukocyte Esterase-Dipstick Negative /ul (Negative); Nitrite-Dipstick Negative (Negative); Occult Blood-Urine Negative /ul (Negative); Protein-Dipstick 15 mg/dl (Negative); Urine Bilirubin Dipstick Negative (Negative); Urine Clarity Clear (Clear); Urine Urobilinogen Normal (Normal)
[2024-12-11 09:52] LABS: Red Blood Cells-Urine 0 SEEN /hpf (0-5)
[2024-12-11 10:55] LABS: BUN 24 mg/dL (4-19); Creatinine, Serum 0.8 mg/dL (0.6-1.0); Glucose 127 mg/dL (70-99)
[2024-12-11 10:56] LABS: BUN/Creat Ratio 30.5 RATIO (10-20); EST Glomerular Filtration Rate 76 (>60); Est Glom Filt Rate - Afr Amer 92 mL/min (>60)
[2024-12-11] MEDS: Lorazepam 2 MG/ML WCH Syringe 1 MG IV (12:35)
[2024-12-11 12:53] LABS: Troponin T High Sensitivity 14 ng/L (<=14)
[2024-12-11 13:31] LABS: Sodium Level 138 mmol/L (136-145)
[2024-12-11 13:32] LABS: Anion Gap 12 (5-15); Carbon Dioxide 24.1 mmol/L (21.0-32.0); Chloride 102 mmol/L (98-107); Potassium 3.9 mmol/L (3.5-5.1)
[2024-12-11 14:53] LABS: TROPONIN VARIANCE 2 HR 0; Troponin T High Sens 2 HR 14 ng/L (<=14)
== END 2024-12-11 15:35 | disposition home or self-care (01) ==
PROVIDERS: Emergency Provider Emergency Medicine; PCP Nurse Practitioner Family; Visit Provider Emergency Medicine
DX: I10 Essential (primary) hypertension (principal); I27.21 Secondary pulmonary arterial hypertension; I48.0 Paroxysmal atrial fibrillation; F41.9 Anxiety disorder, unspecified; R07.9 Chest pain, unspecified; I25.10 Atherosclerotic heart disease of native coronary artery without angina pectoris; E78.00 Pure hypercholesterolemia, unspecified; Z79.82 Long term (current) use of aspirin; Z79.899 Other long term (current) drug therapy; Z95.1 Presence of aortocoronary bypass graft; Z86.73 Personal history of transient ischemic attack (TIA), and cerebral infarction without residual deficits
CPT/HCPCS: 71045; 80048; 81001; 84484; 85025; 93005; 96374; 99285

== ENCOUNTER 2025-04-10 21:15 | Emergency (ER) | payer MEDICARE, SELFPAY ==
[2025-04-10 21:16] VITALS: BP 188/54; PULSE 75; RESP 18; TEMP 36.9; O2SAT 97
--- NOTE | 2025-04-10 21:58 | EDS_ITS ---
HPI History of Present Illness Chief Complaint: Hypertension Informant: patient and family Narrative Narrative: Patient is an 79-year-old female with past medical history of paroxysmal atrial fibrillation hypertension hyperlipidemia. She states she has been under a great deal of stress recently. She reports has been taking her blood pressure medication as directed but has noticed that her pressures have been elevated recently. She states that she is unsure if this is due to her medication not controlling her blood pressure any further or potentially from the anxiety. She does state that she was seen back in November for something similar and at that time it may have been anxiety driving her hypertension. She reports she was given Ativan at that time and it did help resolve her symptoms. She reports she is only had to take it sparingly since that evaluation but now she is completely out and with the increased stress has concerned she may need more to help control her hypertension. 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 Secondary pulmonary arterial hypertension GERD (gastroesophageal reflux disease) Home Medications ?Medication ?Instructions ?Recorded ?Last Taken ?Type lisinopril 20 2 tab PO DAILY blood pressur e 09/26/19 Unknown History mg-hydrochlorothiazide 25 mg tablet aspirin 81 mg tablet,delayed 81 mg PO DAILY heart heal th 09/22/22 Unknown History release vitamin B comp and C no.3 15 mg-10 1 cap PO DAILY supp lement 11/02/22 Unknown History mg-50 mg-5 mg-300 mg capsule (B Complex Plus Vitamin C) Cardio [place] PO 12/20/23 Unknown History folic acid 800 mcg tablet 0.8 mg PO DAILY supplement 0 12/20/23 Unknown History amlodipine 10 mg tablet 10 mg PO DAILY blood pressur e 06/07/24 Unknown History metoprolol succinate 100 mg 100 mg PO QHS 08/24/24 Unk nown History tablet,extended release 24 hr lorazepam 1 mg tablet (Ativan) 1 mg PO TID PRN anxiety #10 tabs 12/11/24 Unknown Rx lorazepam 1 mg tablet (Ativan) 1 mg PO TID PRN anxiety 7 days #21 04/10/25 Unknown Rx tabs Allergy/AdvReac Type Severity Reaction Status Date / Time heparin Allergy Other Verified 04/10/25 21:16 metformin AdvReac Other Verified 04/10/25 21:16 Family History Father CAD (coronary artery disease) CVA (cerebral vascular accident) Mother Diabetes Brother ablation for SVT x2 Surgical History History of hysterectomy H/O coronary artery bypass surgery (~08/23/16) Social History household members: spouse Smoking Status: Never smoker alcohol intake: never substance use type: does not use caffeine: Yes Type: coffee Number of servings: 1 what type of physical activity do you participate in: none ROS ROS ED Constitutional Constitutional ED: Denies chills or fever(s) Eyes Eyes: Denies change in vision ENT ENT ED: Denies sore throat Cardiovascular Cardiovascular: Denies chest pain, palpitations or racing heartbeat Respiratory/Chest Respiratory/Chest: Denies cough or dyspnea Gastrointestinal Gastrointestinal: Denies abdominal pain, diarrhea, nausea or vomiting Genitourinary Genitourinary ED: Denies dysuria Musculoskeletal Musculoskeletal: Denies back pain Integumentary Denies rash Neurologic Neurologic: Denies headache(s) Psychiatric Psychiatric: Reports anxiety EXAM Physical Exam Const Vital Signs: 04/10/25 21:16 04/10/25 21:19 04/10/25 22:00 Temperature 98.5 F Temperature Source Oral Pulse Rate 75 71 Respiratory Rate 18 16 Respiratory Effort Normal Non-Labored Respiratory Pattern Normal Blood Pressure 188/54 H 199/56 H Blood Pressure Mean 98 103 Pulse Ox 97 97 Oxygen Delivery Method Room Air Room Air Positive well nourished and well developed General Appearance ED: well developed; Negative for pallor HEENT HEENT Narrative: Normocephalic atraumatic Eyes PERRL and EOMs intact bilaterally General Eye ED: Negative for scleral icterus Neck supple Neck Narrative: No nuchal rigidity or meningeal sign Resp normal respiratory effort and clear to auscultation bilaterally Cardio regular rate and regular rhythm Rate: other Other Details: Heart is regular rate and rhythm Radial and carotid pulses are equal and symmetric GI normal to inspection, nondistended, normoactive bowel sounds, non-tender, non-distended and no masses GI Narrative: No voluntary guarding or rigidity No pulsatile mass Auscultation: normoactive bowel sounds Palpation: soft Extremity normal to inspection Neuro oriented x3, CN's II-XII intact bilaterally and no sensory deficits noted Sensorium / Orientation: alert Motor Exam: strength 5/5 throughout Psych Mood & Affect: anxious Skin no rashes or lesions noted and no wounds General Skin Exam: Negative for jaundice or pallor MDM MDM MDM Narrative Medical decision making narrative: Patient arrived to the ER hypertensive but otherwise with stable vitals. She reported a past medical history of hypertension and states she has been taking her medications as directed. She denies any chest pain headache change in vision or abdominal pain. Concern for acute coronary syndrome or a abdominal aortic aneurysm or a spontaneous subarachnoid subdural hemorrhage is low. We did discuss performing a workup for endorgan damage. Patient states that based on her previous workup in November and the fact that her symptoms resolved with anxiety she only feels that she needs some Ativan at this time. An EKG was obtained to ensure no signs of cardiac ischemia. However as she has low concern that there is acute kidney injury or other process driving hypertension other than anxiety the decision was made to not perform any laboratory testing and she was treated with Ativan. On reevaluation she has had resolution of her hypertension and reports feeling much better. Therefore with improvement of her hypertension and resolution of symptoms and the fact that she remains poncho rologically intact I do not feel the need for further workup and she is otherwise safe for discharge History & Record Review Discussion w/independent historian: Patient and Family Discharge Plan Triage Chief Complaint: Hypertension ED Provider: Fer Osborne Dx/Rx/DC Orders Clinical Impression: Accelerated hypertension, Anxiety, Paroxysmal atrial fibrillation, Hyperlipidemia Instructions: Anxiety Disorders Tx, ED Hypertension, Established Prescriptions: New lorazepam [Ativan] 1 mg tablet 1 mg PO TID PRN (Reason: anxiety) 7 Days Qty: 21 0RF No Action B Complex Plus Vitamin C 09-66-69-5-300 mg capsule 1 cap PO DAILY Rx Instructions: give with food (meal/snack) aspirin 81 mg tablet,delayed release (DR/EC) 81 mg PO DAILY folic acid 800 mcg tablet 0.8 mg PO DAILY Cardio [place] PO lisinopril-hydrochlorothiazide 20-25 mg tablet 2 tab PO DAILY Patient Comments: BLOOD PRESSURE, HEART amlodipine 10 mg tablet 10 mg PO DAILY metoprolol succinate 100 mg tablet extended release 24 hr 100 mg PO QHS lorazepam [Ativan] 1 mg tablet 1 mg PO TID PRN (Reason: anxiety) Qty: 10 0RF Primary Care Provider: Jordyn Ayala NP Referrals: Jordyn Ayala NP, TECHNICAL SERVICE REP-C [Primary Care Provider] - Activity Restrictions/Additional Instructions: Please continue all of your other blood pressure medications as directed by your doctor but as your symptoms seem to be related to increased anxiety use the Ativan as needed for symptom control and return to the ER should you have any further concerns Print Language: Bengali Disposition Disposition: Home, Self Care Discharge Date/Time: 04/10/25 23:14
[2025-04-10 22:00] VITALS: BP 199/56; PULSE 71; RESP 16; O2SAT 97
[2025-04-10] MEDS: Lorazepam 2 MG/ML WCH Syringe 1 MG IV (22:33)
[2025-04-10 23:13] VITALS: BP 143/55; PULSE 68; RESP 18; TEMP 36.8; O2SAT 99
== END 2025-04-10 23:14 | disposition home or self-care (01) ==
PROVIDERS: Emergency Provider Emergency Medicine; PCP Nurse Practitioner Family; Visit Provider Emergency Medicine
DX: I10 Essential (primary) hypertension (principal); I27.21 Secondary pulmonary arterial hypertension; I48.0 Paroxysmal atrial fibrillation; I25.10 Atherosclerotic heart disease of native coronary artery without angina pectoris; E78.00 Pure hypercholesterolemia, unspecified; F41.9 Anxiety disorder, unspecified; Z79.82 Long term (current) use of aspirin; Z79.899 Other long term (current) drug therapy; Z86.73 Personal history of transient ischemic attack (TIA), and cerebral infarction without residual deficits; Z95.1 Presence of aortocoronary bypass graft
CPT/HCPCS: 93005; 96374; 99285; A4216

== ENCOUNTER 2025-08-04 15:24 | Emergency (ER) | payer MEDICARE, SELFPAY ==
[2025-08-04 15:26] VITALS: BP 185/62; PULSE 74; RESP 18; TEMP 36.3; O2SAT 97
[2025-08-04 15:28] VITALS: BMI 34.7
[2025-08-04 17:42] VITALS: BP 176/53; PULSE 69; RESP 18; O2SAT 99
[2025-08-04 19:00] VITALS: BP 161/53; PULSE 67; RESP 16; TEMP 36.6; O2SAT 98
[2025-08-04 19:06] VITALS: BP 161/53; PULSE 67; RESP 16; TEMP 36.6; O2SAT 98
== END 2025-08-04 19:28 | disposition home or self-care (01) ==
LOC: ED 18:52
PROVIDERS: Emergency Provider Surgery; PCP Nurse Practitioner Family; Visit Provider Surgery
DX: F41.0 Panic disorder [episodic paroxysmal anxiety] (principal); I48.0 Paroxysmal atrial fibrillation; I25.10 Atherosclerotic heart disease of native coronary artery without angina pectoris; I10 Essential (primary) hypertension; E78.00 Pure hypercholesterolemia, unspecified; Z79.82 Long term (current) use of aspirin; Z79.899 Other long term (current) drug therapy; Z86.73 Personal history of transient ischemic attack (TIA), and cerebral infarction without residual deficits; Z95.1 Presence of aortocoronary bypass graft
CPT/HCPCS: 99282

== ENCOUNTER 2025-08-21 13:50 | Emergency (ER) | payer MEDICARE, SELFPAY ==
[2025-08-21 13:51] VITALS: BP 179/45; PULSE 71; RESP 22; TEMP 36.1; O2SAT 100
--- NOTE | 2025-08-21 14:24 | EX.ED.DYSGE1 ---
HPI History of Present Illness Chief Complaint: Hypertension Informant: patient and spouse/S.O. Narrative Narrative: Patient is an 79-year-old female with a history of HTN and anxiety, presenting with elevated blood pressure readings and associated symptoms. - Reports 11 ED visits over the past 3 years for similar issues. - Recently started a new medication for anxiety (citalopram), taking half a pill per dose; has taken 3 doses over the past week, with skipped days in between. - Each dose reportedly followed by significant increase in blood pressure and heart rate 10-20 hours later; describes these as reactions to the drug. - This morning, felt well upon waking at 0800, but noted a blood pressure reading over 200 mmHg before taking her AM meds, leading to anxiety and a headache, which is improved now. - Denies chest pain or dyspnea this morning, though experienced mild symptoms last night. - Denies noticing any swelling. - Currently taking lisinopril and metoprolol for blood pressure, with doses in the morning and evening; no recent changes or missed doses. Took both these medications this morning before and after checking blood pressure. - Has found Ativan effective for managing anxiety attacks in the past, but my doctor won't prescribe it to me. Previously took amino acids, which reportedly helped with symptoms or anxiety, but now I think I need my amino acid levels checked again. 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 Secondary pulmonary arterial hypertension GERD (gastroesophageal reflux disease) Home Medications ?Medication ?Instructions ?Recorded ?Last Taken ?Type aspirin 81 mg tablet,delayed 81 mg PO DAILY heart health 09/22/22 Unknown History release vitamin B comp and C no.3 15 mg-10 1 cap PO DAILY supplement 11/02/22 Unknown History mg-50 mg-5 mg-300 mg capsule (B Complex Plus Vitamin C) folic acid 800 mcg tablet 0.8 mg PO DAILY supplement 12/20/23 Unknown History Cardio [place] PO DAILY 04/18/25 Unknown History buspirone 5 mg tablet 5 mg PO BID 04/18/25 Unknown History lisinopril 20 1 tab PO BID blood pressure 04/18/25 Unknown History mg-hydrochlorothiazide 25 mg tablet metoprolol succinate 100 mg 50 mg PO BID 04/18/25 Unknown History tablet,extended release 24 hr lorazepam 0.5 mg tablet (Ativan) 0.5 mg PO TID PRN anxiety 3 days 08/04/25 Unknown Rx #9 tabs Allergy/AdvReac Type Severity Reaction Status Date / Time heparin Allergy Other Verified 08/04/25 15:26 metformin AdvReac Other Verified 08/04/25 15:26 Family History Father CAD (coronary artery disease) CVA (cerebral vascular accident) Mother Diabetes Brother ablation for SVT x2 Surgical History History of hysterectomy H/O coronary artery bypass surgery (~08/23/16) Social History household members: spouse Smoking Status: Never smoker alcohol intake: never substance use type: does not use caffeine: Yes Type: coffee Number of servings: 1 what type of physical activity do you participate in: none ROS ROS ED Constitutional Constitutional ED: Denies chills or fever(s) Eyes Eyes: Denies change in vision or diplopia ENT ENT ED: Denies rhinorrhea or sore throat Cardiovascular Cardiovascular: Reports other Details: States she had a small amount of chest discomfort and shortness of breath for a couple minutes last night but none since ; Denies palpitations Respiratory/Chest Respiratory/Chest: Denies cough or dyspnea Gastrointestinal Gastrointestinal: Denies abdominal pain, diarrhea, nausea or vomiting Genitourinary Genitourinary ED: Denies dysuria or hematuria Musculoskeletal Musculoskeletal: Denies back pain or neck pain Integumentary Denies abscess or rash Neurologic Neurologic: Reports headache(s); Denies abnormal gait, abnormal speech, confusion, paresthesias or weakness Psychiatric Psychiatric: Reports anxiety; Denies suicidal thoughts EXAM Physical Exam Const Vital Signs: 08/21/25 13:51 08/21/25 14:37 08/21/25 15:50 Temperature 97 F L Temperature Source Temporal Pulse Rate 71 63 Respiratory Rate 22 H 16 Respiratory Effort Normal Respiratory Pattern Normal Blood Pressure 179/45 H 157/59 H Blood Pressure Mean 89 91 Pulse Ox 100 93 Oxygen Delivery Method Room Air Room Air Positive well nourished and well developed General Appearance ED: well developed and NAD HEENT Reports moist mucous membranes normocephalic and atraumatic Eyes PERRL and EOMs intact bilaterally Neck full ROM and supple Resp normal respiratory effort and clear to auscultation bilaterally Cardio regular rate, regular rhythm and no murmurs GI non-tender and non-distended Auscultation: normoactive bowel sounds Palpation: soft Back/Spine no CVA tenderness General Back: other FROM Extremity normal to inspection General Extremety ED: Negative for edema, pulses abnormal or tenderness General Extremity: Negative for edema or pulses abnormal Neuro oriented x3, CN's II-XII intact bilaterally and no sensory deficits noted Sensorium / Orientation: awake and alert Motor Exam: strength 5/5 throughout Psych Mood & Affect: anxious Skin no rashes or lesions noted and no wounds MDM MDM MDM Narrative Medical decision making narrative: The patient's blood pressure was monitored while she was in the ED. She does not have any acute symptoms at this time. The last time she experienced chest discomfort was yesterday, almost 24 hours ago. Her EKG is normal, and her troponin is 15 (with 14 being normal). I do not believe it is necessary to repeat or trend the troponin. Her repeat blood pressure is 157/59. She may need re-evaluation of her blood pressure medications, but I do not think an emergent change is required. Her other labs, including renal function, are normal. She is insistent that citalopram is causing these episodes of elevated blood pressure, which she also associates with her symptoms. I advised the patient that, given she has experienced similar issues with multiple other pills in the past and notices symptoms 10?20 hours after taking the medication, my suspicion is that the drug itself is unlikely the cause?though individual responses can vary. I recommended that she continue the medication, as she may notice an improvement in her anxiety after using it for a month. She requested benzodiazepines; however, because she is 79 years old, the risks of prescribing them may outweigh the benefits, particularly given how frequently she wants to use them. For that reason, I do not think prescribing benzodiazepines is appropriate at this time. She is advised to follow up with her primary care provider and continue her blood pressure medications as prescribed. Lab Data Attestation: I reviewed the patient's lab results. Labs: Laboratory Results - last 24 hr 08/21/25 14:36 WBC 8.8 RBC 4.03 L Hgb 12.5 Hct 37.8 MCV 93.8 MCH 31.0 MCHC 33.1 RDW Std Deviation 44.0 H RDW Coeff of Amber 12.6 Plt Count 291 MPV 10.3 Immature Gran % (Auto) 0.600 Neut % (Auto) 79.3 H Lymph % (Auto) 10.6 L [place] % (Auto) 6.0 Eos % (Auto) 2.8 Baso % (Auto) 0.7 Absolute Neuts (auto) 7.0 Absolute Lymphs (auto) 0.93 Nucleated RBC % 0 Sodium 137 Potassium 4.6 Chloride 104 Carbon Dioxide 20.8 L Anion Gap 12 BUN 17 Creatinine 0.75 Est GFR (MDRD) Non-Af 81 BUN/Creatinine Ratio 23.3 H Glucose 191 H Calcium 9.3 Troponin T High Sens 15 H D Rhythm Strip Rhythm Strip: Sinus Rhythm Rate: 70 Ectopy: None EKG Initial EKG: Attestation: I personally reviewed and interpreted this EKG as follows: Interpretation: Sinus Rhythm and No Acute Injury Pattern Comments: Nml axis & intervals; nml EKG Prior EKG tracings: available for review Prior: Unchanged Discharge Plan Triage Chief Complaint: Hypertension Other Complaint: Anxiety ED Provider: Salvatore Laughlin Dx/Rx/DC Orders Clinical Impression: Accelerated hypertension, Anxiety reaction, Chest pain, unspecified Instructions: Blood Pressure Check Steps Prescriptions: Continued B Complex Plus Vitamin C [id number] mg capsule 1 cap PO DAILY Rx Instructions: give with food (meal/snack) aspirin 81 mg tablet,delayed release (DR/EC) 81 mg PO DAILY folic acid 800 mcg tablet 0.8 mg PO DAILY Cardio [place] PO DAILY buspirone 5 mg tablet 5 mg PO BID lisinopril-hydrochlorothiazide 20-25 mg tablet 1 tab PO BID Patient Comments: BLOOD PRESSURE, HEART metoprolol succinate 100 mg tablet extended release 24 hr 50 mg PO BID lorazepam [Ativan] 0.5 mg tablet 0.5 mg PO TID PRN (Reason: anxiety) 3 Days Qty: 9 0RF Primary Care Provider: Jordyn Ayala [employer] Referrals: Jordyn Ayala [employer], [employer] [Primary Care Provider, Medical] - As soon as possible Print Language: Telugu Disposition Disposition: Home, Self Care
[2025-08-21 14:48] LABS: Hematocrit 37.8 % (37-47); Hemoglobin 12.5 g/dL (12.0-15.0); Immature Granulocytes Count 0.050 X10^3/uL (0.0-0.0); Mean Corp Hgb Conc 33.1 g/dL (32-36); Mean Corpuscular Volume 93.8 fL (81-99); Mean Platelet Vol. 10.3 fl (6.2-12.0); NRBC Flagged by Analyzer 0 % (0-5); Platelet Count 291 K/mm3 (150-450); RBC Distribution Width CV 12.6 % (11.6-14.6); RBC Distribution Width SD 44.0 fl (35.1-43.9); Red Blood Count 4.03 M/mm3 (4.2-5.4); White Blood Count 8.8 K/mm3 (4.4-11.0)
[2025-08-21 15:11] LABS: Troponin T High Sensitivity 15 ng/L (<=14)
[2025-08-21 15:12] LABS: Anion Gap 12 (5-15); BUN 17 mg/dL (4-19); BUN/Creat Ratio 23.3 RATIO (10-20); Calcium,Total 9.3 mg/dL (7.6-11.0); Carbon Dioxide 20.8 mmol/L (21.0-32.0); Chloride 104 mmol/L (98-108); Glucose 191 mg/dL (70-99); Potassium 4.6 mmol/L (3.3-5.1)
[2025-08-21 15:50] VITALS: BP 157/59; PULSE 63; RESP 16; O2SAT 93
[2025-08-21 16:31] VITALS: BP 142/54; PULSE 65; RESP 16; TEMP 36.6; O2SAT 98
== END 2025-08-21 16:32 | disposition home or self-care (01) ==
PROVIDERS: Emergency Provider Emergency Medicine; PCP Nurse Practitioner Family; Visit Provider Emergency Medicine
DX: I10 Essential (primary) hypertension (principal); I48.0 Paroxysmal atrial fibrillation; R07.9 Chest pain, unspecified; R51.9 Headache, unspecified; I25.10 Atherosclerotic heart disease of native coronary artery without angina pectoris; E78.00 Pure hypercholesterolemia, unspecified; F41.1 Generalized anxiety disorder; Z79.82 Long term (current) use of aspirin; Z79.899 Other long term (current) drug therapy; Z86.73 Personal history of transient ischemic attack (TIA), and cerebral infarction without residual deficits
CPT/HCPCS: 80048; 84484; 85025; 93005; 99285; A4216